=== PATIENT | female | born 1990 | race African-American/Black ===

== ENCOUNTER 2019-11-13 13:00 | Emergency (ER) | payer OTHER, SELFPAY ==
--- NOTE | ~2019-11-13 | US_ITS ---
EXAMINATION: US OB <=14 wk fetus w TV EXAM DATE: 11/13/2019 17:22 INDICATION: Abdominal pain. First trimester. TECHNIQUE: Pelvic obstetrical transabdominal sonogram was performed by a technologist. There are mu ltiple grayscale and Doppler images available for interpretation. There are no earlier studies of th is gestation for comparison. FINDINGS: Uterus measures 8.5 x 4.0 x 5.0 cm with the endometrium measuring 10 mm in thickness. There is no intrauterine or extrauterine identified, correlate with the beta hCG levels. Right ovary measures 4.7 x 3.2 x 3.0 cm with isoechoic lesion probably fluid filled with increased th rough transmission measuring 2.1 x 1.6 x 2.1 cm, could be a corpus luteal or hemorrhagic cyst. No ruben rounding hypervascularity. Color and Doppler flow to this ovary confirmed. Left ovary measures 2.8 x 2.2 x 2.3 cm, with an anechoic cyst measuring 1.5 cm. Color and Doppler aide w confirmed. Small amount of free fluid in the pelvic cul-de-sac. Early intrauterine or recent spontaneous are common causes of elevated beta hCG in absence of intrauterine confirmation. Ultrasound can sometimes identify, but never exclud e an ectopic in the setting of positive beta hCG. Follow up as warranted clinically with s erial beta hCG levels or ultrasound. IMPRESSION: No intrauterine or extrauterine identified. Follow-up as indicated clinically. Right ovarian lesion probably corpus luteal or hemorrhagic cyst. Reviewed, dictated and finalized at location A. IMPRESSION: No intrauterine or extrauterine identified. Follow-up as indicated clinically. Right ovarian lesion probably corpus luteal or hemorrhag ic cyst.
[2019-11-13 13:03] VITALS: BP 134/67; PULSE 106; RESP 18; TEMP 36.6; O2SAT 100
[2019-11-13 13:16] VITALS: BP 134/67; PULSE 106; RESP 16; TEMP 36.6; O2SAT 100
[2019-11-13 13:40] LABS: Basophils Percent Auto 0.4 % (0.2-1.2); Eosinophils Absolute Auto 0.6 K/mm3 (0-0.3); Eosinophils Percent Auto 12.4 % (0-4.4); Hematocrit 33.7 % (37.0-47.0); Hemoglobin 11.4 g/dL (12.0-15.0); Lymphocytes Absolute Auto 1.38 K/mm3 (0.9-3.2); Lymphocytes Percent Auto 29.6 % (18.3-44.2); Mean Corpuscular HGB Conc 33.8 g/dl (32-36); Mean Corpuscular Hemoglobin 29.5 pg (26-34); Mean Corpuscular Volume 87.3 fl (80-100); Mean Platelet Volume 7.9 fl (7.4-10.4); Monocytes Absolute Auto 0.4 K/mm3 (0.1-0.6); Monocytes Percent Auto 8.8 % (2.6-8.5); Neutrophils Absolute Auto 2.3 K/mm3 (1.3-6.7); Neutrophils Percent Auto 48.8 % (45.5-73.1); Platelet Count Result 310 k/mm3 (150-375); Red Blood Count 3.86 M/mm3 (4.2-5.4); Red Cell Distribution Width 14.4 % (11.5-14.5); White Blood Count 4.7 K/mm3 (4.5-10.0)
[2019-11-13 13:53] LABS: Alanine Aminotransferase 15 U/L (4-35); Albumin Level 4.2 g/dL (3.5-5.1); Alkaline Phosphatase 73 U/L (38-126); Aspartate Amino Transferase 25 U/L (14-36); Bilirubin,Total 0.5 mg/dL (0.2-1.3); Blood Urea Nitrogen 8 mg/dL (7-17); Calcium 8.8 mg/dL (8.4-10.2); Carbon Dioxide 27 mmol/L (22-30); Chloride 102 mmol/L (98-107); Estimated CRCL calculation 128 ml/min; Estimated Glomerular Filt Rate > 60; Glucose 94 mg/dL (65-105); Lipase 35 U/L (23-300); Potassium 3.6 mmol/L (3.4-5.0); Sodium 136 mmol/L (137-145)
[2019-11-13] MEDS: ONDANSETRON INJ 4 MG/2 ML VIAL IV PUSH (15:01)
[2019-11-13] MEDS: SODIUM CHLORIDE 0.9% IV 1,000 ML 999 ML IV CONT (15:05)
--- NOTE | 2019-11-13 15:19 | ED.ABDPAIN ---
HPI - Abdominal Pain General Chief Complaint: Abdominal Pain <HOANG Son Last Filed: 11/13/19 20:10> Stated Complaint: abd pain <HOANG Son Last Filed: 11/13/19 20:10> Time Seen by Provider: 11/13/19 15:04 <HOANG Son Last Filed: 11/13/19 20:10> Source: patient <HOANG Son Last Filed: 11/13/19 20:10> Mode of arrival: ambulatory <HOANG Son Last Filed: 11/13/19 20:10> Limitations: no limitations <HOANG Son Last Filed: 11/13/19 20:10> History of Present Illness HPI narrative: This is a 28 year old female that presents to the ER for abdominal pain x 1 week. Reports sharp right sided abdominal pain that has been intermittent. Associated with nausea. Denies fever, vomiting, dysuria or hematuria. <Zo Weldon PA-C - Last Filed: 11/13/19 20:10> Related Data Allergies/Adverse Reactions: Allergies Allergy/AdvReac Type Severity Reaction Status Date / Time No Known Drug Allergies Allergy Unknown Verified 04/07/19 16:43 <HOANG Son Last Filed: 11/13/19 20:10> Review of Systems Review of Systems: Narrative: CONSTITUTIONAL: Denies fever GASTROINTESTINAL: Reports abdominal pain, nausea. Denies vomiting, or diarrhea. GENITOURINARY: Denies dysuria or hematuria. <Zo Weldon PA-C - Last Filed: 11/13/19 20:10> All systems reviewed & are unremarkable except as noted in HPI and below <HOANG Son Last Filed: 11/13/19 20:10> [facility] Past Medical History Medical History: Medical History (Updated 11/14/19 @ 00:00 by Av Fernandez) History of depression <HOANG Son Last Filed: 11/13/19 20:10> Social History Social History: Social History (Updated 05/11/20 @ 15:22 by Zo Weldon PA-C) Substance use type: marijuana Gender identity (if verbalized by the patient): Female <Zo Weldon PA-C - Last Filed: 11/13/19 20:10> Exam Narrative: Exam Narrative: GENERAL: Well-appearing, well-nourished, and in no acute distress. HEAD: Normocephalic, atraumatic. EYES: EOMI. CHEST: Clear to auscultation. No respiratory distress. No wheezes rales or rhonchi HEART: Regular rate and rhythm. No murmur heard. Normal peripheral pulses. ABDOMEN: Soft, nondistended, normal active bowel sounds. Tender to palpation in the RLQ, without guarding EXTREMITIES: Normal range of motion. No edema. SKIN: Warm, dry, no rash. NEURO: No focal deficits. Alert and oriented x3. PSYCH: Normal mood and affect <Zo Weldon PA-C - Last Filed: 11/13/19 20:10> Course Consultations Consultation #1: Spoke with electrical & instrumentation supervisor doctor for Dr. Rolon about workup who would like patient to follow up in clinic <Zo Weldon PA-C - Last Filed: 11/13/19 20:10> Date: 11/13/19 <Zo Weldon PA-C - Last Filed: 11/13/19 20:10> Time: 20:08 <Zo Weldon PA-C - Last Filed: 11/13/19 20:10> Vital Signs Vital signs: Vital Signs Temperature 97.8 F 11/13/19 13:03 Pulse Rate 106 H 11/13/19 13:03 Respiratory Rate 18 11/13/19 13:03 Blood Pressure 134/67 11/13/19 13:03 Pulse Oximetry 100 11/13/19 13:03 Temperature 97.8 F 11/13/19 20:34 Pulse Rate 71 11/13/19 20:34 Respiratory Rate 18 11/13/19 20:34 Blood Pressure 123/70 11/13/19 20:34 Pulse Oximetry 99 11/13/19 20:34 <Zo Weldon PA-C - Last Filed: 11/13/19 20:10> Vital Signs Temperature 97.8 F 11/13/19 13:03 Pulse Rate 106 H 11/13/19 13:03 Respiratory Rate 18 11/13/19 13:03 Blood Pressure 134/67 11/13/19 13:03 Pulse Oximetry 100 11/13/19 13:03 Temperature 97.8 F 11/13/19 20:34 Pulse Rate 71 11/13/19 20:34 Respiratory Rate 18 11/13/19 20:34 Blood Pressure 123/70 11/13/19 20:34 Pulse Oximetry 99 11/13/19 20:34 <Tanesha Garcia MD - Last Filed: 11/14/19 07:39> MDM - Abdominal Pain MDM Narrative Medical decision m
[2019-11-13 15:52] LABS: Add Urine Microscopic? NO; Appearance Urine Clear (Clear); Bilirubin Urine Negative (Negative); Blood Urine Negative (Negative); Color Urine Yellow (Yellow); Glucose Urine UA Negative (Negative); Ketones Urine Negative (Negative); Leukocyte Esterase Ur Negative LEU/UL (Negative); Nitrate Urine Negative (Negative); Protein Urine Negative (Negative); Specific Grav Ur 1.012 (1.001-1.035); Urobilinogen Urine Negative mg/dL (<2.0)
[2019-11-13 17:40] VITALS: BP 111/73; PULSE 75; RESP 12; O2SAT 99
[2019-11-13 20:34] VITALS: BP 123/70; PULSE 71; RESP 18; TEMP 36.6; O2SAT 99
== END 2019-11-13 20:35 | disposition home or self-care (01) ==
PROVIDERS: Physician Assistant; Emergency Provider Emergency Medicine
DX: O34.81 Maternal care for other abnormalities of pelvic organs, first trimester (principal); N83.201 Unspecified ovarian cyst, right side; Z3A.01 Less than 8 weeks gestation of pregnancy
CPT/HCPCS: 36415; 76801; 76817; 80053; 81003; 81025; 83690; 84702; 85025; 96361; 96374; 96375; 99284; J0131; J2405; J7030

== ENCOUNTER 2019-11-16 13:52 | Emergency (ER) | payer OTHER, SELFPAY ==
[2019-11-16] VITALS (31 sets, daily range): BP systolic 97–125; BP diastolic 63–81; PULSE 72–92; RESP 16–18; TEMP 36.8–37; O2SAT 85–100
--- NOTE | ~2019-11-16 | US_ITS ---
US OB <=14 wk fetus w TV DATE: 11/16/2019 15:49 INDICATION: Right lower quadrant pain TECHNIQUE: Real-time imaging via transabdominal and transvaginal approaches COMPARISON: 11/13/2019 obstetrical ultrasound FINDINGS: The uterus measures approximately 7 cm height, 4.4 cm AP and 5.8 cm transverse dimension. N o intrauterine gestational sac is identified. The central endometrial echo complex measures approxima tely 8 mm AP dimension. There is an approximately 13 x 11 x 15 mm left ovarian cyst. There is blood flow to both ovaries. No pelvic mass or abnormal free pelvic fluid collection is evident. IMPRESSION: Up to 15 mm left ovarian cyst No intrauterine gestational sac is identified Reviewed, dictated and finalized at Location [facility]. Reviewed, dictated and finalized at location A.
--- NOTE | 2019-11-16 14:56 | ED.FEMALEGU ---
HPI - Female Genitourinary General Chief complaint: Vaginal Bleeding Stated complaint: /bleeding/5 weeks Time Seen by Provider: 11/16/19 14:30 Source: patient Mode of arrival: ambulatory Limitations: no limitations History of Present Illness HPI Narrative: Patient is a 28-year-old female who presents to the emergency department with complaint of right lower abdominal/pelvic pain. Patient also reports some blood-tinged vaginal mucoid discharge. Patient was seen here in the emergency department 3 days ago for symptoms of right lower abdominal pain. Ultrasound at that time showed no evidence of intrauterine or extrauterine . Patient was noted to have a right ovarian lesion possibly a corpus luteal or hemorrhagic cyst. No evidence of torsion was noted. hCG level 3 days ago was 2207. Patient states she has not been able to follow-up with her LOAN EXPEDITOR who is currently out of town. Patient states the pain is a bit better today than what it has been, but she is now having bloody discharge and still does note pain. The pain subsides when she is at rest and is worse when she is moving at all. MD elicited complaint: vaginal bleeding Location of symptoms: RLQ and pelvis Vaginal bleeding: scant and bright red Patient : Yes Date of Last Menstrual Period: 10/14/19 Related Data : 3 Para: 2 Total number of abortions (spontaneous and elective): 0 Home Medications Medication Instructions Recorded Confirmed 21-iron fu-folic acid 1 tablet PO 11/16/19 [ Complete] Allergies Allergy/AdvReac Type Severity Reaction Status Date / Time No Known Drug Allergies Allergy Unknown Verified 04/07/19 16:43 Review of Systems Review of Systems: All systems reviewed & are unremarkable except as noted in HPI and below PMFSH Past Medical History Medical History History of depression Social History Social History (Updated 11/16/19 @ 14:57 by Inez Lara MD) Smoking status: Former smoker Tobacco type: cigarettes Substance use type: marijuana Gender identity (if verbalized by the patient): Female Exam Const: General: cooperative, no acute distress and alert Nutritional Appearance: well nourished Orientation/consciousness: patient oriented x3 Limitations: no limitations Resp: Effort & Inspection: normal respiratory effort Auscultation: clear to auscultation bilaterally Cardio: Rate: regular rate Rhythm: regular rhythm GI: GI Palp: Yes Soft to palpation and Yes Tenderness to palpation present (GI) (Mild right lower quadrant) Auscultation: normal bowel sounds : Speculum Exam - Vagina: vaginal bleeding (Small amount dark in vaginal vault) and No tissue present in vagina Speculum Exam - Cervix: Cervical os closed Back/Spine/Pelvis: Back: no CVA tenderness Thoracic/Lumbar Spine: thoraco-lumbar ROM normal Skin: General skin exam: normal color Neuro: General: patient oriented x3 Cognition (Neuro): normal cognition Speech: normal speech Extrem: General: normal to inspection, full ROM and no clubbing, cyanosis or edema Psych: Mental Status: mental status grossly normal Affect: normal affect Attitude: cooperative Course Course Emergency Course: Patient with significant drop in beta-hCG level compared to ED visit 3 days ago. Patient still with no findings to suggest intrauterine or ectopic on ultrasound. Case discussed with Dr. Sosa who will follow-up patient in the office for repeat hCG levels. Patient advised she is likely having a miscarriage. Consultations Consultation #1: Case discussed with Dr. Sosa, LOAN EXPEDITOR, who will follow-up patient in the office next week. Requested order for hCG level in 1 week. Date: 11/16/19 Time: 18:10 Vital Signs Vital signs: Vital Signs Temperature 98.6 F 11/16/19 14:07 Pulse Rate 92 11/16/19 14:07 Respiratory Rate 16 11/16/19 14:07 Bl
[2019-11-16 16:07] LABS: Basophils Percent Auto 0.7 % (0.2-1.2); Eosinophils Absolute Auto 0.6 K/mm3 (0-0.3); Hematocrit 33.2 % (37.0-47.0); Immature Granulocyte Absolute 0.01 K/mm3 (0.00-0.031); Immature Granulocyte Percent A 0.2 % (0-0.5); Lymphocytes Absolute Auto 1.41 K/mm3 (0.9-3.2); Lymphocytes Percent Auto 23.5 % (18.3-44.2); Mean Corpuscular HGB Conc 33.1 g/dl (32-36); Mean Corpuscular Hemoglobin 29.6 pg (26-34); Mean Corpuscular Volume 89.5 fl (80-100); Mean Platelet Volume 8.6 fl (7.4-10.4); Monocytes Absolute Auto 0.5 K/mm3 (0.1-0.6); Monocytes Percent Auto 8.2 % (2.6-8.5); Neutrophils Absolute Auto 3.5 K/mm3 (1.3-6.7); Neutrophils Percent Auto 57.4 % (45.5-73.1); Platelet Count Result 312 k/mm3 (150-375); Red Blood Count 3.71 M/mm3 (4.2-5.4); Red Cell Distribution Width 14.5 % (11.5-14.5)
[2019-11-16 16:14] LABS: Add Urine Microscopic? YES; Appearance Urine Clear (Clear); Bilirubin Urine Negative (Negative); Blood Urine 1+ (Negative); Color Urine Yellow (Yellow); Glucose Urine UA Negative (Negative); Ketones Urine Negative (Negative); Leukocyte Esterase Ur Negative LEU/UL (Negative); Mucus Urine Heavy /lpf; Nitrate Urine Negative (Negative); Protein Urine Negative (Negative); RBC Urine 0-2 /hpf (0-2); Specific Grav Ur 1.013 (1.001-1.035); Squamous Epithelial Cell Urine Rare /hpf (Few); Urobilinogen Urine Negative mg/dL (<2.0); WBC Urine 0-3 /hpf
[2019-11-16 16:22] LABS: Alanine Aminotransferase 22 U/L (4-35); Albumin Level 4.5 g/dL (3.5-5.1); Alkaline Phosphatase 77 U/L (38-126); Aspartate Amino Transferase 36 U/L (14-36); Bilirubin,Total 0.3 mg/dL (0.2-1.3); Blood Urea Nitrogen 11 mg/dL (7-17); Calcium 9.1 mg/dL (8.4-10.2); Carbon Dioxide 27 mmol/L (22-30); Chloride 103 mmol/L (98-107); Estimated CRCL calculation 114 ml/min; Estimated Glomerular Filt Rate > 60; Glucose 73 mg/dL (65-105); Potassium 3.7 mmol/L (3.4-5.0); Sodium 137 mmol/L (137-145)
== END 2019-11-16 19:50 | disposition home or self-care (01) ==
PROVIDERS: Physician Assistant; Emergency Provider Emergency Medicine
DX: O20.0 Threatened abortion (principal); Z87.891 Personal history of nicotine dependence; Z3A.00 Weeks of gestation of pregnancy not specified
CPT/HCPCS: 36415; 76801; 76817; 80053; 81001; 84702; 85025; 85461; 99284

== ENCOUNTER 2019-11-29 15:51 | Outpatient (CLI) | payer OTHER, SELFPAY ==
--- NOTE | ~2019-11-29 | CT_ITS ---
EXAMINATION: CT abdomen pelvis w con EXAM DATE: 11/29/2019 16:23 INDICATION: Right-sided abdominal pain, symptoms 2 weeks. TECHNIQUE: Spiral CT of the abdomen and pelvis was performed following intravenous injection of 100 m L Omnipaque 350. Axial, coronal and sagittal images were reviewed. The dose-length product (DLP) fo r this examination was 483.49 mGy-cm. The exposure was tailored according to patient size (auto mA e xposure control), and iterative reconstruction (ASIR) was used as additional dose reduction technique . There is no prior study for comparison. FINDINGS: The liver, spleen, adrenal glands and pancreas are unremarkable. Gallbladder is unremarka ble. No biliary obstruction. Portal and splenic veins are patent. Kidneys enhance symmetrically. There is no hydronephrosis. The uterus is anteverted and morphologically normal. Small amount of fr ee pelvic fluid, could be from recently ruptured right-sided hemorrhagic cyst. If symptoms persist co nsider pelvic sonogram. The bladder is unremarkable. There is no retroperitoneal or pelvic lymphade nopathy. Probable identification of a normal appendix. No pericecal inflammation. The stomach and small zeina l are unremarkable. There is expected amount of colonic stool. No free intraperitoneal gas. The heart is normal in size. There are no pericardial or pleural effusions. The lung bases are unremark able. The bones are unremarkable. IMPRESSION: Possible recently ruptured right sided ovarian hemorrhagic cyst; if symptoms persist, con it program auditor pelvic sonogram. Reviewed, dictated and finalized at location A. IMPRESSION: Possible recently ruptured right sided ovarian hemorrhagic cyst; if symptoms persist, consider pelvic sonogram.
== END 2019-11-29 15:52 | disposition home or self-care (01) ==
PROVIDERS: PCP Nurse Practitioner Family; Visit Provider Nurse Practitioner Family
DX: R10.9 Unspecified abdominal pain (principal)
CPT/HCPCS: 74177; Q9967

== ENCOUNTER 2020-03-04 09:52 | Outpatient (CLI) | payer OTHER, SELFPAY ==
--- NOTE | ~2020-03-04 | US_ITS ---
EXAMINATION: US OB <=14 wk fetus w TV DATE: 03/04/2020 11:04 INDICATION: History of spontaneous, first trimester dating TECHNIQUE: Real-time pelvic transabdominal and transvaginal ultrasound was performed. COMPARISON: None. FINDINGS: The uterus measures 9.2 x 5.5 x 5.1 cm. There is an intrauterine gestational sac. A yolk s ac is identified. heart motion is identified by M-mode Doppler but not measured due to small fe shaan pole size. The mean sac diameter measures 9 mm , which correlates with an estimated gestati onal age of 5 weeks and 5 day(s) (+/-) 3 day(s). The right ovary measures 1.9 x 6.4 x 2.0 cm. The left ovary measures 2.4 x 2.3 x 2.4 cm. There is nor mal vascular flow in the ovaries. There is a small amount of free fluid in the pelvis. IMPRESSION: 1. Live intrauterine with an estimated gestational age of 5 weeks and 5 day(s) (+/-) 3 day( s) and an estimated delivery date of 10/30/2020 based on mean sac diameter. Reviewed, dictated and finalized at location A. IMPRESSION: 1. Live intrauterine with an estimated gestational age of 5 weeks and 5 day(s) (+/-) 3 day(s) and an estimated delivery date of 10/30/2020 based on m pina sac diameter.
== END 2020-03-04 09:53 | disposition home or self-care (01) ==
LOC: ANHIMG 09:54
PROVIDERS: PCP Nurse Practitioner Family; Visit Provider Obstetrics & Gynecology Gynecology
DX: O26.21 Pregnancy care for patient with recurrent pregnancy loss, first trimester (principal); Z3A.01 Less than 8 weeks gestation of pregnancy
CPT/HCPCS: 76801; 76817

== ENCOUNTER 2020-05-09 12:36 | Outpatient (RCR) | payer OTHER, SELFPAY ==
--- NOTE | 2020-05-09 13:58 | PTOPEVAL ---
INITIAL PHYSICAL THERAPY EVALUATION and PLAN OF CARE Thank you for referring Gamaliel Jack to [facility].? Gamaliel is scheduled to be seen for physical therapy? 1-2x/week for 4 weeks. Please review, sign, date and return this plan of care ABDULKADIR. I agree with and certify that the following plan of care is medically necessary. Referring Physician Date Admitting Provider: Attending Provider: Whitney Sosa MD Referring Provider: *PT Outpatient Evaluation Start: 05/09/20 12:49 Freq: Status: Active Protocol: Document 05/09/20 12:45 PAUL (Rec: 05/09/20 13:58 PAUL [id number]) Therapy Assessment Status Assessment Status Assessment Status Evaluation Outpatient Past Medical History Past Medical History Source of Past Medical History Patient Neurological History Hx Neurological Disorders No Significant History Cardiovascular History Hx Cardiac Disorders No Significant History Respiratory History Hx Respiratory Disorders No Significant History Gastrointestinal History Hx Gastroesophageal Reflux Disease Yes Genitourinary History Hx Genitourinary Disorders No Significant History Musculoskeletal History Hx Back Injury Yes: lumbar strain Hx Fractures Yes: L 3rd finger - 2015 Endocrine History Hx Endocrine Disorders No Significant History Psychosocial History Hx Anxiety Yes Evaluation Information Problem Diagnosis back and pelvic pain - 15 wks gestation Onset began 8-10 weeks gestation Subjective Information Gamaliel reports that this is Query Text:As Reported By Patient/ her 3rd - the back Family and pubic symphysis has progressively gotten worse with each . Gamaliel reports that the pain as lessen a little bit as the fetus has grown - she has a retroverted uterus - thinks fetus is straigthening things out. No difficulty with labor and deliveries. 1st child - discomfort began around 7 months, 2nd child around 5 months. Lying down on a soft surface feels the best. Walking for extended period, running, moving real quickly, pushing grocery cart. Stairs uncomfortable as well - lots of steps at her home. Prior Level of Function Activity Level (Last 3 Months) Occupation
--- NOTE | 2020-05-23 08:17 | PCPTNOTE ---
Patient did not show up for scheduled appointment this date. Phone call made - pt stated that she is bleeding (pt is ) - going to call MD today. This was her only scheduled appointment - will await to see if she returns to PT.
--- NOTE | 2020-06-04 11:45 | PCPTNOTE ---
PHYSICAL THERAPY DISCHARGE SUMMARY Admitting Provider: Attending Provider: Whitney Sosa MD Patient:Gamaliel Jack Date of :1990 Gamaliel has not returned for any further treatments since 05/09/2020, therefore she will be discharged at this time. Patient?s initial visit was on 05/09/2020 12:30 and she had a total of 1 visit. She did not attend 05/23/2020 visit due to vaginal bleeding. She has not called to reschedule any further appointments. Thank you for referring Gamaliel to [facility]. Please review, sign, date and return this discharge summary ABDULKADIR. I have been updated about Gamaliel's current status and I agree with discharge from the above service at this time. Referring Physician Date
== END 2020-06-04 14:59 | disposition home or self-care (01) ==
LOC: ANHPT 12:36
PROVIDERS: PCP Nurse Practitioner Family; Visit Provider Obstetrics & Gynecology Gynecology
DX: M54.5 Low back pain (principal); R10.2 Pelvic and perineal pain
CPT/HCPCS: 97110; 97161

== ENCOUNTER 2020-06-17 15:07 | Emergency (ER) | payer OTHER, SELFPAY ==
[2020-06-17 15:13] VITALS: BP 117/79; PULSE 85; RESP 18; TEMP 37; O2SAT 98
--- NOTE | 2020-06-17 15:37 | ED.GENADULT ---
HPI - General Adult General Chief complaint: Unspecified Stated complaint: infected external hemorrhoid Time Seen by Provider: 06/17/20 15:13 Source: patient Mode of arrival: ambulatory Limitations: no limitations History of Present Illness HPI narrative: Patient is a 29-year-old female who presents to emergency department for evaluation of hemorrhoidal pain patient for the last 2 weeks has been experiencing hemorrhoids patient with history of hemorrhoids has follow-up with general surgery for first visit. Patient notes discomfort has been attempting [id number] medications with minimal improvement denies fever chills nausea vomiting otherwise on arrival is in no distress denies any constipation. Related Data Home Medications Medication Instructions Recorded Confirmed 21-iron fu-folic acid 1 tablet PO 11/16/19 [ Complete] propranolol 80 mg capsule,24 80 mg PO DAILY 06/17/20 hr,extended release venlafaxine 75 mg capsule,extended 75 mg PO DAILY 06/17/20 release 24 hr Allergies Allergy/AdvReac Type Severity Reaction Status Date / Time No Known Drug Allergies Allergy Unknown Unknown Verified 06/17/20 15:08 Review of Systems Review of Systems: All systems reviewed & are unremarkable except as noted in HPI and below PMFSH Past Medical History Medical History History of depression Surgical History Surgical History Hemorrhoid lanced Family History Family History (Updated 06/17/20 @ 14:07 by Maribell Lin [facility]) Mother Lupus Sibling Hypertension Social History Social History Smoking status: Former smoker Tobacco type: cigarettes Alcohol intake: never Substance use type: marijuana 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 HEAD: Normocephalic, atraumatic. EYES: PERRLA and EOMI. ENT: Nares clear, no rhinorrhea or epistaxis. Mucous membranes moist. CHEST: Clear to auscultation. No respiratory distress. No wheezes rales or rhonchi HEART: Regular rate and rhythm. No murmur heard. Normal peripheral pulses. ABDOMEN: Soft, nontender, nondistended RECTAL: Patient with 3 large hemorrhoids no active bleeding or cellulitic changes EXTREMITIES: Normal range of motion. No edema. SKIN: Warm, dry, no rash. NEURO: No focal deficits. Alert and oriented x3. PSYCH: Normal mood and affect. Course Course Emergency Course: Patient with follow-up with general surgery in the next several days will be managed symptomatically until then with topical medications and sitz bath's Vital Signs Vital signs: Vital Signs Temperature 98.6 F 06/17/20 15:13 Pulse Rate 85 06/17/20 15:13 Respiratory Rate 18 06/17/20 15:13 Blood Pressure 117/79 06/17/20 15:13 Pulse Oximetry 98 06/17/20 15:13 Temperature 98.6 F 06/17/20 15:13 Pulse Rate 85 06/17/20 15:13 Respiratory Rate 18 06/17/20 15:13 Blood Pressure 117/79 06/17/20 15:13 Pulse Oximetry 98 06/17/20 15:13 Medical Decision Making MDM Narrative Medical decision making narrative: Patient with hemorrhoids no distress will be managed outpatient with close follow-up with general surgery felt appropriate for outpatient reevaluation Vital Signs Vital Signs: Vital Signs Temperature 98.6 F 06/17/20 15:13 Pulse Rate 85 06/17/20 15:13 Respiratory Rate 18 06/17/20 15:13 Blood Pressure 117/79 06/17/20 15:13 Pulse Oximetry 98 06/17/20 15:13 Temperature 98.6 F 06/17/20 15:13 Pulse Rate 85 06/17/20 15:13 Respiratory Rate 18 06/17/20 15:13 Blood Pressure 117/79 06/17/20 15:13 Pulse Oximetry 98 06/17/20 15:[address]
== END 2020-06-17 15:59 | disposition home or self-care (01) ==
PROVIDERS: Emergency Provider Family Medicine; PCP Nurse Practitioner Family
DX: K64.9 Unspecified hemorrhoids (principal); F32.9 Major depressive disorder, single episode, unspecified; Z87.891 Personal history of nicotine dependence
CPT/HCPCS: 99283

== ENCOUNTER 2020-11-20 09:47 | Outpatient (CLI) | payer OTHER, SELFPAY ==
--- NOTE | ~2020-11-20 | US_ITS ---
EXAMINATION: US OB <=14 wk fetus w TV EXAM DATE: 11/20/2020 10:25 INDICATION: , dating. 1st trimester. TECHNIQUE: Pelvic obstetrical transabdominal sonogram was performed by a technologist. There are mu ltiple grayscale and Doppler images available for interpretation. There are no earlier studies of th is gestation for comparison. FINDINGS: Uterus measures 10.0 x 5.4 x 6.1 cm. There is intrauterine gestation sac. pole with heart rate confirmed at 110 beats per minute. The 3 mm crown-rump length corresponds to estimated g estational age by ultrasound of 6 weeks 0 days, estimated date of confinement 07/16/2021. Yolk sac is identified. There is no sonographic evidence of subchorionic hemorrhage. Corpus luteal cyst prob ably in the left ovary. Ovaries are both normal in size, right measuring 2.0 x 1.2 x 1.4 cm and the l eft measuring 2.4 x 2.6 x 2.9 cm. IMPRESSION: Early live intrauterine gestation, age by ultrasound 6 weeks 0 days. Reviewed, dictated and finalized at location A. IMPRESSION: Early live intrauterine gestation, age by ultrasound 6 weeks 0 day s.
== END 2020-11-20 09:48 | disposition home or self-care (01) ==
PROVIDERS: Visit Provider Obstetrics & Gynecology Gynecology
DX: Z36.9 Encounter for antenatal screening, unspecified (principal); Z3A.01 Less than 8 weeks gestation of pregnancy
CPT/HCPCS: 76801; 76817

== ENCOUNTER 2020-12-19 12:59 | Outpatient (CLI) | payer OTHER, SELFPAY ==
--- NOTE | ~2020-12-19 | US_ITS ---
EXAMINATION: US OB <= 14 weeks fetus EXAM DATE: 12/19/2020 13:30 INDICATION: , vaginal spotting. 1st trimester. TECHNIQUE: Pelvic obstetrical transabdominal sonogram was performed by a technologist. There are mu ltiple grayscale and Doppler images available for interpretation. Comparison is made to prior examina tion from 11/20/2020. FINDINGS: Uterus measures 12.3 x 7.8 x 7.2 cm. There is intrauterine gestation sac. pole with heart rate confirmed at 165 beats per minute. The 3.4 cm crown-rump length corresponds to estimated gestational age by ultrasound of 10 weeks 2 days. Yolk sac is identified. There is no sonographic evidence of subchorionic hemorrhage. Left ovary identified and is morphologically normal. IMPRESSION: Early live intrauterine gestation without evidence of subchorionic hematoma. Reviewed, dictated and finalized at location B.
== END 2020-12-19 13:00 | disposition home or self-care (01) ==
PROVIDERS: PCP Family Medicine; Visit Provider Obstetrics & Gynecology Gynecology
DX: Z34.91 Encounter for supervision of normal pregnancy, unspecified, first trimester (principal); Z3A.10 10 weeks gestation of pregnancy
CPT/HCPCS: 76801

== ENCOUNTER 2022-02-26 14:22 | Outpatient (CLI) | payer OTHER, SELFPAY ==
[2022-02-28 14:01] LABS: NIL 0.01 IU/mL; Quantiferon TB Plus, 1T NEGATIVE (NEGATIVE)
== END 2022-02-26 14:23 | disposition home or self-care (01) ==
LOC: ANHLAB 14:26
PROVIDERS: PCP Family Medicine; Visit Provider Internal Medicine
DX: Z11.1 Encounter for screening for respiratory tuberculosis (principal)
CPT/HCPCS: 36415; 86480

== ENCOUNTER 2022-04-18 17:17 | Emergency (ER) | payer OTHER, SELFPAY ==
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
[2022-04-18 17:18] VITALS: BP 127/45; PULSE 105; RESP 18; TEMP 36.2; O2SAT 100
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
== END 2022-04-18 19:10 | disposition home or self-care (01) ==
PROVIDERS: Emergency Provider Nurse Practitioner Family; PCP Family Medicine
DX: S60.221A Contusion of right hand, initial encounter (principal); S60.222A Contusion of left hand, initial encounter; S63.501A Unspecified sprain of right wrist, initial encounter; S63.502A Unspecified sprain of left wrist, initial encounter; M54.2 Cervicalgia; F32.A Depression, unspecified; Y04.2XXA Assault by strike against or bumped into by another person, initial encounter
CPT/HCPCS: 72040; 73110; 73130; 99284

== ENCOUNTER 2023-05-09 20:23 | Emergency (ER) | payer OTHER, SELFPAY ==
[2023-05-09 20:49] VITALS: BP 108/66; PULSE 77; RESP 18; TEMP 36.4; O2SAT 98
--- NOTE | 2023-05-09 23:21 | ED.EXTPRO ---
HPI - Extremity Problem General Chief complaint: Extremity Problem,Nontraumatic Stated complaint: Right leg/calf painx1 week Time Seen by Provider: 05/09/23 23:06 Source: patient Mode of arrival: ambulatory Limitations: no limitations History of Present Illness HPI Narrative: This is a 31-year-old female presents the emergency department for right calf pain ongoing over the last week. No known injury or trauma. No recent travel or surgeries. Denies any other associated symptoms. Denies fevers, erythema, or edema. Related Data Home Medications Medication Instructions Recorded Confirmed propranolol 80 mg capsule,24 80 mg PO DAILY 06/17/20 08/14/20 hr,extended release venlafaxine 75 mg capsule,extended 75 mg PO DAILY 06/17/20 08/14/20 release 24 hr Allergies Allergy/AdvReac Type Severity Reaction Status Date / Time No Known Drug Allergies Allergy Unknown Unknown Verified 08/14/20 09:42 Review of Systems Review of Systems: CONSTITUTIONAL: Denies fever SKIN: Denies rash MUSCULOSKELETAL: Reports myalgia. 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 HEAD: Normocephalic, atraumatic. EYES: EOMI. CHEST: Clear to auscultation. No respiratory distress. No wheezes rales or rhonchi HEART: Regular rate and rhythm. No murmur heard. Normal peripheral pulses. EXTREMITIES: Normal range of motion. No edema or erythema. Normal DP pulse. Normal sensation SKIN: Warm, dry, no rash. NEURO: No focal deficits. Alert and oriented x3. PSYCH: Normal mood and affect Course Course Emergency Course: patient updated on workup and agrees with plan of care Vital Signs Vital signs: Vital Signs Temperature 97.6 F 05/09/23 20:49 Pulse Rate 77 05/09/23 20:49 Respiratory Rate 18 05/09/23 20:49 Blood Pressure 108/66 05/09/23 20:49 Pulse Oximetry 98 05/09/23 20:49 Oxygen Delivery Room Air 05/09/23 20:49 Temperature 97.6 F 05/09/23 20:49 Pulse Rate 63 05/09/23 23:44 Respiratory Rate 16 05/09/23 23:44 Blood Pressure 105/68 05/09/23 23:44 Pulse Oximetry 100 05/09/23 23:44 Oxygen Delivery Room Air 05/09/23 20:49 MDM - Extremity (Nontraumatic) MDM Narrative Medical decision making narrative: Patient presents to the emergency department for right calf pain. Ongoing over the last week. No recent injuries or trauma. Patient is neurovascularly intact. Her vitals are stable. CBC and metabolic panel without concerning findings. D-dimer is not elevated. Patient updated on workup. Will be set up for an ultrasound of her right leg in the morning. She is to follow up with her primary provider. She was given warnings to return to the ER Differential Diagnosis Differential diagnosis: Likely cellulitis, superficial thrombophlebitis and deep vein thrombosis of lower extremity Lab Data Attestation: I reviewed the patient's lab results. 05/09/23 23:36 05/09/23 23:36 Labs: Lab Results 05/09/23 Range/Units 23:36 WBC 6.9 (4.5-10.0) K/mm3 RBC 4.12 L (4.2-5.4) M/mm3 Hgb 11.8 L (12.0-15.0) g/dL Hct 36.8 L
[2023-05-09 23:41] LABS: Basophils Percent Auto 0.3 % (0.2-1.2); Eosinophils Absolute Auto 0.3 K/mm3 (0-0.3); Eosinophils Percent Auto 3.9 % (0-4.4); Hematocrit 36.8 % (37.0-47.0); Hemoglobin 11.8 g/dL (12.0-15.0); Immature Granulocyte Absolute 0.01 K/mm3 (0.00-0.031); Immature Granulocyte Percent A 0.1 % (0-0.5); Lymphocytes Absolute Auto 2.29 K/mm3 (0.9-3.2); Mean Corpuscular HGB Conc 32.1 g/dl (32-36); Mean Corpuscular Hemoglobin 28.6 pg (26-34); Mean Corpuscular Volume 89.3 fl (80-100); Mean Platelet Volume 8.2 fl (7.4-10.4); Monocytes Absolute Auto 0.6 K/mm3 (0.1-0.6); Monocytes Percent Auto 8.1 % (2.6-8.5); Neutrophils Absolute Auto 3.8 K/mm3 (1.3-6.7); Neutrophils Percent Auto 54.6 % (45.5-73.1); Platelet Count Result 313 k/mm3 (150-375); Red Blood Count 4.12 M/mm3 (4.2-5.4); Red Cell Distribution Width 15.1 % (11.5-14.5); White Blood Count 6.9 K/mm3 (4.5-10.0)
[2023-05-09 23:44] VITALS: BP 105/68; PULSE 63; RESP 16; O2SAT 100
[2023-05-09 23:51] LABS: Anion Gap 4 mmol/L (8-16); Blood Urea Nitrogen 12 mg/dL (7-17); Calcium 8.8 mg/dL (8.4-10.2); Carbon Dioxide 25 mmol/L (22-30); Chloride 107 mmol/L (98-107); Estimated CRCL calculation 99 ml/min; Estimated Glomerular Filt Rate > 60; Glucose 86 mg/dL (65-110); INR 0.9; Magnesium 2.1 mg/dL (1.6-2.3); Potassium 3.7 mmol/L (3.4-5.0); Prothrombin Time 12.9 Seconds (11.1-14.7); Sodium 136 mmol/L (137-145)
[2023-05-10 00:17] LABS: D Dimer 0.37 ug/mL (<0.48)
[2023-05-10 00:48] VITALS: BP 102/69; PULSE 64; RESP 20; O2SAT 100
== END 2023-05-10 00:50 | disposition home or self-care (01) ==
PROVIDERS: Emergency Provider Physician Assistant; PCP Internal Medicine
DX: M79.661 Pain in right lower leg (principal)
CPT/HCPCS: 36415; 80048; 83735; 85025; 85380; 85610; 85730; 99283

== ENCOUNTER 2023-08-14 14:58 | Emergency (ER) | payer SELFPAY ==
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
== END 2023-08-14 15:23 | disposition left against medical advice (07) ==
PROVIDERS: PCP Internal Medicine
DX: Z53.21 Procedure and treatment not carried out due to patient leaving prior to being seen by health care provider (principal)
CPT/HCPCS: 99199

== ENCOUNTER 2023-11-15 10:52 | Outpatient (CLI) | payer OTHER, SELFPAY ==
--- NOTE | ~2023-11-15 | XR_ITS ---
Lumbosacral Spine: AP and lateral views Clinical History: Pain Findings: The normal lordotic curve is maintained. The vertebral bodies and posterior elements are i ntact. The intervertebral disc spaces are preserved. The sacroiliac joints are normally outlined. Impression: No significant abnormality. Reviewed, dictated and finalized at [facility]. Impression: No significant abnormality.
--- NOTE | ~2023-11-15 | XR_ITS ---
AP and lateral views of the right hip Clinical history: Pain Findings: No acute fracture or dislocation is seen. Osseous alignment is anatomic. Right hip joint is preserved. Soft tissues are unremarkable. Impression: No significant abnormality is seen. Reviewed, dictated and finalized at location M. Impression: No significant abnormality is seen.
--- NOTE | ~2023-11-15 | XR_ITS ---
Left Shoulder Technique: AP and axillary views were obtained. Clinical History: Pain Findings: No fracture or dislocation is seen. Osseous alignment is anatomic. The glenohumeral and acr omioclavicular joint spaces are preserved. Soft tissues are unremarkable. Impression: Unremarkable left shoulder radiographs. Reviewed, dictated and finalized at [facility]. Impression: Unremarkable left shoulder radiographs.
== END 2023-11-15 10:53 ==
PROVIDERS: PCP Internal Medicine; Visit Provider Internal Medicine
DX: M25.551 Pain in right hip (principal); M25.512 Pain in left shoulder; V89.2XXA Person injured in unspecified motor-vehicle accident, traffic, initial encounter
CPT/HCPCS: 72100; 73030; 73502

== ENCOUNTER 2024-07-04 12:55 | Emergency (ER) | payer OTHER, SELFPAY ==
--- NOTE | ~2024-07-04 | CT_ITS ---
EXAMINATION: CT abdomen pelvis w con DATE: 07/04/2024 14:58 INDICATION: RLQ abdominal pain TECHNIQUE: Computed tomography (CT) of the abdomen and pelvis was performed with 100 mL Omnipaque-350 intravenous contrast. Automated exposure control and iterative reconstruction technique were employe d. The dose-length product was 410.76 mGy-cm. COMPARISON: 11/29/2019. FINDINGS: Lower thorax: Unremarkable Liver: Normal. Biliary/Gallbladder: Gallbladder is normal. No bile duct dilation. Pancreas: No mass or duct dilation. Spleen: Normal. Adrenals:No mass. Kidneys: No suspicious mass, obstructing stone, or hydronephrosis. GI tract: Mild distal esophageal and gastric wall edema. No small or large bowel dilation. Normal eder endix. Mesentery/Peritoneum: No ascites, mass, or free air. Retroperitoneum: No mass. Pelvis: Partially distended urinary bladder with moderate wall thickening. Normal uterus and ovaries. Soft Tissues: Soft tissues and body wall unremarkable. Bones: No acute osseous finding. IMPRESSION: Mild esophagitis/gastritis. Bladder wall thickening may be secondary to cystitis or incomplete distention. Reviewed, dictated and finalized at location K. OR CIRCULAR GLASS CUTTER
--- NOTE | ~2024-07-04 | US_ITS ---
EXAMINATION: US pelvic complete w TV DATE: 07/04/2024 14:50 INDICATION: pelvic pain/RLQ abd pain TECHNIQUE: Multiple transabdominal and endovaginal sonographic images of the pelvis were obtained. COMPARISON: None. FINDINGS: Uterus: 8.0 x 4.4 x 5.2 cm. Endometrial complex measures 4 mm. Right Ovary: 2.0 x 1.5 x 1.9 cm. Vascular flow is present. No adnexal mass. Left Ovary: 2.1 x 1.5 x 1.9 cm. Vascular flow is present. No adnexal mass. There is no free fluid in the pelvis. IMPRESSION: Normal pelvic sonogram findings. Reviewed, dictated and finalized at location K. HASING MANAGER/SALES
[2024-07-04 13:05] VITALS: BP 125/73; PULSE 77; RESP 16; TEMP 36.6; O2SAT 100
--- NOTE | 2024-07-04 14:09 | ED.ABDPAIN ---
HPI - Abdominal Pain General Chief Complaint: Abdominal Pain Stated Complaint: R sided abd pain Focused HPI: 33-year-old female with history of anxiety presents to emergency department for right lower quadrant abdominal pain and pelvic pain for the past couple of days. Patient notes that she is concerned her partner has cheated on her and would like STD testing. She reports a white vaginal discharge that was itchy. She has Monistat for yeast which helped with the itchiness but now is having pelvic pain. She denies dysuria or hematuria. LMP the beginning of this month. No prior abdominal surgeries. No fever, vomiting. She is reporting nausea. GENERAL: Well-appearing, well-nourished, and in no acute distress. HEAD: Normocephalic, atraumatic. CHEST: Clear to auscultation. ?No respiratory distress. ABD: Right lower quadrant and suprapubic abdominal tenderness with no rebound or rigidity HEART: Regular rate and rhythm.? NEURO: ?Alert and oriented x3. Patient screened in triage and initial orders placed.? ?Additional care and disposition to be based upon?diagnostic testing and treatment. Related Data Home Medications ?Medication ?Instructions ?Recorded ?Confirmed ?Last Taken ?Type propranolol 80 mg capsule,24 80 mg PO DAILY 06/17/20 08/14/20 Unknown History hr,extended release venlafaxine 75 mg capsule,extended 75 mg PO DAILY 06/17/20 08/14/20 Unknown History release 24 hr Allergies Allergy/AdvReac Type Severity Reaction Status Date / Time No Known Drug Allergies Allergy Unknown Unknown Verified 08/14/20 09:42 [facility] Past Medical History Medical History GERD (gastroesophageal reflux disease) History of depression Surgical History Surgical History Hemorrhoid lanced Family History Family History Mother Lupus Sibling Hypertension Social History Social History (Updated 05/09/23 @ 23:23 by Zo Weldon PA-C) Alcohol intake: never Substance use type: marijuana Living arrangements: with family Occupation/Education: occupation 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 Gender identity (if verbalized by the patient): Female Course Vital Signs Vital signs: Vital Signs Temperature 97.8 F 07/04/24 13:05 Pulse Rate 77 07/04/24 13:05 Respiratory Rate 16 07/04/24 13:05 Blood Pressure 125/73 07/04/24 13:05 Pulse Oximetry 100 07/04/24 13:05 Temperature 97.8 F 07/04/24 13:05 Pulse Rate 77 07/04/24 13:05 Respiratory Rate 16 07/04/24 13:05 Blood Pressure 125/73 07/04/24 13:05 Pulse Oximetry 100 07/04/24 13:05 MDM - Abdominal Pain Lab Data 07/04/24 14:16 07/04/24 14:16 Labs: Lab Results 07/04/24 07/04/24 Range/Units 14:16 14:38 WBC 8.3 (4.5-10.0) K/mm3 RBC 4.50 (4.2-5.4) M/mm3 Hgb 13.4 (12.0-15.0) g/dL Hct 40.8 (37.0-47.0) % MCV 90.7 (80-100) fl MCH 29.8 (26-34) pg MCHC 32.8 (32-36) g/dl RDW 13.8 (11.5-14.5) % Plt Count 385 H (150-375) k/mm3 MPV 8.4 (7.4-10.4) fl Immature Gran % (Auto) 0.1 (0-0.5) % Neut % (Auto) 75.8 H (45.5-73.1) % Lymph % (Auto) 17.4 L (18.3-44.2) % [place] % (Auto) 5.2 (2.6-8.5) % Eos % (Auto) 1.1 (0-4.4) % Baso % (Auto) 0.4 (0.2-1.2) % Lymph # (Auto) 1.45 (0.9-3.2) K/mm3 [place] # (Auto) 0.4 (0.1-0.6) K/mm3 Eos # (Auto) 0.1 (0-0.3) K/mm3 Baso # (Auto) 0.0 (0.0-0.1) K/mm3 Abs Immat Gran (auto) 0.01 (0.00-0.031) K/mm3 Absolute Neuts (auto) 6.3 (1.3-6.7) K/mm3 Absolute Nucleated RBC 0.000 (0.0-0.012) K/mm3 Nucleated RBC % 0.0 (0.0-0.2) % Sodium 140 (137-145) mmol/L Potassium 3.7 (3.4-5.0) mmol/L Chloride 107 (98-107) mmol/L Carbon Dioxide 26 (22-30) mmol/L Anion Gap 7 (4-12) mmol/L BUN 11 (7-17) mg/dL Creatinine 0.70 (0.7-1.0) mg/dL Estim Creat Clear Calc 98 ml/min Estimated GFR > 60 (59 - ) Glucose 93 (65-110) mg/dL Calcium 9.6 (8.4-10.2) mg/dL Total Bilirubin 0.7 (0.2-1.3) mg/dL AST 23 (14-36) U/L ALT 17 (6-35) U/L Alkaline Phosphatase 72 (38-126) U/L Total Protein 8.0 (6.3-8.2) g/dL Albumin 4.5 (3.5-5.1) g/dL Lipase 82 (23-300) U/L Urine Color Yellow (Yellow) Urine Appearance Clear (Clear) Urine pH 6.5 (5.0-9.0) Ur Specific [place] 1.008 (1.001-1.035) Urine Protein Negative (Negative) mg/dL Urine Glucose (UA) Negative (Negative) mg/dL Urine Ketones Negative (Negative) mg/dL Ur Blood (Man) Negative (Negative) Urine Nitrate Negative (Negative) Urine Bilirubin Negative (Negative) Urine Urobilinogen 0.2 (<2.0) mg/dL Add Ur Microanalysis Reviewed Leukocyte Esterase Rfl 1+ H (Negative) SPENCER/UL Urine RBC 0-2 (0-2) /hpf Urine WBC 0-5 (0-3) /hpf Ur Squamous Epith Cells None seen (Few) /hpf Urine Bacteria None seen /hpf Urine Casts 0-2 POC Urine HCG, Qual Negative (Negative) Imaging Data Radiologist's impression: ITS Impressions Pelvic/Transvag US 07/04/24 15:20 IMPRESSION: Normal pelvic sonogram findings. Abdomen/Pelvis CT 07/04/24 15:34 IMPRESSION: Mild esophagitis/gastritis. Bladder wall thickening may be secondary to cystitis or incomplete distention. Discharge Plan Discharge Clinical Impression: Pelvic pain Patient Disposition: Elopement After Seen by Prov Condition: Stable Instructions: Antibiotic Form Patient Language: Faroese Prescriptions: No Action venlafaxine 75 mg capsule,extended release 24hr 75 mg PO DAILY propranolol 80 mg capsule,extended release 24 hr 80 mg PO DAILY hydrocortisone [Anusol-HC] 2.5 % cream with perineal applicator 1 applic PA DAILY PRN (Reason: pain) Qty: 30 0RF lidocaine 5 % cream 1 applic topical TID PRN (Reason: pain) Qty: 15 0RF Follow-up/Referrals: Kimberli,MD Betina [Primary Care Provider] -
[2024-07-04 14:22] LABS: Basophils Percent Auto 0.4 % (0.2-1.2); Eosinophils Absolute Auto 0.1 K/mm3 (0-0.3); Eosinophils Percent Auto 1.1 % (0-4.4); Hematocrit 40.8 % (37.0-47.0); Hemoglobin 13.4 g/dL (12.0-15.0); Immature Granulocyte Absolute 0.01 K/mm3 (0.00-0.031); Immature Granulocyte Percent A 0.1 % (0-0.5); Lymphocytes Absolute Auto 1.45 K/mm3 (0.9-3.2); Lymphocytes Percent Auto 17.4 % (18.3-44.2); Mean Corpuscular HGB Conc 32.8 g/dl (32-36); Mean Corpuscular Hemoglobin 29.8 pg (26-34); Mean Corpuscular Volume 90.7 fl (80-100); Mean Platelet Volume 8.4 fl (7.4-10.4); Monocytes Absolute Auto 0.4 K/mm3 (0.1-0.6); Monocytes Percent Auto 5.2 % (2.6-8.5); Neutrophils Absolute Auto 6.3 K/mm3 (1.3-6.7); Neutrophils Percent Auto 75.8 % (45.5-73.1); Platelet Count Result 385 k/mm3 (150-375); Red Cell Distribution Width 13.8 % (11.5-14.5); White Blood Count 8.3 K/mm3 (4.5-10.0)
[2024-07-04 14:32] LABS: Alanine Aminotransferase 17 U/L (6-35); Albumin Level 4.5 g/dL (3.5-5.1); Alkaline Phosphatase 72 U/L (38-126); Anion Gap 7 mmol/L (4-12); Aspartate Amino Transferase 23 U/L (14-36); Bilirubin,Total 0.7 mg/dL (0.2-1.3); Blood Urea Nitrogen 11 mg/dL (7-17); Calcium 9.6 mg/dL (8.4-10.2); Carbon Dioxide 26 mmol/L (22-30); Chloride 107 mmol/L (98-107); Estimated CRCL calculation 98 ml/min; Estimated Glomerular Filt Rate > 60; Glucose 93 mg/dL (65-110); Lipase 82 U/L (23-300); Potassium 3.7 mmol/L (3.4-5.0); Sodium 140 mmol/L (137-145)
[2024-07-04 14:34] LABS: Add Urine Microscopic? YES; Appearance Urine Clear (Clear); Bacteria Urine None Seen /hpf; Bilirubin Urine Negative (Negative); Blood Urine Negative (Negative); Color Urine Yellow (Yellow); Glucose Urine UA Negative (Negative); Ketones Urine Negative (Negative); Leukocyte Esterase Ur 1+ LEU/UL (Negative); Need Manual Microscopic Reviewed; Nitrate Urine Negative (Negative); Non Pathogenic Casts 0-2; Protein Urine Negative (Negative); RBC Urine 0-2 /hpf (0-2); Specific Grav Ur 1.008 (1.001-1.035); Squamous Epithelial Cell Urine None Seen /hpf (Few); Urobilinogen Urine 0.2 mg/dL (<2.0); WBC Urine 0-5 /hpf (0-3); pH Urine 6.5 (5.0-9.0)
[2024-07-04 14:40] LABS: BEDSIDEPREGUCG Negative (Negative)
== END 2024-07-04 17:00 | disposition left against medical advice (07) ==
PROVIDERS: Emergency Provider Physician Assistant; PCP Internal Medicine
DX: R10.2 Pelvic and perineal pain (principal); K21.9 Gastro-esophageal reflux disease without esophagitis; F32.A Depression, unspecified
CPT/HCPCS: 36415; 74177; 76830; 76856; 80053; 81001; 81025; 83690; 85025; 87086; 99284; Q9967

== ENCOUNTER 2024-08-15 19:25 | Emergency (ER) | payer OTHER, SELFPAY ==
--- OUTSIDE RECORDS SUMMARY | 2024-08-15 19:28 | XMS_ITS | Encounter Summary ---
Author Organization [facility] Address [facility] [place] [address] Care Team Providers Care Highway Engineering Teacher Name Role Phone Betina Ag MD Primary Care Provider [phone] Sherry Martinez PA-C Unavailable [phone] Encounter Details Date Type Department Care Team (Latest Contact Info) Description 01/04/2021 Greenlight Paymentst Message Enc [facility] Medical Group Multispecialty Care - [address] [place], [place] [id number] Betina Ag MD [address] [place] [address] [address] [place] [address] RE: Test Results Social History Tobacco Use Types Packs/Day Years Used Date Smoking Tobacco: Former Cigarettes Q uit: 2017 Smokeless Tobacco: Former Quit: 01/03/2017 Comments:counseled by Dr Leola celestin; 1 cigarette per day. Alcohol Use Standard Drinks/Week Comments Not Currently 0 (1 standard drink = 0.6 oz pur e alcohol) PHQ-2 Answer Date Recorded PHQ-2 Score - If the patient scores above 3, please move on to questions 3-9 0 01/03/2021 Comments Yes Sex and Gender Information Value Date Recorded Sex Assigned at Not on file Legal Sex Female 7:17 PM CDT Gender Identity Not on file Sexual Orientation Not on file COVID-19 Exposure Response Date Recorded In the last month, have you been in contact with someone who was confirmed or suspected to have Coronavirus / COVID-19? No / Unsure 01/03/2021 10:45 AM CDT documented as of this encounter Plan of Treatment Not on file documented as of this encounter Visit Diagnoses Not on filedocumented in this encounter Additional Health Concerns Infection Onset Date Last Indicated Resolved Time COVID-19 Rule Out 03/10/2024 03/10/2024 03/10/2024 10:58 AM CDT COVID-19 Confirmed 03/10/2024 03/10/2024 12:32 AM CDT Assessment Noted Time PHQ-9 Depression Total Score: 3 01/04/20 21 11:47 AM CDT documented as of this encounter Care Teams Highway Engineering Teacher Relationship Specialty Start Date End Date Beitna Ag MD [address] [address] PCP - General INTERNAL MEDICINE 01/03/21 Sherry Martinez, PAPilyC [address] [place] [address] Referring Physician Physician Coin Purse Assembler Medical 01/04/24 documented as of this encounter
--- OUTSIDE RECORDS SUMMARY | 2024-08-15 19:28 | XMS_ITS | Encounter Summary ---
Author Organization [facility] Address [address] [place] [address] Care Team Providers Care Travel Rn Or Name Role Phone Betina Ag MD Primary Care Provider [phone] Sherry Martinez PA-C Unavailable Encounter Details Date Type Department Care Team (Late st Contact Info) Description 07/20/2022 MyChart Message Enc [facility] Medical Group Multispecialty Care - [address] [place] [address] [place] [address] [place] [address] [address] [place] [address] Ultrasound Social History Tobacco Use Types Packs/Day Years Used Date Smoking Tobacco: Former Cigarettes Q uit: 07/05/2015 Smokeless Tobacco: Former Quit: 01/03/2017 Comments:counseled by Dr Leoal celestin Alcohol Use Standard Drinks/Week Comments Not Currently 0 (1 standard drink = 0.6 oz pur e alcohol) PHQ-2 Answer Date Recorded PHQ-2 Score - If the patient scores above 3, please move on to questions 3-9 0 01/15/2022 Comments No Sex and Gender Information Value Date Recorded Sex Assigned at Not on file Legal Sex Female 7:17 PM CDT Gender Identity Not on file Sexual Orientation Not on file COVID-19 Exposure Response Date Recorded In the last 10 days, have yo u been in contact with someone who was confirmed or suspected to have Coronavirus/COVID-19? No / Unsure 07/21/2022 8:09 AM CHURCH SECRETARY documented as of this encounter Plan of Treatment Not on file documented as of this encounter Visit Diagnoses Not on filedocumented in this encounter Additional Health Concerns Infection Onset Date Last Indicated Resolved Time COVID-19 Rule Out 03/10/2024 03/10/2024 03/10/2024 10:58 AM CDT COVID-19 Confirmed 03/10/2024 03/10/2024 12:32 AM CDT Assessment Noted Time PHQ-9 Depression Total Score: 1 07/28/19 22 10:30 AM CHURCH SECRETARY documented as of this encounter Care Teams Travel Rn Or Relationship Specialty Start Date End Date Betina Ag MD [address] [facility] [address] [place] [address] PCP - General INTERNAL MEDICINE 01/03/21 Sherry Martinez, PAPilyC [address] [place] [address] Referring Physician Physician Materials Engineering Technician Medical 01/04/24 documented as of this encounter
--- OUTSIDE RECORDS SUMMARY | 2024-08-15 19:28 | XMS_ITS | Encounter Summary ---
Author Organization [facility] Address [facility] [place] [address] Care Team Providers Care Electrotherapist Name Role Phone Betina Ag MD Primary Care Provider [phone] Sherry Martinez PA-C Unavailable [phone] Encounter Details Date Type Department Care Team (Late st Contact Info) Description 01/04/2021 Ecozen Solutionst Message Enc [facility] Medical Group Multispecialty Care - [address] [place], [place] [id number] Betina Ag MD [address] [place] [address] [address] [place] [address] Test Results Social History Tobacco Use Types [...] documented as of this encounter Care Teams Electrotherapist Relationship Specialty Start Date End Date Betina Ag MD [address] [address] PCP - General INTERNAL MEDICINE 01/03/21 Sherry Martinez, PAPilyC [address] [place] [address] Referring Physician Physician Scalper Operator Medical 01/04/24 documented as of this encounter
--- OUTSIDE RECORDS SUMMARY | 2024-08-15 19:28 | XMS_ITS | Encounter Summary ---
Author Organization [facility] Address [facility] [place] [address] Care Team Providers Care Director Of Midwifery/Staff Midwife Name Role Phone Betina Ag MD Primary Care Provider [phone] Sherry Martinez PA-C Unavailable [phone] Encounter Details Date Type Department Care Team (Late st Contact Info) Description 04/22/2022 If You Can Message Enc [facility] Multispecialty Care - [address] [place] [address] [employer], [facility] Provider Pa for Ct scan Social History Tobacco Use Types Packs/Day Years Used Date Smoking Tobacco: Former Cigarettes Q uit: 07/05/2015 Smokeless Tobacco: Former Quit: 01/03/2017 Comments:counseled by Dr Leola celestin Alcohol Use Standard Drinks/Week Comments Not [...] suspected to have Coronavirus/COVID-19? No / Unsure 04/21/2022 9:24 AM CDT documented as of this encounter [...] Total Score: 1 07/28/19 22 10:30 AM WORKFORCE DEVELOPMENT SPECIALIST documented as of this encounter Care Teams Director Of Midwifery/Staff Midwife Relationship Specialty Start Date End Date Betina Ag MD [address] [address] PCP - General INTERNAL MEDICINE 01/03/21 Sherry Martinez PA-C [facility] [place] [address] Referring Physician Physician Home Improvement Advisor Medical 01/04/24 documented as of this encounter
--- OUTSIDE RECORDS SUMMARY | 2024-08-15 19:28 | XMS_ITS | Encounter Summary ---
Author Organization [facility] Address [facility] [place] [address] Care Team Providers Care Property Preservation Specialist Name Role Phone Betina Ag MD Primary Care Provider [phone] Sherry Martinez PA-C Unavailable [phone] Encounter Details Date Type Department Care Team (Late st Contact Info) Description 11/14/2023 [employer] Message Enc [facility] Medical Group Multispecialty Care - [address] [address] [address] [place], [place] [id number] Betina Ag MD [address] [place] [address] [address] [place] [address] R hip pain Social History Tobacco Use Types Packs/Day Years Used Date Smoking Tobacco: Former Cigarettes Q uit: 07/05/2015 Smokeless Tobacco: Former Quit: 01/03/2017 Comments:counseled by Dr Leola celestin Alcohol Use Standard Drinks/Week Comments Yes 3.3 (1 standard drink = 0.6 oz p ure alcohol) PHQ-2 Answer Date Recorded Patient Health Questionnaire-2 Score 1 10/19/2023 Comments No Sex and Gender Information Value Date Recorded Sex Assigned at Not on file Legal Sex Female 7:17 PM CDT Gender Identity Not on file Sexual Orientation Not on file documented as of this encounter Plan of Treatment Not on file documented as of this encounter Visit Diagnoses Not on filedocumented in this encounter Additional Health Concerns Infection Onset Date Last Indicated Resolved Time COVID-19 Rule Out 03/10/2024 03/10/2024 03/10/2024 10:58 AM CDT COVID-19 Confirmed 03/10/2024 03/10/2024 12:32 AM CDT Assessment Noted Time PHQ-9 Depression Total Score: 14 024 2:02 PM CHIP TUNER documented as of this encounter Care Teams Property Preservation Specialist Relationship Specialty Start Date End Date Betina Ag MD [address] [address] PCP - General INTERNAL MEDICINE 01/03/21 Sherry Martinez PAPilyC [address] [place] [address] Referring Physician Physician Corporate Legal Intern Medical 01/04/24 documented as of this encounter
--- OUTSIDE RECORDS SUMMARY | 2024-08-15 19:28 | XMS_ITS | Clinical Summary ---
Author Organization [facility] Address [address] [place] [address] Phone Care Team Providers Care Farm Equipment Technician Name Role Phone Mini, Katerina PARK CNP Primary Care Provider [phone] Social History Tobacco Use Types Packs/Day Years Used Date Smoking Tobacco: Never Assessed Comments Unknown Sex and Gender Information Value Date Recorded Sex Assigned at Not on file Legal Sex Female 2:47 PM CDT Gender Identity Not on file Sexual Orientation Not on file Plan of Treatment Health Maintenance Due Date Last Done Comments Hepatitis C Virus (HCV) Screening 1989 Hepatitis B Immunization (1 of 3 - 19+ 3-dose series) 2008 Pap Smear 2010 Cervical Cancer Screening (CCS) 12/17/2019 HPV/Cotest 12/17/2019 Influenza Immunization (#1) 2024 07/07/2015 SARS-COV-2 Immunization ( season) 2024 06/11/2021, 08/07/2020, 07/10/2020 Respiratory Syncytial Virus (RSV) Immunization (Adult) (1 - 1-dose 75+ series) 2064 DTaP/Tdap/Td Immunization Discontinued 05/07/2016 TdaP Immunization Completed 05/07/2016 Meningococcal Immunization (ACWY) Aged Out No longer eligible based on patient's age to complete this topic Pneumococcal Immunization Combined Aged Out No longer eligible based on patient's age to complete this topic Rotavirus Immunization Aged Out No lo nger eligible based on patient's age to complete this topic Insurance MEDICAID [place] Care Teams Farm Equipment Technician Relationship Specialty Start Date End Date Morse, XAVIER Borges, [place] [place] [address] PCP - General Family Medicine 03/10/19
--- OUTSIDE RECORDS SUMMARY | 2024-08-15 19:28 | XMS_ITS | Encounter Summary ---
Author Organization [facility] Address [facility] [place] [address] Care Team Providers Care Nuclear Equipment Test Engineer Name Role Phone Betina Ag MD Primary Care Provider [phone] Sherry Martinez PA-C Unavailable [phone] Encounter Details Date Type Department Care Team (Latest Contact Info) Description 01/14/2021 [employer] Message Enc [facility] Medical Group Multispecialty Care - [address] [address] [address] [place], [place] [id number] Betina Ag MD [address] [place] [address] [address] [place] [address] RE: appointment time Social History Tobacco Use Types Packs/Day Years [...] documented as of this encounter Care Teams Nuclear Equipment Test Engineer Relationship Specialty Start Date End Date Betina Ag MD [address] [address] PCP - General INTERNAL MEDICINE 01/03/21 Sherry Martinez, PAPilyC [address] [place] [address] Referring Physician Physician Fire Management Technician Medical 01/04/24 documented as of this encounter
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
--- OUTSIDE RECORDS SUMMARY | 2024-08-15 19:29 | XMS_ITS | Clinical Summary ---
Author Organization [facility] Address [address] [place] [address] Care Team Providers Care Cane Pusher Name Role Phone Betina Ag MD Primary Care Provider [phone] Sherry Martinez PA-C Unavailable [phone] Allergies No known active allergies Medications DULoxetine (CYMBALTA) 30 MG capsule TAKE 1 CAPSULE BY MOUTH DAILY FOR 1 WEEK THEN TAKE 2 CAPSULES BY MOUTH DAILY 09/28/19 24 Active LORazepam (ATIVAN) 0.5 MG tablet Take 1 tablet (0.5 mg total) by mouth daily. 09/28/19 24 Active Cholecalciferol (VITAMIN D3) 50 MCG (2000 UT) Cap CHOLECALCIFEROL (VITAMIN D3) 125 MCG (5,000 UNIT) TABLET 11/17/19 24 Active Etonogestrel-Et hinyl Estradiol (ENILLORING) 0.12-0.015 MG/24HR RING 1 EVERY 3 WEEKS DIRECTED, REMOVE FOR 1 WEEK Active propranolol (INDERAL) 20 MG tabletIndicatio ns:Anxiety,Palp itations Take 1 tablet (20 mg total) by mouth daily as needed. 90 tablet 1 06/23/20 24 Active omeprazole (PRILOSEC) 40 MG capsuleIndicati ons:Gastroesoph ageal reflux disease without esophagitis Take 1 capsule (40 mg total) by mouth daily. 90 capsule 1 06/23/20 24 Active fluticasone propionate (FLONASE) 50 MCG/ACT nasal sprayIndication s:Seasonal allergies INSTILL 2 SPRAYS IN EACH NOSTRIL QD FOR 10 DAYS 16 g 4 06/23/20 24 Active Active Problems Problem Noted Date Diagnosed Date Recurrent major depressive disorder 07/28/2021 Overview (07/28/2021): On sertraline, controlled. Follows closely with PCP. 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 Advised to engage in aerobic physical activity, if indicated to be safe by PCP, to assist with maintaining a healthy weight and BMI. Advised to follow up with PCP to address nutrition as needed to assist with reaching or maintaining a healthy weight and BMI. Follow up in: four months Gastro-esophageal reflux disease without esophag itis 06/19/2020 Overview (02/11/2022): K21.9 - Gastrointestinal - low Added by Interface Anxiety 11/14/2019 Overview (01/03/2021): Last Assessment & Plan: Condition: stable Patient reports that her anxiety is under control. No recent mental health visit. Follow up as needed with psychiatrist or PCP. Follow up in: three months Palpitations 11/14/2019 Overview (01/03/2021): Last Assessment & Plan: Condition: asymptomatic Patient is asymptomatic at this visit. Continue medications as prescribed and follow up with PCP/specialist as scheduled. Follow up in: six months Seasonal allergies 11/14/2019 Overview (01/03/2021): Last Assessment & Plan: Condition: stable Today patient reports congestion, sinus pressure and runny nose due to seasonal allergies. Take otc allergy medications to alleviate symptoms. Drink plenty of fluids. Follow up in: six months Fracture, metacarpal 09/24/2014 Resolved Problems Problem Noted Date Diagnosed Date Resolved Date Encounter for general adult medical examination without abnormal findings 08/27/2014 Overview (01/03/2021): Last Assessment & Plan: Condition: stable Patient gave verbal consent for this telehealth visit. Patient reports anxiety is under control. Follow up in: one year Encounters Date Type Department Care Team Description 07/04/2024 Scan ComplyMD INFO SRVCS Scanned, [facility] Lab (SCAN); Ultrasound (SCAN); CT (SCAN) 06/29/2024 Dream[employer] Software Message Enc [facility] [address] [place] [address] Betina Ag MD Physical 06/26/2024 7:30 AM AQUATICS LIFEGUARD Allied Health[facility] [place] [id number] [place] [address] Betina Ag MD Allied Health Visit (Patient present for labs) 06/26/2024 Orders Only [facility] [address] [place] [address] Kendal Ball MA 06/26/2024 Travel 06/23/2024 1:40 PM AQUATICS LIFEGUARD [facility] [place] [address] [place] [address] Betina Ag MD Physical 06/23/2024 Travel from Last 3 Months Immunizations Name Administration Dates Next Due Fluzone 6 Months+ Quad (0.5 mL Prefilled Syringe) 04/21/2022,03/27/2021 HPV GARDASIL 9-VALENT 06/23/2024,03/01/2024,12/04 Hepatitis B Vac Recomb Adj 2 0 Mcg/0.5ml Im Sosy 03/29/2023 Influenza (Generic) 04/04/2019 Influenza Adult (Generic) 03/14/2024,,07/07/2015, 015,03/21/2013 MMR (MMRII) 06/29/2021 MODERNA COVID-19 (12+) MRNA, LNP-S, PF, 100 MCG/ 0.5 ML DOSE 08/07/2020,07/10/2020 PFIZER COVID-19 (12+) MRNA, LNP-S, PF, VERO-SUCROSE, 30 MCG/0.3 ML (COMIRNATY) 03/29/2023 Tdap (Generic) 05/07/2016 Family History Medical History Relation Comments Hypertension Brother Hypertension Maternal Grandmother diverticulosis Maternal Grandmother Alcohol Abuse Mother Lupus Mother Relation Status Comments Brother Alive Father Alive Maternal Grandfather Maternal Grandmother Alive Mother Alive Paternal Grandfather Alive Paternal Grandmother Social History Tobacco Use Types Packs/Day Years Used Date Smoking Tobacco: Former Cigarettes Q uit: 07/05/2015 Smokeless Tobacco: Former Quit: 01/03/2017 Tobacco Cessation:Counseling Given: Yes Comments:counseled by Dr Ag Alcohol Use Standard Drinks/Week Comments Yes 3.3 (1 standard drink = 0.6 oz p ure alcohol) PHQ-2 Answer Date Recorded Patient Health Questionnaire-2 Score 1 06/23/2024 Comments No Sex and Gender Information Value Date Recorded Sex Assigned at Not on file Legal Sex Female 7:17 PM CDT Gender Identity Not on file Sexual Orientation Not on file Last Filed Vital Signs Vital Sign Reading Time Taken Comments Blood Pressure 113/77 03/10/2024 10:31 AM CDT Pulse 91 03/10/2024 10:31 AM CDT Temperature 36.3 C (97.3 F) 06/23/2024 2:12 PM AQUATICS LIFEGUARD Respiratory Rate 18 03/10/2024 10:3 1 AM CDT Oxygen Saturation 100% 03/10/2024 10: 31 AM CDT Inhaled Oxygen Concentration - - Weight 78.8 kg (173 lb 12.8 oz) 06/23/2024 2:12 PM AQUATICS LIFEGUARD Height 172.7 cm (5' 8 ) 06/23/2024 2:12 PM AQUATICS LIFEGUARD Body Mass Index 26.43 06/23/2024 2:12 PM AQUATICS LIFEGUARD Plan of Treatment Health Maintenance Due Date Last Done Comments Cervical Cancer Screening Pap with HPV Testing (Age 30 to 64) Every 5 Years 12/17/2019 Hepatitis B Vaccines (2 of 2 - CpG 2-dose series) 04/26/2023 03/29/2023 Cervical Cancer Screening Pap Smear (Age 30 to 64) Every 3 Years 08/12/2023 08/12/2020 Cervical Cancer Screening with HPV 08/12/2023 COVID-19 Vaccine ( season) 2024 03/29/2023, 06/11/2021, 08/07/2020, Additional history exists PHQ-2 (Physician [place]) 07/05/2024 06/23/2024 Annual Physical 06/23/2025 06/23/2024, 05/05, 01/15/2022, Additional history exists DTaP, Tdap and Td Vaccines (2 - Td or Tdap) 05/07/2026 05/07/2016 Hepatitis C Completed 01/15/2022, 01/03/2021 Influenza Adult Completed 03/14/2024, 03/06, 04/21/2022, Additional history exists HPV Vaccines Completed 06/23/2024, 02/03, 12/31/2023 Meningococcal B Vaccine Aged Out No l onger eligible based on patient's age to complete this topic Meningococcal Vaccine Aged Out No sangeeta sonu eligible based on patient's age to complete this topic Pneumococcal Vaccine: Pediatrics (0 to 5 Years) and At-Risk Patients (6 to 64 Years) Aged Out No longer eligible based on patient's age to complete this topic RSV Immunizations Under 20 Months Aged Out No longer eligible based on patient's age to complete this topic Procedures Procedure Name Priority Date/Time Associated Diagnosis Comments CT GENERIC 07/04/2024 OUTSIDE LAB (SCAN ORDER) 07/04/2024 OUTSIDE LAB (SCAN ORDER) 07/04/2024 OUTSIDE LAB (SCAN ORDER) 07/04/2024 OUTSIDE LAB (SCAN ORDER) 07/04/2024 OUTSIDE LAB (SCAN ORDER) 07/04/2024 ULTRASOUND GENERIC (SCAN ORDER) 07/04/2024 ULTRASOUND GENERIC (SCAN ORDER) 07/04/2024 CBC W/DIFF AUTOMATED Routine 06/26/2024 8:02 AM AQUATICS LIFEGUARD Annual physical exam General medical exam Drug therapy COMPREHENSIVE METABOLIC PANEL Routine 06/26/2024 8:02 AM AQUATICS LIFEGUARD Annual physical exam General medical exam Drug therapy LIPID PANEL Routine 06/26/2024 8:02 AM AQUATICS LIFEGUARD Annual physical exam General medical exam Screening for hyperlipidemia Drug therapy TSH W/REFLEX Routine 06/26/2024 8:02 AM AQUATICS LIFEGUARD Annual physical exam General medical exam Screening for hypothyroidism Drug therapy HEMOGLOBIN, GLYCOSYLATED Routine 06/26/2024 8:02 AM AQUATICS LIFEGUARD Annual physical exam General medical exam Screening for diabetes mellitus Drug therapy COLLECTION VENOUS BLOOD VENIPUNCTURE Routine 06/23/2024 2:32 PM AQUATICS LIFEGUARD Annual physical exam General medical exam Drug therapy URINALYSIS AUTO DIP Routine 06/23/2024 Annual physical exam General medical exam Drug therapy HEPATITIS C ANTIBODY Routine 01/15/2022 9:22 AM CDT Annual physical exam General medical exam OUTSIDE CYTOPATH CERV/VAG INTERPRET (PAP) (SCAN ORDER) 08/12/2020 from Last 3 Months or Most Recently Relevant to Health Maintenance Results * CT GENERIC (07/04/2024) Anatomical Region Laterality Modality Other 07/04/2024 us [facility] Scanned SCANNING Final Resu lt * OUTSIDE LAB (SCAN ORDER) (07/04/2024) Only the most recent of5 resultswithin the time period is included. 07/04/2024 us [facility] Scanned SCANNING Final Resu lt * ULTRASOUND GENERIC (SCAN ORDER) (07/04/2024) Only the most recent of2 resultswithin the time period is included. Anatomical Region Laterality Modality Other 07/04/2024 [facility] Scanned SCANNING Final Resu lt * TSH W/REFLEX (06/26/2024 8:02 AM AQUATICS LIFEGUARD) TSH 1.619 0.358 - 3.740 uIU/ML 06/26/2024 3:[address] [facility] 06/26/2024 8:02 AM AQUATICS LIFEGUARD Betina Ag MD LABORATORY Final Result Performing Organization Address [facility] Co de Phone Number [facility] [address] [place] [address], * (ABNORMAL) HEMOGLOBIN, GLYCOSYLATED (06/26/2024 8:02 AM AQUATICS LIFEGUARD) HGB A1C 5.4 4.5 - 6.2 % 06/26/2024 3:[address] [facility] ESTIMATED AVG GLUCOSE 108(H) 74 - 106 MG/DL 06/26/2024 3:[address] [facility] 06/26/2024 8:02 AM AQUATICS LIFEGUARD Betina Ag MD LABORATORY Final Result Performing Organization Address City/[facility]/ZIP Co de Phone Number [facility] [address] [place] [address], * (ABNORMAL) COMPREHENSIVE METABOLIC PANEL (06/26/2024 8:02 AM AQUATICS LIFEGUARD) SODIUM S/P/B 143 136 - 145 MMOL/L 06/26/2024 3:[address] [facility] POTASSIUM S/P/B 4.1 3.5 - 5.1 MMOL/L 06/26/2024 3:06 PM [facility] CHLORIDE S/P/B 106 98 - 107 MMOL/L 06/26/2024 3:06 PM [facility] CO2 30.4 21 - 32 MMOL/L 06/26/2024 3:06 PM [facility] GLUCOSE 93 70 - 99 MG/DL 06/26/2024 3:06 PM [facility] BUN 10 7 - 18 MG/DL 06/26/2024 3:06 PM [facility] CREATININE S/P/B 0.95 0.55 - 1.02 MG/DL 06/26/2024 3:06 PM [facility] CALCIUM S/P/B 9.0 8.4 - 10.5 MG/DL 06/26/2024 3:06 PM [facility] BILIRUBIN TOTAL S/P/B 0.5 0.2 - 1.0 MG/DL 06/26/2024 3:06 PM [facility] ALKALINE PHOSPHATASE S/P/B 69 37 - 98 U/L 06/26/2024 3:06 PM [facility] AST 12(L) 15 - 37 U/L 06/26/2024 3:06 PM [facility] ALT 17 14 - 59 U/L 06/26/2024 3:06 PM [facility] TOTAL PROTEIN S/P/B 7.5 6.4 - 8.2 G/DL 06/26/2024 3:06 PM [facility] ALBUMIN S/P/B 3.7 3.4 - 5.0 G/DL 06/26/2024 3:06 PM [facility] ANION GAP 6.6 5 - 15 MMOL/L 06/26/2024 3:06 PM [facility] Comment:REFERENCE RANGE NOT ESTABLISHED OSMOLALITY (CALC) 295 MOSM/KG 12/23/2 024 3:06 PM [facility] [place] Comment:REFERENCE RANGE NOT ESTABLISHED GFR ESTIMATE 81(L) >90 ML/MIN/1. 73 M2 06/26/2024 3:06 PM [facility] [place] GFR NOTES GFR REFERENCE S: 06/26/2024 3:06 PM [facility] [place] Comment: THE ESTIMATED GFR IS CALCULATED USING THE 2020 CKD-EPI EQUATION. THE FOLLOWING CATEGORIES FOR GRADING RENAL FUNCTION ARE RECOMMENDED BY THE INTERNATIONAL SOCIETY OF NEPHROLOGY (KDIGO 2012 CLINICAL PRACTICE GUIDELINE). G1,NORMAL OR HIGH: >89 ml/min/1.73 m2 G2,MILDLY DECREASED: 60-89 ml/min/1.73 m2 G3A,MILDLY TO MODERATELY DECREASED: 45-59 ml/min/1.73 m2 G3B,MODERATELY TO SEVERELY DECREASED: 30-44 ml/min/1.73 m2 G4,SEVERELY DECREASED: 15-29 ml/min/1.73 m2 G5,KIDNEY FAILURE: <15 ml/min/1.73 m2 06/26/2024 8:02 AM AQUATICS LIFEGUARD Betina Ag MD LABORATORY Final Result [facility] [address] [place] [address], * (ABNORMAL) LIPID PANEL (06/26/2024 8:02 AM AQUATICS LIFEGUARD) CHOLESTEROL 189 <200 MG/DL 06/26/2024 3:06 PM [facility] TRIGLYCERIDES 93 <150 MG/DL 06/26/2024 3:06 PM [facility] HDL 67 >40 MG/DL 06/26/2024 3:06 PM [facility] LDL-C 103(H) <100 MG/DL 06/26/2024 3:06 PM [facility] VLDL CALCULATION 19 5 - 28 MG/DL 06/26/2024 3:06 PM AQUATICS LIFEGUARD [facility] CHOL/HDL RATIO 2.8 0.0 - 4.0 06/26/2024 3:[address] [facility] LDL/HDL 1.5 0.41 - 2.13 06/26/2024 3:[address] [facility] NON HDL CHOLESTEROL 122 <140 MG/DL 06/26/2024 3:[address] [facility] 06/26/2024 8:02 AM AQUATICS LIFEGUARD Betina Ag MD LABORATORY Final Result [facility] [address] [place] [address], * (ABNORMAL) CBC W/DIFF AUTOMATED (06/26/2024 8:02 AM AQUATICS LIFEGUARD) WBC 4.76 4.00 - 10.80 x10'3/uL 06/26/2024 2:[address] [facility] RBC 4.21 4.10 - 5.40 x10'6/uL 06/26/2024 2:[address] [facility] HGB 12.5 12.0 - 16.0 G/DL 06/26/2024 2:57 PM [facility] HCT 37.3 36.0 - 47.0 % 06/26/2024 2:[address] [facility] MCV 88.6 78.0 - 100.0 FL 06/26/2024 2:[address] [facility] MCH 29.7 27.0 - 31.0 PG 06/26/2024 2:[address] [facility] MCHC 33.5 33.0 - 36.0 G/DL 06/26/2024 2:[address] [facility] RDW 13.6 11.5 - 14.5 % 06/26/2024 2:57 PM [facility] PLT 416(H) 150 - 350 x10'3/uL 06/26/2024 2:57 PM [facility] MPV 8.8 7.4 - 10.4 FL 06/26/2024 2:57 PM [facility] DIFFERENTIAL TYPE AUTOMATED DIFFERENTIAL 06/26/2024 2:59 PM [facility] NEUTROPHILS % 57.0 % 06/26/2024 2:59 PM [facility] LYMPHOCYTES % 34.2 % 06/26/2024 2:59 PM [facility] MONOCYTES % 6.3 % 06/26/2024 2:59 PM [facility] EOSINOPHILS % 2.1 % 06/26/2024 2:59 PM [facility] BASOPHILS % 0.4 % 06/26/2024 2:59 PM [facility] IMMATURE GRANS % 0.0 % 06/26/2024 2:59 PM [facility] ABS. NEUTROPHILS 2.71 1.60 - 8.30 x10'3/uL 06/26/2024 2:59 PM [facility] ABS. LYMPHOCYTES 1.63 0.80 - 4.70 x10'3/uL 06/26/2024 2:59 PM [facility] ABS. MONOCYTES 0.30 0.00 - 1.50 x10'3/uL 06/26/2024 2:59 PM [facility] ABS. EOSINOPHILS 0.10 0.00 - 0.40 x10'3/uL 06/26/2024 2:59 PM [facility] ABS. BASOPHILS 0.02 0.00 - 0.20 x10'3/uL 06/26/2024 2:59 PM [facility] ABS. IMMATURE GRANULOCYTES 0.00 0.00 - 0.03 x10'3/uL 06/26/2024 2:59 PM [facility] [place] 06/26/2024 8:02 AM AQUATICS LIFEGUARD Betina Ag MD LABORATORY Final Result Performing Organization Address City/[facility]/ZIP Co de Phone Number [facility] [address] [place] [address], [place] [phone] * (ABNORMAL) URINALYSIS AUTO DIP (06/23/2024) Pathologist [facility] COLOR (U) YELLOW YELLOW [address], [place] TRANSPARENCY CLEAR CLEAR [address], [place] GLUCOSE (U) NEGATIVE NEGATIVE MG/DL MG[address], [place] BILIRUBIN (U) NEGATIVE NEGATIVE MG-[address], [place] KETONES MG/DL (U) NEGATIVE NEGATIVE MG/DL [address], [place] SPECIFIC GRAVITY (U) 1.020 1.001 - 1.035 [address], [place] BLOOD (U) NEGATIVE NEGATIVE [address], [place] U PH 7.0 5.0 - 9.0 [address], [place] PROTEIN (U) TRACE(A) NEGATIVE mg/dL MG-[address], [place] UROBILINOGEN 1.0 0.2 - 1.0 EU/dL = mg/dL [address], [place] NITRITES NEGATIVE NEGATIVE MG/DL MG[address], [place] LEUKOCYTES (U) NEGATIVE NEGATIVE MG-[address], [place] URINE SPECIMEN OBTAINED BY CLEAN CATCH PROCEDURE / Unknown 06/23/2024 Betina Ag MD URINE ORDERABLES Final Result [address], [place] [address] [place] [address], * HEPATITIS C ANTIBODY (01/15/2022 9:22 AM CDT) HEPATITIS C AB NON-REACTI VE NON-REACT BRODY 01/15/2022 6:15 PM CDT [facility] Comment: ANTIBODIES TO HCV NOT DETECTED. DOES NOT EXCLUDE THE POSSIBILITY OF EXPOSURE TO HCV. 01/15/2022 9:22 AM CDT us Betina Ag MD LABORATORY Final Result [facility] [address] [place] [address], [id number] * OUTSIDE CYTOPATH CERV/VAG INTERPRET (PAP) (08/12/2020) 08/12/2020 Narrative 08/12/2020 Ordered by an unspecified provider. us Documents Scanned SCANNING Final Result from Last 3 Months or Most Recently Relevant to Health Maintenance Insurance [facility] Care Teams Cane Pusher Relationship Specialty Start Date End Date Betina Ag MD [address] [facility] [address] [place] [address] PCP - General INTERNAL MEDICINE 01/03/21 Sherry Martinez PA-C [facility] [place] [address] Referring Physician Physician Director [employer] 01/04/24
--- OUTSIDE RECORDS SUMMARY | 2024-08-15 19:29 | XMS_ITS | Encounter Summary ---
Author Organization [facility] Address [facility] [place] [address] Care Team Providers Care Materials Director Name Role Phone Betina Ag MD Primary Care Provider [phone] Sherry Martinez PA-C Unavailable [phone] Encounter Details Date Type Department Care Team (Latest Contact Info) Description 11/26/2021 TerraPasst Message Enc [facility] Medical Group Multispecialty Care - [address] [place] [address] Betina Ag MD [address] [place] [address] [address] [place] [address] Question regarding CBC W/DIFF AUTOMATED Social History Tobacco Use Types Packs/Day Years Used Date Smoking Tobacco: Former Cigarettes Q uit: 2017 Smokeless Tobacco: Former Quit: 01/03/2017 Comments:counseled by Dr Leola celestin Alcohol Use Standard Drinks/Week Comments Not Currently 0 (1 standard drink = 0.6 oz pur e alcohol) PHQ-2 Answer Date Recorded PHQ-2 Score - If the patient scores above 3, please move on to questions 3-9 0 07/28/2021 Comments No Sex and Gender Information Value Date Recorded Sex Assigned at Not on file Legal Sex Female 7:17 PM CDT Gender Identity Not on file Sexual Orientation Not on file COVID-19 Exposure Response Date Recorded In the last 10 days, have yo u been in contact with someone who was confirmed or suspected to have Coronavirus/COVID-19? No / Unsure 11/25/2021 11:13 AM CDT documented as of this encounter [...] Total Score: 1 07/28/19 22 10:30 AM BOILER FITTER documented as of this encounter Care Teams Materials Director Relationship Specialty Start Date End Date Betina Ag MD [address] [address] PCP - General INTERNAL MEDICINE 01/03/21 Sherry Martinez, PAPilyC [address] [place] [address] Referring Physician Physician Research Animal Attendant Medical 01/04/24 documented as of this encounter
--- OUTSIDE RECORDS SUMMARY | 2024-08-15 19:29 | XMS_ITS | Encounter Summary ---
Author Organization [facility] Address [address] [place] [address] Care Team Providers Care Roof Panel Hanger Name Role Phone Betina Ag MD Primary Care Provider [phone] Sherry Martinez PA-C Unavailable [phone] Encounter Details Date Type Department Care Team (Late st Contact Info) Description 02/25/2022 Farm[employer] Message Enc [facility] Medical Group Multispecialty Care - [address] [place] [address] [facility], [facility] Provider Lab Order Social History Tobacco Use Types Packs/Day Years [...] suspected to have Coronavirus/COVID-19? No / Unsure 02/11/2022 9:05 AM CDT documented as of this encounter [...] Total Score: 1 07/28/19 22 10:30 AM TANKROOM TENDER documented as of this encounter Care Teams Roof Panel Hanger Relationship Specialty Start Date End Date Betina Ag MD [address] [facility] [address] [place] [address] PCP - General INTERNAL MEDICINE 01/03/21 Sherry Martinez, PA-C [address] [place] [address] Referring Physician Physician Oncology Account Specialist Medical 01/04/24 documented as of this encounter
--- OUTSIDE RECORDS SUMMARY | 2024-08-15 19:29 | XMS_ITS | Encounter Summary ---
Author Organization [facility] Address [facility] [place] [address] Care Team Providers Care Spoke Maker Name Role Phone Betina Ag MD Primary Care Provider [phone] Sherry Martinez PA-C Unavailable [phone] Encounter Details Date Type Department Care Team (Late st Contact Info) Description 08/27/2023 InvestCloudt Message Enc [facility] Medical Group Multispecialty Care - [place] [address] [address] [place], [place] [address] Betina Ag MD [address] [place] [address] [address] [place] [address] Sick day Social History Tobacco Use Types Packs/Day Years Used Date Smoking Tobacco: Former Cigarettes Q uit: 07/05/2015 Smokeless Tobacco: Former Quit: 01/03/2017 Comments:counseled by Dr Leola celestin Alcohol Use Standard Drinks/Week Comments Yes 3.3 (1 standard drink = 0.6 oz p ure alcohol) PHQ-2 Answer Date Recorded Patient Health Questionnaire-2 Score 0 08/17/2023 Comments No Sex and Gender Information Value [...] Depression Total Score: 14 024 2:02 PM FLUMER documented as of this encounter Care Teams Spoke Maker Relationship Specialty Start Date End Date Betina Ag MD [address] [address] PCP - General INTERNAL MEDICINE 01/03/21 Sherry Martinez, PAPilyC [address] [place] [address] Referring Physician Physician Boat Loader Medical 01/04/24 documented as of this encounter
--- OUTSIDE RECORDS SUMMARY | 2024-08-15 19:29 | XMS_ITS | Encounter Summary ---
Author Organization [facility] Address [facility] [place] [address] Care Team Providers Care Executive Administrative Asst Name Role Phone Betina Ag MD Primary Care Provider [phone] Sherry Martinez PA-C Unavailable [phone] Encounter Details Date Type Department Care Team (Late st Contact Info) Description 02/24/2022 MyChart Message Enc [facility] Medical Group Multispecialty Care - [address] [place] [address] [place] [address] [place] [address] [address] [place] [address] Tb Social History Tobacco Use Types Packs/Day Years [...] Total Score: 1 07/28/19 22 10:30 AM FAMILY PSYCHOLOGIST documented as of this encounter Care Teams Executive Administrative Asst Relationship Specialty Start Date End Date Betina Ag MD [address] [address] PCP - General INTERNAL MEDICINE 01/03/21 Sherry Martinez, PAPilyC [address] [place] [address] Referring Physician Physician Physical Therapist Technician Medical 01/04/24 documented as of this encounter
--- OUTSIDE RECORDS SUMMARY | 2024-08-15 19:29 | XMS_ITS | Data Portability ---
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 Status 04/24/20 1 CLOSED Fetus Data First Name Last Name Admitted to NICU Weight (g) Sex Living Outcome Pediatric Complications Fetus ID Race Codes Race Delivery Type 3345.24 1 M Full Term [id number] Can Calculation Initial Can Date Initial Exam Date Initial Exam Provider Initial Ultrasound Date Last Menstrual Period Date Ultra Sound Weeks Gestation 0 Eighteen To Twenty Week Can Update Ultra Sound Date Fundal Height At Umbil Quickening Date Ultra Sound Latest Weeks Gestation Final Can Confirmed By Final Can Confirmed Date Final Can Date Ultra Sound Latest Days Gestation 0 0 Menstrual History Last Menstrual Date Menses Monthly On Bcp Conception Prior Menses Frequency Hcg Plus Date Menarche Onset Age Delivery Information Delivery Date Delivery Type Labor Anesthesia Weeks Gestation Incision Type Labor Labor Length Hrs Delivered By Post Complications Tubal Sterilization Discharge Date Comments 1 36.5 Discharge Information Feeding Method Contraceptive Method Maternal HG B and HCT Levels Ob Episode Information Episode Created Date Number of Fetuses Patient Bloodtype Patient rh Status Prepregnancy Weight lbs Domestic Partner Domestic Partner Phone Father Name Acid Blower Status 04/24/20 1 CLOSED Fetus Data First Name Last Name Admitted to NICU Weight (g) Sex Living Outcome Pediatric Complications Fetus ID Race Codes Race Delivery Type 2919.77 1704 M Full Term [id number] Can Calculation Initial Can Date Initial Exam Date Initial Exam Provider Initial Ultrasound Date Last Menstrual Period Date Ultra Sound Weeks Gestation 0 Eighteen To Twenty Week Can Update Ultra Sound Date Fundal Height At Umbil Quickening Date Ultra Sound Latest Weeks Gestation Final Can Confirmed By Final Can Confirmed Date Final Can Date Ultra Sound Latest Days Gestation 0 0 Menstrual History Last Menstrual Date Menses Monthly On Bcp Conception Prior Menses Frequency Hcg Plus Date Menarche Onset Age Delivery Information Delivery Date Delivery Type Labor Anesthesia Weeks Gestation Incision Type Labor Labor Length Hrs Delivered By Post Complications Tubal Sterilization Discharge Date Comments 0 38.4 Discharge Information Feeding Method Contraceptive Method Maternal HG B and HCT Levels Ob Episode Information Episode Created Date Number of Fetuses Patient Bloodtype Patient rh Status Prepregnancy Weight lbs Domestic Partner Domestic Partner Phone Father Name Acid Blower Status 04/24/20 24 1 CLOSED Fetus Data First Name Last Name Admitted to [facility] Weight (g) Sex Living Outcome Pediatric Complications Fetus ID Race Codes Race Delivery Type 3175.14 4 M Full Term [id number] Can Calculation Initial Can Date Initial Exam Date Initial Exam Provider Initial Ultrasound Date Last Menstrual Period Date Ultra Sound Weeks Gestation 0 Eighteen To Twenty Week Can Update Ultra Sound Date Fundal Height At Umbil Quickening Date Ultra Sound Latest Weeks Gestation Final Can Confirmed By Final Can Confirmed Date Final Can Date Ultra Sound Latest Days Gestation 0 0 Menstrual History Last Menstrual Date Menses Monthly On Bcp Conception Prior Menses Frequency Hcg Plus Date Menarche Onset Age Delivery Information Delivery Date Delivery Type Labor Anesthesia Weeks Gestation Incision Type Labor Labor Length Hrs Delivered By Post Complications Tubal Sterilization Discharge Date Comments 3 38.2 Discharge Information Feeding Method Contraceptive Method Maternal HG B and HCT Levels
--- OUTSIDE RECORDS SUMMARY | 2024-08-15 19:29 | XMS_ITS | Encounter Summary ---
Author Organization [facility] Address [facility] [place] [address] Care Team Providers Care Boats Renter Name Role Phone Betina Ag MD Primary Care Provider [phone] Sherry Martinez PA-C Unavailable [phone] Encounter Details Date Type Department Care Team (Late st Contact Info) Description 05/19/2023 Plexisoftt Message Enc [facility] Medical Group Multispecialty Care - [address] [address] [address] [place], [place] [id number] Betina Ag MD [address] [place] [address] [address] [place] [address] Note Social History Tobacco Use Types Packs/Day Years Used Date Smoking Tobacco: Former Cigarettes Q uit: 07/05/2015 Smokeless Tobacco: Former Quit: 01/03/2017 Comments:counseled by Dr Leola celestin Alcohol Use Standard Drinks/Week Comments Yes 3.3 (1 standard drink = 0.6 oz p ure alcohol) PHQ-2 Answer Date Recorded Patient Health Questionnaire-2 Score 1 05/18/2023 Comments No Sex and Gender Information Value [...] Noted Time PHQ-9 Depression Total Score: 1 05/18/20 23 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
--- OUTSIDE RECORDS SUMMARY | 2024-08-15 19:29 | XMS_ITS | Encounter Summary ---
Author Organization [facility] Address [facility] [place] [address] Care Team Providers Care Sql Engineer Name Role Phone Betina Ag MD Primary Care Provider [phone] Sherry Martinez PA-C Unavailable [phone] Encounter Details Date Type Department Care Team (Latest Contact Info) Description 11/17/2022 [place] [facility] Message Enc [facility] Medical Group Multispecialty Care - [address] [place], [place] [id number] Betina Ag MD [address] [place] [address] [address] [place] [address] Anxiety medications Social History Tobacco Use Types Packs/Day Years [...] Total Score: 1 07/28/19 22 10:30 AM CODING ANALYST documented as of this encounter Care Teams Sql Engineer Relationship Specialty Start Date End Date Betina Ag MD [address] [facility] [address] [place] [address] PCP - General INTERNAL MEDICINE 01/03/21 Sherry Martinez PAPilyC [facility] [place] [address] Referring Physician Physician Quality Assurance Qa Lab Analyst Medical 01/04/24 documented as of this encounter
--- OUTSIDE RECORDS SUMMARY | 2024-08-15 19:29 | XMS_ITS | Referral Summary ---
Author Organization [facility] Address [address] [place] [address] Care Team Providers Care Furnace Cleaner Name Role Phone Betina Ag MD Primary Care Provider [phone] Source Comments [facility],non-owned Affiliates and Associated Physician Practices is amultiple site organization consisting of ambulatory clinics and hospital sitesin [place], [place], [place] and [place]. This disclosure is being madepursuant to the Care Everywhere program and may not contain all information available regarding this patient. Last updated 18.[facility] Allergies No known active allergies Medications * Be aware that medications may not be up to date on this document. Alwaysverify current medications with the patient. Medication Sig Dispensed Refills Start Date End Date Status acetaminophen (TYLENOL) 500 MG capsule Take 2 (two) capsules by mouth every 6 hours as needed for Fever or Pain 56 capsule 06/29/2021 Active Cholecalciferol (Vitamin D-3) 125 MCG (5000 UT) Take 1 (one) tablet by mouth once daily 30 tablet 11/02/2023 Active DULoxetine (Cymbalta) 60 MG capsule Take 1 (one) capsule by mouth once daily 10/30/2023 Active LORazepam (Ativan) 0.5 MG tablet Take 1 (one) tablet by mouth once daily as needed Active Active Problems Problem Noted Date Diagnosed Date Tibial plateau fracture, right, closed, initial encounter 11/05/2023 Leakage of amniotic fluid 06/26/2021 Maternal iron deficiency ane veronique affecting in third trimester, antepartum 05/19/2021 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 No 06/27/2021 Is person blind or have serious difficulty seein g? No 06/27/2021 Does person have serious dif ficulty walking/climbing stairs? No 06/27/2021 Does person have difficulty dressing/bathing? No 06/27/2021 Does person have difficulty doing errands alone? No 06/27/2021 Cognitive Status Response Date of Assessm ent Does person have difficulty concentrating/remembering/making decisions? No 06/27/2021 Plan of Treatment Not on file Advance Directives * Full Code (Latest Code Status on File) Date Activated Date Inactivated Comments 06/26/2021 9:49 PM 06/29/2021 4:27 PM Care Teams Furnace Cleaner Relationship Specialty Start Date End Date Betina Ag MD [address] [facility] [address] [place], [place] [id number] PCP - General Internal Medicine 01/02/21
--- OUTSIDE RECORDS SUMMARY | 2024-08-15 19:29 | XMS_ITS | Encounter Summary ---
Author Organization [facility] Address [facility]6 [place] [address] Care Team Providers Care Horse Buyer Name Role Phone Betina Ag MD Primary Care Provider [phone] Sherry Martinez PA-C Unavailable [phone] Encounter Details Date Type Department Care Team (Late st Contact Info) Description 09/10/2023 Government Contract Professionalst Message Enc [facility] Medical Group Multispecialty Care - [address] [address] [address] [place], [place] [id number] Betina Ag MD [address] [place] [address] [address] [place] [address] Anxiety Social History Tobacco Use Types Packs/Day Years [...] Depression Total Score: 14 024 2:02 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
--- OUTSIDE RECORDS SUMMARY | 2024-08-15 19:29 | XMS_ITS | Encounter Summary ---
Author Organization [facility] Address [facility] [place] [address] Care Team Providers Care Skiver Box Toe Name Role Phone Betina Ag MD Primary Care Provider [phone] Sherry Martinez PA-C Unavailable [phone] Encounter Details Date Type Department Care Team (Latest Contact Info) Description 02/25/2022 BioLeap Message Enc [facility] Medical Group Multispecialty Care - [place] [address] [address] [address] [place], [place] [id number] Betina Ag MD [address] [place] [address] [address] [place] [address] Preceptor for nurse practitioner Social History Tobacco Use Types Packs/Day Years [...] Total Score: 1 07/28/19 22 10:30 AM BARK FITTER documented as of this encounter Care Teams Skiver Box Toe Relationship Specialty Start Date End Date Betina Ag MD [address] [address] PCP - General INTERNAL MEDICINE 01/03/21 Sherry Martinez, PAPilyC [facility]5 [place] [address] Referring Physician Physician Guest Experience Specialist Medical 01/04/24 documented as of this encounter
--- OUTSIDE RECORDS SUMMARY | 2024-08-15 19:29 | XMS_ITS | Encounter Summary ---
Author Organization [facility] Address [facility] [place] [address] Care Team Providers Care Integration Developer Name Role Phone Betina Ag MD Primary Care Provider [phone] Sherry Martinez PA-C Unavailable [phone] Encounter Details Date Type Department Care Team (Late st Contact Info) Description 05/09/2023 JRKICKZt Message Enc [facility] Medical Group Multispecialty Care - [address] [place], [place] [id number] Betina Ag MD [address] [place] [address] [address] [place] [address] Right calf pain Social History Tobacco Use Types Packs/Day Years Used Date Smoking Tobacco: Former Cigarettes Q uit: 07/05/2015 Smokeless Tobacco: Former Quit: 01/03/2017 Comments:counseled by Dr Leola celestin Alcohol Use Standard Drinks/Week Comments Not Currently 0 (1 standard drink = 0.6 oz pur e alcohol) PHQ-2 Answer Date Recorded Patient Health Questionnaire-2 Score 0 11/24/2022 Comments No Sex and Gender Information Value [...] Total Score: 1 07/28/19 22 10: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
--- OUTSIDE RECORDS SUMMARY | 2024-08-15 19:29 | XMS_ITS | Encounter Summary ---
Author Organization [facility] Address [address] [place] [address] Care Team Providers Care Tray Drier Operator Name Role Phone Betian Ag MD Primary Care Provider [phone] Sherry Martinez PA-C Unavailable [phone] Encounter Details Date Type Department Care Team (Late st Contact Info) Description 09/23/2023 Elucid Bioimaging Message Enc [facility] Medical Group Multispecialty Care [address] [place] [address] [employer], [facility] Provider lab order Social History Tobacco Use Types Packs/Day Years [...] Depression Total Score: 14 024 2: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
--- OUTSIDE RECORDS SUMMARY | 2024-08-15 19:29 | XMS_ITS | Encounter Summary ---
Author Organization [facility] Address [facility]6 [place] [address] Care Team Providers Care Administrative Nursing Supervisor Name Role Phone Betina Ag MD Primary Care Provider [phone] Sherry Martinez PA-C Unavailable [phone] Encounter Details Date Type Department Care Team (Late st Contact Info) Description 09/18/2023 PixSenset Message Enc [facility] Medical Group Multispecialty Care - [address] [address] [address] [place], [place] [phone] Betina Ag MD [address] [place] [address] [address] [place] [address] TB blood tests Social History Tobacco Use Types Packs/Day Years [...] Depression Total Score: 14 024 2:02 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
--- OUTSIDE RECORDS SUMMARY | 2024-08-15 19:29 | XMS_ITS | Encounter Summary ---
Author Organization [facility] Address [facility]6 [place] [address] Care Team Providers Care Information Consultant Name Role Phone Betina Ag MD Primary Care Provider [phone] Sherry Martinez PA-C Unavailable Encounter Details Date Type Department Care Team (Late st Contact Info) Description 09/07/2023 [place] Studiot Message Enc [facility] Medical Group Multispecialty Care - [address] [address] [address] [place], [place] [phone] Betina Ag MD [address] [place] [address] [address] [place] [address] Tremors Social History Tobacco Use Types Packs/Day Years [...] Depression Total Score: 14 024 2:02 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
--- OUTSIDE RECORDS SUMMARY | 2024-08-15 19:29 | XMS_ITS | Clinical Summary ---
Author Organization [facility] Healthcare Address [address] [place] [address] Care Team Providers Care Contact Acid Plant Operator Name Role Phone Betina Ag MD Primary Care Provider Allergies No known active allergies Medications busPIRone (BUSPAR) 5 mg tablet Take 1 tablet (5 mg total) by mouth 2 (two) times a day 06/27/2023 Active busPIRone (BUSPAR) 10 mg tablet Take 1 tablet (10 mg total) by mouth 2 (two) times a day 05/18/2023 Active propranoloL (INDERAL) 20 mg tablet 05/14/2022 Active etonogestreL-et hinyl estradioL (NUVARING, ELURYNG) 0.12-0.015 mg/24 hr vaginal ring Insert into the vagina Active DULoxetine DR (CYMBALTA) 60 mg capsule Take 1 capsule (60 mg total) by mouth daily 10/30/2023 Active metroNIDAZOLE (METROGEL) 0.75 % (37.5mg/5 gram) vaginal gelIndications: Bacterial Vaginosis Apply to vagina nightly for 5 nights. 70 g 07/04/2024 Active Active Problems Problem Noted Date Diagnosed Date Size of fetus inconsistent with dates in third t rimester 08/03/2023 Constipation 05/20/2022 Overview (08/03/2023): Last Assessment & Plan: Condition: eduardo Santiago is ecouraged to drink plenty of fluids. At least 2000 to 3000 ml/day if not contraindicated medically. Encouraged to increase fiber intake to at least 20g daily. Urge top increase physical activity and exercise. Encouraged a regular period for elimination. Follow up in: three months with PCP Muscle spasm 05/20/2022 Overview (08/03/2023): Last Assessment & Plan: Condition: stable Follow up in: three months with PCP Recurrent major depressive disorder 07/28/2021 Overview (08/03/2023): On sertraline, controlled. Follows closely with PCP. Leakage of amniotic fluid 06/26/2021 Anemia complicating , third trimester 1 07/19/2020 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 05/15/2021 Shortness of breath 05/08/2021 Gastro-esophageal reflux disease without esophag itis 06/19/2020 Overview (08/03/2023): Last Assessment & Plan: Condition: stable Reviewed use of antacid medication and/or diet modifications of decreasing caffeine, spicy foods, chocolate, and avoiding alcohol, tobacco, NSAIDs, and reducing citrus acids. Follow up in: three months with PCP K21.9 - Gastrointestinal - low Added by Interface Anxiety 11/14/2019 Overview (08/03/2023): Last Assessment & Plan: Condition: stable Gamaliel Santiago encouraged to use relaxation to help cope with anxiety. Relaxation can take place in seconds and does not require a quiet environment. When stressed use a 30 to 90 seconds (or more) time out including deep breathing. When deep breathing, try to visualize yourself in a peaceful place or doing something you enjoy. Stay active and spend time with others. Pt encouraged to plan ahead and make simple changes in their daily routine to help decrease anxiety. Follow up in: three months with PCP Last Assessment & Plan: Condition: stable Patient reports that her anxiety is under control. No recent mental health visit. Follow up as needed with psychiatrist or PCP. Follow up in: three months Assessment & Plan (08/13/2023 10:35 PM MANAGER TALENT): Uncontrolled anxiety with panic attacks. Taking buspar and zoloft Wants to restart effexor. Encourage pt to take the hydroxyzine for rescue. Follow up with provider in person. Palpitations 11/14/2019 Overview (08/03/2023): Last Assessment & Plan: Condition: stable Follow up in: three months with PCP Last Assessment & Plan: Condition: asymptomatic Patient is asymptomatic at this visit. Continue medications as prescribed and follow up with PCP/specialist as scheduled. Follow up in: six months Seasonal allergies 11/14/2019 Overview (08/03/2023): Last Assessment & Plan: Condition: stable Gamaliel Santiago is encouraged to encase mattress, pillows, and box spring in allergen- impermeable covers. Was bedding weekly in warm water with detergent. Reduce indoor humidity as much possible. Stored all food in sealed container, and do not store garbage and papers inside the home. Clean mold surfaces with dilute bleach solution if approve PCP. Consult professional highway engineering teacher to get way of cockroaches. Repair holes in william. Follow up in: three months with PCP Last Assessment & Plan: Condition: stable Today patient reports congestion, sinus pressure and runny nose due to seasonal allergies. Take otc allergy medications to alleviate symptoms. Drink plenty of fluids. Follow up in: six months Fracture, metacarpal 09/24/2014 Encounters Date Type Department Care Team Description 07/04/[address] [facility] Medical Group [facility]ient [facility] at [address] [phone] Esteban Jean-Baptiste NP 07/04/[address] [facility] Medical [facility] Con[facility]ient Care at [address] [id number] Esteban Jean-Baptiste NP 07/03/2024 9:30 AM MANAGER TALENT Lab [facility] Outpatient Lab at [address] [phone] Recurrent major depressive disorder (HCC) (Primary Dx) 07/03/2024 9:21 AM MANAGER TALENT - 07/03/2024 11:59 PM MANAGER TALENT Hospital Encounter [address] [address] Screening examination for STI; Vaginal itching Discharge Disposition: Discharge to home or self care 07/03/2024 9:00 AM MANAGER TALENT Office Visit [facility] Medical [facility] at [address] [phone] Esteban Jean-Baptiste NP Screening examination for STI (Primary Dx); Vaginal itching 07/03/2024 Patient Self-T[address] [facility] Health[facility]/ Physicians [address] [place] [address] Mychart, Generic Provider from Last 3 Months Medical History Medical History Date Comments Anxiety Social History Tobacco Use Types Packs/Day Years Used Date Smoking Tobacco: Never Smokeless Tobacco: Never Alcohol Use Standard Drinks/Week Comments Yes 0 (1 standard drink = 0.6 oz pur e alcohol) Comments Unknown Sex and Gender Information Value Date Recorded Sex Assigned at Not on file Legal Sex Female 3:14 AM MANAGER TALENT Gender Identity Not on file Sexual Orientation Not on file Obstetrics History Last Filed Vital Signs Vital Sign Reading Time Taken Comments Blood Pressure 118/70 07/03/2024 8:57 AM MANAGER TALENT Pulse 67 07/03/2024 8:57 AM MANAGER TALENT Temperature 36.8 C (98.2 F) 07/03/2024 8:57 AM MANAGER TALENT Respiratory Rate 20 07/03/2024 8:57 AM MANAGER TALENT Oxygen Saturation 98% 07/03/2024 8:57 AM MANAGER TALENT Inhaled Oxygen Concentration - - Weight 79.8 kg (176 lb) 07/03/2024 8:57 AM MANAGER TALENT Height 170.2 cm (5' 7 ) 07/03/2024 8:57 AM MANAGER TALENT Body Mass Index 27.57 07/03/2024 8:57 AM MANAGER TALENT Plan of Treatment Health Maintenance Due Date Last Done Comments Cervical Cancer Screening 1989 Depression Screening 1989 Varicella Vaccines (1 of 2 - 13+ 2-dose series) 2002 Regular Well Visit/Exam 18-64 12/17/2007 Covid-19 Vaccine ( season) 2024 08/07/2020, 07/10/2020 DTaP/Tdap/Td Vaccine (2 - Td or Tdap) 05/07/2026 05/07/2016 Influenza Vaccine Completed 03/14/2024, , 04/21/2022, Additional history exists Hepatitis C Screening Completed 07/03/2024 HPV Vaccines Aged Out No longer eligi ble based on patient's age to complete this topic Pneumococcal vaccine <65 Aged Out No longer eligible based on patient's age to complete this topic Procedures Procedure Name Priority Date/Time Associated Diagnosis Comments VAGINITIS PANEL Routine 07/03/2024 9:21 AM MANAGER TALENT Vaginal itching N. GONORRHOEAE/C. TRACHOMATIS AMPLIFICATION Routine 07/03/2024 9:21 AM MANAGER TALENT Screening examination for STI HSV 1 ANTIBODY, IGG Routine 07/03/2024 9 :21 AM MANAGER TALENT Screening examination for STI HSV 2 ANTIBODY, IGG Routine 07/03/2024 9 :21 AM MANAGER TALENT Screening examination for STI HEPATITIS PANEL, ACUTE Routine 9:21 AM MANAGER TALENT Screening examination for STI RPR Routine 07/03/2024 9:21 AM MANAGER TALENT Screening examination for STI HIV 1/2 ANTIBODY PLUS P24 ANTIGEN Routine 07/03/2024 9:21 AM MANAGER TALENT Screening examination for STI from Last 3 Months Results * N. gonorrhoeae/C. trachomatis Amplification Vaginal (07/03/2024 9:21 AM MANAGER TALENT) C. trachomatis Not Detected [facility] Comment:Testing performed by : [facility], [address] [place] [address]., [address] N. gonorrhoeae Not Detected [facility] Comment: Interpretive Data This assay detects Chlamydia trachomatis and Neisseria gonorrhoeae by nucleic acid amplification testing (NAAT). This assay has been cleared by the [place] Food and Drug administration. The performance characteristics of this test have been verified by the [facility] Molecular Infectious Disease laboratory. The performance characteristics of this test have not been evaluated in individuals less than 14 years of age. Current Interpretive Data was last revised on 2023. Testing performed by: [facility], [address] [place]., [address] Vaginal (None) 07/03/2024 9: 21 AM MANAGER TALENT 07/04/2024 10:03 AM MANAGER TALENT Esteban Jean-Baptiste NP LAB MICROBIOLOGY - [facility] LISE MARTINEZ Final Result [facility] [address] Department [place] [address] [facility] * (ABNORMAL) Vaginitis panel Vaginal (07/03/2024 9:21 AM MANAGER TALENT) Pathologist [facility] Florence DNA probe Not Detected Not Detected Comment:Testing performed by : [facility], [address] [place] [address]., [address] Gardnerella DNA probe Detected(A) Not Detected [facility] Comment:Testing performed by : [facility], [address] [place] [address]., [address] Trichomonas DNA probe Not Detected Not Detected [facility] Comment: Interpretive Data Testing performed by [facility] via Affirm VPIII Microbial Identification Test, a DNA probe test for use in the detection and identification of Florence species, Gardnerella vaginalis and Trichomonas vaginalis nucleic acid in vaginal fluid specimens from patients with symptoms of vaginitis/vaginosis. Negative results for these tests suggest the patient does not have candidiasis, bacterial vaginosis and/or trichomoniasis when consistent with clinical signs and symptoms. Current interpretive data was last revised on 2020. Testing performed by: [facility], [facility], [place]., [address] Vaginal 07/03/2024 9:21 AM MANAGER TALENT 07/04/2024 2:31 PM MANAGER TALENT Esteban Jean-Baptiste NP [facility] Final Result Performing Organization Address [facility] Co de Phone Number [facility] [address] [employer] [place] [address] * HIV 1/2 Antibody plus p24 Antigen Blood (07/03/2024 9:21 AM MANAGER TALENT) [facility] HIV 1/2 ab + p24 ag Nonreactive Nonreactive Comment: Nonreactive for HIV-1 antigen and HIV-1/HIV-2 antibodies. No laboratory evidence of HIV infection. If acute HIV infection is suspected, consider testing for HIV-1 RNA. Blood 07/03/2024 9:21 AM MANAGER TALENT 07/03/2024 4:05 PM MANAGER TALENT Esteban Jean-Baptiste NP [facility] MICROBIOLOGY [facility] Final Result Performing Organization Address [facility] de Phone Number [facility] [address] [facility] [employer] [place] [address] * Hepatitis panel, acute Blood (07/03/2024 9:21 AM MANAGER TALENT) Pathologist [facility] Hep A IgM Nonreactive Nonreactive Comment: Interpretive Data: If Hep A IgM Ab is reported as Equivocal, a new sample should be drawn in two weeks for testing. Current interpretive data was last revised on 19. Hep B core IgM Nonreactive Nonreactive [facility] Comment: Interpretive Data If HepB Core IgM Ab is reported as Equivocal, a new sample should be drawn in two weeks for testing. Current interpretive data was last revised on 19. Hep C Ab Nonreactive Nonreactive [facility] Comment: Interpretive Data Nonreactive: Antibodies to HCV not detected. Does NOT exclude the possibility of recent exposure to HCV. Equivocal: Equivocal for HCV antibodies. Supplemental molecular testing will be automatically performed to determine infection status in accordance with current CDC screening recommendations. Reactive: Positive for HCV antibodies. This may represent current or past HCV infection. Supplemental molecular testing will be automatically performed to determine current infection status in accordance with current CDC screening recommendations. Interpretive data was last revised on 2019. HepBsAg Nonreactive Nonreactive [facility] Blood 07/03/2024 9:21 AM MANAGER TALENT 07/03/2024 4:05 PM MANAGER TALENT Esteban Jean-Baptiste NP [facility] Final Result Performing Organization Address [facility] Co de Phone Number [facility] [address] [place] [address] * HSV 2 IgG Antibody Blood (07/03/2024 9:21 AM MANAGER TALENT) HSV 2 IgG Nonreactive Nonreactive Comment: Interpretive Data 1. Nonreactive: No detectable IgG antibody to HSV-2. 2. Equivocal: Presence or absence of detectable antibodies to HSV-2 cannot be determined and the test should be repeated. 3. Reactive: Indicates presence of detectable IgG antibody to HSV-2. Current interpretive data was last revised on 2022. Testing performed by: [facility], [address] [place] [address] Blood 07/03/2024 9:21 AM MANAGER TALENT 07/04/2024 9:50 AM MANAGER TALENT Esteban Jean-Baptiste NP [facility] MICROBIOLOGY GENERAL ORDE RABLES Final Result Performing Organization Address [facility] Co de Phone Number [facility] [address] [place] [address] * HSV 1 IgG Antibody Blood (07/03/2024 9:21 AM MANAGER TALENT) HSV 1 IgG Nonreactive Nonreactive Comment: Interpretive Data 1. Nonreactive: No detectable IgG antibody to HSV-1. 2. Equivocal: Presence or absence of detectable antibodies to HSV-1 cannot be determined and the test should be repeated. 3. Reactive: Indicates presence of detectable IgG antibody to HSV-1. Current interpretive data was last revised on 2016. Testing performed by: [facility], [address] [place] [address] Blood 07/03/2024 9:21 AM MANAGER TALENT 07/04/2024 9:50 AM MANAGER TALENT Esteban Jean-Baptiste NP LAB MICROBIOLOGY - [facility] Final Result [facility] [address] Department [place] [employer] [place] [address] * RPR Blood (07/03/2024 9:21 AM MANAGER TALENT) RPR Nonreactive Nonreactive Blood 07/03/2024 9:21 AM MANAGER TALENT 07/03/2024 4:05 PM MANAGER TALENT Esteban Jean-Baptiste NP LAB MICROBIOLOGY - [facility]AB[facility] Final Result Performing Organization Address City/[facility]/ZIP Co de Phone Number [facility]NATAL[facility] [address] Department [employer] [place] [address] from Last 3 Months Insurance [facility] Care Teams Contact Acid Plant Operator Relationship Specialty Start Date End Date Betina Ag MD [address] [place] [address] PCP - General Internal Medicine 07/15/23
--- OUTSIDE RECORDS SUMMARY | 2024-08-15 19:29 | XMS_ITS | Encounter Summary ---
Author Organization [facility] Address formerly [facility] [place] [address] Care Team Providers Care Thimble Press Operator Name Role Phone Betina Ag MD Primary Care Provider [phone] Sherry Martinez PA-C Unavailable [phone] Encounter Details Date Type Department Care Team (Late st Contact Info) Description 08/12/2023 Capricort Message Enc [facility] Medical Group Multispecialty Care - [place] [address] [address] [place], [place] [phone] Betina Ag MD [address] [place] [address] [address] [place] [address] HERMILA Social History Tobacco Use Types Packs/Day Years [...] Total Score: 1 05/18/20 23 3:49 PM REAL ESTATE 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
--- OUTSIDE RECORDS SUMMARY | 2024-08-15 19:29 | XMS_ITS | Encounter Summary ---
Author Organization [facility] Address [facility] [place] [address] Care Team Providers Care Business Center Attendant Name Role Phone Betina Ag MD Primary Care Provider [phone] Sherry Martinez PA-C Unavailable [phone] Encounter Details Date Type Department Care Team (Latest Contact Info) Description 09/15/2022 VOIP [place] Message Enc [facility] Medical Group Multispecialty Care - [place] [address] [address] [place], [place] [phone] Betina Ag MD [address] [place] [address] [address] [place] [address] DISTRICT SCOUT EXECUTIVE clinical hours Social History Tobacco Use Types Packs/Day Years [...] Total Score: 1 07/28/19 22 10:30 AM ARMATURE REWINDER documented as of this encounter Care Teams Business Center Attendant Relationship Specialty Start Date End Date Betina Ag MD [address] [facility] [address] [place] [address] PCP - General INTERNAL MEDICINE 01/03/21 Sherry Martinez PAPilyC [facility] [place] [address] Referring Physician Physician Tile Grader Medical 01/04/24 documented as of this encounter
--- OUTSIDE RECORDS SUMMARY | 2024-08-15 19:29 | XMS_ITS | Encounter Summary ---
Author Organization [facility] Address [address] [place] [address] Care Team Providers Care Neurosurgery Spine Physician Name Role Phone Betina Ag MD Primary Care Provider Sherry Martinez PA-C Unavailable [phone] Encounter Details Date Type Department Care Team (Late st Contact Info) Description 01/19/2022 WorkVoices Message Enc [facility] Medical Group Multispecialty Care - [address] [place] [address] [employer], [facility] Provider test results Social History Tobacco Use Types Packs/Day Years [...] suspected to have Coronavirus/COVID-19? No / Unsure 01/15/2022 8:42 AM CDT documented as of this encounter [...] Total Score: 1 07/28/19 22 10:30 AM ASSISTANT PRODUCT MANAGER documented as of this encounter Care Teams Neurosurgery Spine Physician Relationship Specialty Start Date End Date Betina Ag MD [address] [address] PCP - General INTERNAL MEDICINE 01/03/21 Sherry Martinez PA-C [address] [place] [address] Referring Physician Physician Varnish Supervisor Medical 01/04/24 documented as of this encounter
--- OUTSIDE RECORDS SUMMARY | 2024-08-15 19:29 | XMS_ITS | Encounter Summary ---
Author Organization [facility] Address [facility] [place] [address] Care Team Providers Care Technical Clerk Name Role Phone Betina Ag MD Primary Care Provider [phone] Sherry Martinez PA-C Unavailable [phone] Encounter Details Date Type Department Care Team (Late st Contact Info) Description 09/26/2023 VDPt Message Enc [facility] Medical Group Multispecialty Care - [place] [address] [address] [place], [place] [phone] Betina Ag MD [address] [place] [address] [address] [place] [address] Contraceptive Social History Tobacco Use Types Packs/Day Years [...] Depression Total Score: 14 024 2:

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
--- OUTSIDE RECORDS SUMMARY | 2024-08-15 19:29 | XMS_ITS | Encounter Summary ---
Author Organization [facility] Address [address] [place] [address] Care Team Providers Care Medical Center Director Name Role Phone Betina Ag MD Primary Care Provider [phone] Sherry Martinez PA-C Unavailable [phone] Encounter Details Date Type Department Care Team (Late st Contact Info) Description 06/29/2024 [employer] Message Enc [facility] Medical Group Multispecialty Care - [address] [address] [address] [place], [place] [id number] Betina Ag MD [address] [place] [address] [address] [place] [address] Physical Social History Tobacco Use Types Packs/Day Years [...] filedocumented in this encounter Additional Health Concerns Assessment Noted Time PHQ-9 Depression Total Score: 2 06/23/20 24 3:34 PM WARPER TENDER documented as of this encounter Care Teams Medical Center Director Relationship Specialty Start Date End Date Betina Ag MD [address] [address] PCP - General INTERNAL MEDICINE 01/03/21 Sherry Martinez PA-C [address] [facility] [place] [address] Referring Physician Physician Rubber Curer Medical 01/04/24 documented as of this encounter
--- OUTSIDE RECORDS SUMMARY | 2024-08-15 19:29 | XMS_ITS | Referral Summary ---
Author Organization [facility] Address [address] [place] [address] Care Team Providers Care Credit Clerk Name Role Phone Betina Ag MD Primary Care Provider [phone] Encounters Date Type Department Care Team Description 07/04/2024 Orders Only [facility] Medical Group Convenient Care at [address] [address] Esteban Jean-Baptiste NP 07/04/2024 Telephone [facility] Medical [facility] Convenient Care at [address] [address] Esteban Jean-Baptiste NP 07/03/2024 9:21 AM BOILER COVERER HELPER - 07/03/2024 11:59 PM BOILER COVERER HELPER Hospital Encounter [facility] [address] [place] [address] Screening examination for STI; Vaginal itching Discharge Disposition: Discharge to home or self care 07/03/2024 9:30 AM BOILER COVERER HELPER Lab [facility] Medical [facility] Outpatient Lab at [address] [address] Recurrent major depressive disorder (HCC) (Primary Dx) 07/03/2024 9:00 AM BOILER COVERER HELPER Office Visit [facility] Convenient Care at [address] [address] Esteban Jean-Baptiste NP Screening examination for STI (Primary Dx); Vaginal itching 07/03/2024 Patient Self-Triage [facility] HealthCare/ Physicians [address] [place] [address] Mychart, Generic Provider from Last 3 Months Allergies No known active allergies Medications busPIRone [...] & Plan: Condition: stable Gamaliel Santiago is ecouraged to drink plenty of [...] months Assessment & Plan (08/13/2023 10:35 PM BOILER COVERER HELPER): Uncontrolled anxiety with panic attacks. Taking buspar [...] bleach solution if approve PCP. Consult professional home restoration service supervisor to get way of cockroaches. Repair holes in william. Follow up in: three months with PCP Last Assessment & Plan: Condition: stable Today patient reports congestion, sinus pressure and runny nose due to seasonal allergies. Take otc allergy medications to alleviate symptoms. Drink plenty of fluids. Follow up in: six months Fracture, metacarpal 09/24/2014 Social History Tobacco Use Types Packs/Day Years Used Date Smoking Tobacco: Never Smokeless Tobacco: Never Alcohol Use Standard Drinks/Week Comments Yes 0 (1 standard drink = 0.6 oz pur e alcohol) Comments Unknown Sex and Gender Information Value Date Recorded Sex Assigned at Not on file Legal Sex Female 3:14 AM BOILER COVERER HELPER Gender Identity Not on file Sexual Orientation Not on file Last Filed Vital Signs Vital Sign Reading Time Taken Comments Blood Pressure 118/70 07/03/2024 8:57 AM BOILER COVERER HELPER Pulse 67 07/03/2024 8:57 AM BOILER COVERER HELPER Temperature 36.8 C (98.2 F) 07/03/2024 8:57 AM BOILER COVERER HELPER Respiratory Rate 20 07/03/2024 8:57 AM BOILER COVERER HELPER Oxygen Saturation 98% 07/03/2024 8:57 AM BOILER COVERER HELPER Inhaled Oxygen Concentration - - Weight 79.8 kg (176 lb) 07/03/2024 8:57 AM BOILER COVERER HELPER Height 170.2 cm (5' 7 ) 07/03/2024 8:57 AM BOILER COVERER HELPER Body Mass Index 27.57 07/03/2024 8:57 AM BOILER COVERER HELPER Plan of Treatment Not on file Procedures Procedure Name Priority Date/Time Associated Diagnosis Comments VAGINITIS PANEL Routine 07/03/2024 9:21 AM BOILER COVERER HELPER Vaginal itching N. GONORRHOEAE/C. TRACHOMATIS AMPLIFICATION Routine 07/03/2024 9:21 AM BOILER COVERER HELPER Screening examination for STI HSV 1 ANTIBODY, IGG Routine 07/03/2024 9 :21 AM BOILER COVERER HELPER Screening examination for STI HSV 2 ANTIBODY, IGG Routine 07/03/2024 9 :21 AM BOILER COVERER HELPER Screening examination for STI HEPATITIS PANEL, ACUTE Routine 9:21 AM BOILER COVERER HELPER Screening examination for STI RPR Routine 07/03/2024 9:21 AM BOILER COVERER HELPER Screening examination for STI HIV 1/2 ANTIBODY PLUS P24 ANTIGEN Routine 07/03/2024 9:21 AM BOILER COVERER HELPER Screening examination for STI from Last 3 Months Results * N. gonorrhoeae/C. trachomatis Amplification Vaginal (07/03/2024 9:21 AM BOILER COVERER HELPER) Pathologist [facility] C. trachomatis Not Detected [facility] Comment:Testing performed by : [facility], [address] [place] [address] N. gonorrhoeae Not Detected [facility] Comment: Interpretive Data This assay detects Chlamydia trachomatis and Neisseria gonorrhoeae by nucleic acid amplification testing (NAAT). This assay has been cleared by the [place] Food and Drug administration. The performance characteristics of this test have been verified by the [facility] Molecular Infectious Disease laboratory. The performance characteristics of this test have not been evaluated in individuals less than 14 years of age. Current Interpretive Data was last revised on 2023. Testing performed by: [facility], [address] [place]., [address] Vaginal (None) 07/03/2024 9: 21 AM BOILER COVERER HELPER 07/04/2024 10:03 AM BOILER COVERER HELPER Esteban Jean-Baptiste NP LAB MICROBIOLOGY - GENERAL LISE MARTINEZ Final Result Performing Organization Address [facility] Co de Phone Number XAVIER WATT [address] [place] [address] [facility] * (ABNORMAL) Vaginitis panel Vaginal (07/03/2024 9:21 AM BOILER COVERER HELPER) [facility] [place] DNA probe Not Detected Not Detected Comment:Testing performed by : [facility], [address] [place] [address]., [address] Gardnerella DNA probe Detected(A) Not Detected [facility] WATT Comment:Testing performed by : [facility], [address] [place] [address]., [address] Trichomonas DNA probe Not Detected Not Detected [facility] WATT Comment: Interpretive Data Testing performed by [facility] via [employer] VPIII Microbial Identification Test, a DNA probe [...] last revised on 2020. Testing performed by: [facility], [address] [place] [address]., [address] Vaginal 07/03/2024 9:21 AM BOILER COVERER HELPER 07/04/2024 2:31 PM BOILER COVERER HELPER Esteban Jean-Baptiste NP LAB MICROBIOLOGY - GENERAL LISE MARTINEZ Final Result Performing Organization Address City/[facility]/ZIP Co de Phone Number XAVIER WATT [address] [place] [address] * HIV 1/2 Antibody plus p24 Antigen Blood (07/03/2024 9:21 AM BOILER COVERER HELPER) [facility] HIV 1/2 ab + p24 ag Nonreactive Nonreactive Comment: Nonreactive for HIV-1 antigen and HIV-1/HIV-2 antibodies. No laboratory evidence of HIV infection. If acute HIV infection is suspected, consider testing for HIV-1 RNA. Blood 07/03/2024 9:21 AM BOILER COVERER HELPER 07/03/2024 4:05 PM BOILER COVERER HELPER Esteban Jean-Baptiste NP LAB [facility]OLOGY - [facility] Final Result Performing Organization Address [facility] Co de Phone Number XAVIER [address] [place] [address] * Hepatitis panel, acute Blood (07/03/2024 9:21 AM BOILER COVERER HELPER) Hep A IgM Nonreactive Nonreactive Comment: Interpretive Data: If Hep A IgM Ab is reported as Equivocal, a new sample should be drawn in two weeks for testing. Current interpretive data was last revised on 19. Hep B core IgM Nonreactive Nonreactive [facility] Comment: Interpretive Data If HepB Core IgM Ab is reported as Equivocal, a new sample should be drawn in two weeks for testing. Current interpretive data was last revised on 19. Hep C Ab Nonreactive Nonreactive [facility] Comment: Interpretive Data Nonreactive: Antibodies to HCV [...] last revised on 2019. HepBsAg Nonreactive Nonreactive [facility] Blood 07/03/2024 9:21 AM BOILER COVERER HELPER 07/03/2024 4:05 PM BOILER COVERER HELPER Esteban Jean-Baptiste NP LAB MICROBIOLOGY - GENERAL ORDShane JUAN Final Result Performing Organization Address [facility]/ZIP Co de Phone Number XAVIER WATT [address] [facility] [place] [address] * HSV 2 IgG Antibody Blood (07/03/2024 9:21 AM BOILER COVERER HELPER) Pathologist [facility] HSV 2 IgG Nonreactive Nonreactive Comment: Interpretive Data 1. Nonreactive: No detectable IgG antibody to HSV-2. 2. Equivocal: Presence or absence of detectable antibodies to HSV-2 cannot be determined and the test should be repeated. 3. Reactive: Indicates presence of detectable IgG antibody to HSV-2. Current interpretive data was last revised on 2022. Testing performed by: [facility], [address] [place] [address]., [address] Blood 07/03/2024 9:21 AM BOILER COVERER HELPER 07/04/2024 9:50 AM BOILER COVERER HELPER Esteban Jean-Baptiste NP [facility] MICROBIOLOGY [facility] Final Result Performing Organization Address [facility] de Phone Number [facility] [address] [place] [address] * HSV 1 IgG Antibody Blood (07/03/2024 9:21 AM BOILER COVERER HELPER) [facility] HSV 1 IgG Nonreactive Nonreactive Comment: Interpretive Data 1. Nonreactive: No detectable IgG antibody to HSV-1. 2. Equivocal: Presence or absence of detectable antibodies to HSV-1 cannot be determined and the test should be repeated. 3. Reactive: Indicates presence of detectable IgG antibody to HSV-1. Current interpretive data was last revised on 2016. Testing performed by: [facility], [address] [place] [address]., [address] Blood 07/03/2024 9:21 AM BOILER COVERER HELPER 07/04/2024 9:50 AM BOILER COVERER HELPER Esteban Jean-Baptiste NP [facility] MICROBIOLOGY [facility] Final Result Performing Organization Address City/[facility] Co de Phone Number [facility] [address] [facility] [place] [address] * RPR Blood (07/03/2024 9:21 AM BOILER COVERER HELPER) RPR Nonreactive Nonreactive Blood 07/03/2024 9:21 AM BOILER COVERER HELPER 07/03/2024 4:05 PM BOILER COVERER HELPER us Esteban Jean-Baptiste MEDIA PRODUCTION SUPPORT MANAGER LAB MICROBIOLOGY - GENERAL [place] Final [place] [address] [facility] Department [place] [address] from Last 3 Months Insurance [facility] Care Teams Credit Clerk Relationship Specialty Start Date End Date Betina Ag MD [address] [place] [address] PCP - General Internal Medicine 07/15/23
--- OUTSIDE RECORDS SUMMARY | 2024-08-15 19:29 | XMS_ITS | Encounter Summary ---
Author Organization [facility] Address [facility] [place] [address] Care Team Providers Care Hardwood Floor Installer Name Role Phone Betina Ag MD Primary Care Provider [phone] Sherry Martinez PA-C Unavailable [phone] Encounter Details Date Type Department Care Team (Latest Contact Info) Description 01/13/2021 [employer] Message Enc [facility] Medical Group Multispecialty Care - [address] [address] [address] [place], [place] [id number] Betina Ag MD [address] [place] [address] [address] [place] [address] RE: follow up visit Social History Tobacco Use Types Packs/Day Years [...] documented as of this encounter Care Teams Hardwood Floor Installer Relationship Specialty Start Date End Date Betina Ag MD [address] [address] PCP - General INTERNAL MEDICINE 01/03/21 Sherry Martinez, PAPilyC [facility] [place] [address] Referring Physician Physician Correctional Therapy Director Medical 01/04/24 documented as of this encounter
--- OUTSIDE RECORDS SUMMARY | 2024-08-15 19:29 | XMS_ITS | Clinical Summary ---
Author Organization [facility] Address [address] [place] [address] Phone Care Team Providers Care Talend Developer Name Role Phone Ashwini Ji MD Primary Care Provider [phone] Allergies No known active allergies Medications montelukast (SINGULAIR) 10 mg tablet Take 10 mg by mouth daily at bedtime. Active PARoxetine HCl (PAXIL) 30 mg tablet Take 30 mg by mouth daily. Active LORazepam (ATIVAN) 1 mg tablet Take 1 mg by mouth every 6 hours as needed for Anxiety. Active ondansetron (ZOFRAN) 4 mg Tablet Take 1 Tablet (4 mg) by mouth every 8 hours as needed for Nausea/Emes is. 15 Tablet None 03/03/2015 Active Social History Tobacco Use Types Packs/Day Years Used Date Smoking Tobacco: Former Cigarettes Q uit: 02/10/2015 Alcohol Use Standard Drinks/Week Comments Yes 0 (1 standard drink = 0.6 oz pur e alcohol) Comments No Sex and Gender Information Value Date Recorded Sex Assigned at Not on file Legal Sex Female 12:03 PM CDT Gender Identity Not on file Sexual Orientation Not on file Last Filed Vital Signs Vital Sign Reading Time Taken Comments Blood Pressure 91/58 03/03/2015 4:51 PM CDT Pulse 80 03/03/2015 3:30 PM CDT Temperature 36.8 C (98.3 F) 03/03/2015 12:12 PM CDT Respiratory Rate 15 03/03/2015 4:51 PM CDT Oxygen Saturation 99% 03/03/2015 3:30 PM CDT Inhaled Oxygen Concentration - - Weight 59 kg (130 lb) 03/03/2015 12:12 PM CDT Height 170.2 cm (5' 7 ) 03/03/2015 12:12 PM CDT Body Mass Index 20.36 03/03/2015 12:12 PM CDT Plan of Treatment Health Maintenance Due Date Last Done Comments DTAP/TDAP/TD VACCINES (1 - Tdap) 2008 HEPATITIS B VACCINES (1 of 3 - 19+ 3-dose series) 2008 CERVICAL CANCER SCREENING 12/17/2019 INFLUENZA VACCINE (#1) 2024 HPV VACCINES Aged Out No longer eligi ble based on patient's age to complete this topic PNEUMOCOCCAL VACCINE 0-64 YEARS Aged Out No longer eligible based on patient's age to complete this topic Insurance [place] [employer] Care Teams Talend Developer Relationship Specialty Start Date End Date Ashwini Ji MD PCP - General Internal Medicine 03/03/15
--- OUTSIDE RECORDS SUMMARY | 2024-08-15 19:29 | XMS_ITS | Encounter Summary ---
Author Organization [facility] Address [address] [place] [address] Care Team Providers Care Merchandise Flow Team Leader Name Role Phone Betina Ag MD Primary Care Provider Sherry Martinez PA-C Unavailable Encounter Details Date Type Department Care Team (Late st Contact Info) Description 08/14/2022 [employer] Message Enc [facility] Medical Group Multispecialty Care - [address] [place] [address] [employer], [facility] Provider MMR Social History Tobacco Use Types Packs/Day Years [...] Coronavirus/COVID-19? No / Unsure 07/21/2022 8:09 AM MAINTENANCE PLANNING CLERK documented as of this encounter Plan of Treatment Not on file documented as of this encounter Visit Diagnoses Not on filedocumented in this encounter Additional Health Concerns Infection Onset Date Last Indicated Resolved Time COVID-19 Rule Out 03/10/2024 03/10/2024 03/10/2024 10:58 AM CDT COVID-19 Confirmed 03/10/2024 03/10/2024 12:32 AM CDT Assessment Noted Time PHQ-9 Depression Total Score: 1 07/28/19 22 10:30 AM MAINTENANCE PLANNING CLERK documented as of this encounter Care Teams Merchandise Flow Team Leader Relationship Specialty Start Date End Date Betina Ag MD [address] [address] PCP - General INTERNAL MEDICINE 01/03/21 Sherry Martinez PA-C [address] [place] [address] Referring Physician Physician Burlap Spreader Medical 01/04/24 documented as of this encounter
--- OUTSIDE RECORDS SUMMARY | 2024-08-15 19:29 | XMS_ITS | Encounter Summary ---
Author Organization [facility] Address [address] [place] [address] Care Team Providers Care Software Design Manager Name Role Phone Betina Ag MD Primary Care Provider [phone] Sherry Martinez PA-C Unavailable [phone] Encounter Details Date Type Department Care Team (Late st Contact Info) Description 08/20/2022 MyChart Message Enc [facility] Medical Group Multispecialty Care - [address] [place] [address] [place] [address] [place] [address] [address] [place] [address] Anxiety Social History Tobacco Use [...] Coronavirus/COVID-19? No / Unsure 07/21/2022 8:09 AM MICROBIOLOGY SUPERVISOR documented as of this encounter Plan of Treatment Not on file documented as of this encounter Visit Diagnoses Not on filedocumented in this encounter Additional Health Concerns Infection Onset Date Last Indicated Resolved Time COVID-19 Rule Out 03/10/2024 03/10/2024 03/10/2024 10:58 AM CDT COVID-19 Confirmed 03/10/2024 03/10/2024 12:32 AM CDT Assessment Noted Time PHQ-9 Depression Total Score: 1 07/28/19 22 10:30 AM MICROBIOLOGY SUPERVISOR documented as of this encounter Care Teams Software Design Manager Relationship Specialty Start Date End Date Betina Ag MD [address] [facility] [address] [place] [address] PCP - General INTERNAL MEDICINE 01/03/21 Sherry Martinez, PAPilyC [address] [place] [address] Referring Physician Physician Location Manager Medical 01/04/24 documented as of this encounter
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
--- OUTSIDE RECORDS SUMMARY | 2024-08-15 19:29 | XMS_ITS | Clinical Summary ---
Author Organization [facility] [employer] Address [address] [place] [address] Care Team Providers Care Crane Chaser Name Role Phone Betina Ag MD Primary Care Provider [phone] Source Comments [facility] [employer],non-owned Affiliates and Associated Physician Practices is amultiple site organization consisting of ambulatory clinics and hospital sitesin [place], [place] and [place]. This disclosure is being madepursuant to the Care Everywhere program and may not contain all information available regarding this patient. Last updated 18.[facility] [employer] Allergies No known active allergies Medications * [...] rimester Immunizations Name Administration Dates Next Due Covid Moderna primary monova lent 12+ yr 0.5mL 08/07/2020,07/10/2020 [...] Mass Index 27.41 03/27/2024 2:07 PM CDT Plan of Treatment Health Maintenance Due Date Last Done Comments PAP SMEAR 1989 HIV SCREENING 2004 HEPATITIS C SCREENING 12/12/2007 DTAP/TDAP/TD VACCINES (1 - Tdap) 2008 HEPATITIS B VACCINE (1 of 3 - 19+ 3-dose series) 2008 COVID-19 VACCINE ( - season) 2024 06/11/2021, 08/07/2020, 07/10/2020 INFLUENZA VACCINE (#1) 2024 3, 04/21/2022, 03/27/2021, Additional history exists DEPRESSION SCREENING 07/05/2024 11/05/2023 ZOSTER VACCINE (1 of 2) 12/17/2039 HIB VACCINE Aged Out No longer eligi ble based on patient's age to complete this topic HPV VACCINE Aged Out No longer eligi ble based on patient's age to complete this topic MENINGOCOCCAL (Group B) VACCINE Aged Out No longer eligible based on patient's age to complete this topic MENINGOCOCCAL VACCINE Aged Out No sangeeta sonu eligible based on patient's age to complete this topic PNEUMOCOCCAL VACCINE Aged Out No long er eligible based on patient's age to complete this topic Advance Directives * Full Code (Latest Code Status on File) Date Activated Date Inactivated Comments 06/26/2021 9:49 PM 06/29/2021 4:27 PM Care Teams Crane Chaser Relationship Specialty Start Date End Date Betina Ag MD [address] [facility] [address] [place] [address] PCP - General Internal Medicine 01/02/21
--- OUTSIDE RECORDS SUMMARY | 2024-08-15 19:29 | XMS_ITS | Encounter Summary ---
Author Organization [facility] Address [facility] [place] [address] Care Team Providers Care Medical Malpractice Paralegal Name Role Phone Betina Ag MD Primary Care Provider [phone] Sherry Martinez PA-C Unavailable Encounter Details Date Type Department Care Team (Latest Contact Info) Description 07/30/2023 CO3 Venturest Message Enc [facility] Medical Group Multispecialty Care - [place] [address] [address] [place], [place] [id number] Betina Ag MD [address] [place] [address] [address] [place] [address] Clinical start time Social History Tobacco Use Types Packs/Day [...] Total Score: 1 05/18/20 23 3:49 PM PER DIEM PHYSICAL THERAPIST ASSISTANT documented as of this encounter Care Teams Medical Malpractice Paralegal Relationship Specialty Start Date End Date Betina Ag MD [address] [address] PCP - General INTERNAL MEDICINE 01/03/21 Sherry Martinez, PAPilyC [address] [place] [address] Referring Physician Physician Credentialing Specialist Medical 01/04/24 documented as of this encounter
--- OUTSIDE RECORDS SUMMARY | 2024-08-15 19:29 | XMS_ITS | Encounter Summary ---
Author Organization [facility] Address [facility] [place] [address] Care Team Providers Care Sample Checker Name Role Phone Betina Ag MD Primary Care Provider [phone] Sherry Martinez PA-C Unavailable [phone] Encounter Details Date Type Department Care Team (Late st Contact Info) Description 05/17/2021 Loot!t Message Enc [facility] Medical Group Multispecialty Care - [address] [place] [address] Betina Ag MD [address] [place] [address] [address] [place] [address] lab results Social History Tobacco Use Types Packs/Day [...] please move on to questions 3-9 0 03/27/2021 Comments Yes Sex and Gender Information Value Date Recorded Sex Assigned at Not on file Legal Sex Female 7:17 PM CDT Gender Identity Not on file Sexual Orientation Not on file COVID-19 Exposure Response Date Recorded In the last month, have you been in contact with someone who was confirmed or suspected to have Coronavirus / COVID-19? No / Unsure 05/15/2021 10:43 AM WORKFORCE MANAGER documented as of this encounter Plan of Treatment Not on file documented as of this encounter Visit Diagnoses Not on filedocumented in this encounter Additional Health Concerns Infection Onset Date Last Indicated Resolved Time COVID-19 Rule Out 03/10/2024 03/10/2024 03/10/2024 10:58 AM CDT COVID-19 Confirmed 03/10/2024 03/10/2024 12:32 AM CDT Assessment Noted Time PHQ-9 Depression Total Score: 2 03/27/20 21 11:15 AM CDT documented as of this encounter Care Teams Sample Checker Relationship Specialty Start Date End Date Betina Ag MD [address] [address] PCP - General INTERNAL MEDICINE 01/03/21 Sherry Martinez, PAPilyC [address] [place] [address] Referring Physician Physician [facility] 01/04/24 documented as of this encounter
--- OUTSIDE RECORDS SUMMARY | 2024-08-15 19:29 | XMS_ITS ---
Author Organization [facility] [employer] Address [address] [facility] [address] [place] [address] Care Team Providers Care Roller Stitcher Name Role Phone Betina Ag MD Primary Care Provider UnavailKelsie Frost Unavailable [phone] Stephanie Castillo Unavailable [phone] Medications Medication SIG (Take, Route, Frequency, Duration) Notes Start Date End Date Status DULoxetine HCl 60 MG 1 capsule in [...] 125 MCG (5,000 UNIT) TABLET *Reorder from [employer] for eRx and Interaction Alerts* 11/17/2023 Unknown Celecoxib 200 MG Oral 11/17/2023 Un known oxyCODONE-Acetaminophe n 5-325 MG Oral 11/17/2023 Unknown Methocarbamol 750 MG Oral 11/17/2023 Unknown Eliquis 2.5 MG Oral 11/17/2023 Unkn own Ofloxacin 0.30% Ophthalmic 11/17/2023 Un known Fluticasone Propionate Diskus 50 MCG/ACT Inhalation *Reorder from [employer] Laboratories[employer] for eRx and Interaction Alerts* 11/17/2023 Unknown Propranolol HCl 20 MG 1 tablet Oral once daily for 90 days As needed Active Social History Sex Assigned At : Social History Observation Description Sex Assigned At Female Encounters En[facility] [address] [place] [address] 07/19/2024 Stephanie Bush Plan Of Treatment Next Appt Details Provider Name:Stephanie Bush, 08/16/2024 09:00:00 AM, [address], [address], [place], [address], Provider Name:Kelsie Ontiveros, 09/05/2024 10:30:00 AM, [address], [address], [place], [address], Progress Notes * CHANO ABDULLAHI MDOB:[birth year] (33 yo F)Acc No.[id number]:07/19/2024 Patient: Pamela SCOOTERCHANO Pamela Provider: BIANCA GARDINERW :1990 A ge:33 Y S ex:Female Date:07/19/2024 Address:[address] [place] [address] Pcp:Betina Ag MD Data: * Chief Complaints: * * Medications: T aking DULoxetine HCl 60 MG Capsule Delayed Release Particles 1 capsule in the morning Oral Once a day , Taking DULoxetine HCl 60 MG Capsule Delayed Release Particles 1 capsule in the morning Oral Once a day , Taking LORazepam 0.5 MG Tablet 1 tablet Orally Once a day As needed, Taking Propranolol HCl 20 MG Tablet 1 tablet Oral once daily As needed, Unknown Fluticasone Propionate Diskus 50 MCG/ACT Aerosol Powder Breath Activated Inhalation , Notes to Pharmacist: *Reorder from [employer] for eRx and Interaction Alerts*, Unknown Methocarbamol 750 MG Tablet Oral , Unknown Ofloxacin 0.30% Solution Ophthalmic , Unknown Eliquis 2.5 MG Tablet Oral , Unknown oxyCODONE-Acetaminophen 5-325 MG Tablet Oral , Unknown Celecoxib 200 MG Capsule Oral , Unknown CHOLECALCIFEROL (VITAMIN D3) 125 MCG (5,000 UNIT) TABLET , Notes to Pharmacist: *Reorder from [employer] for eRx and Interaction Alerts*, Unknown Omeprazole 40 MG Capsule Delayed Release Oral Assessment: Plan: * Treatment: * Billing Information: * Visit Code: * Procedure Codes: * Electronic signature of Swapna Bush LCSW on 08/15/2024 at 07:29 PM HEAD OF PRODUCT Sign off status: Pending Signatures: No Ad Hoc Signature Added * Provider: Lorri BUSH LCSW Date: 0 07/19/2024 Generated for Shoshana alexander/Jakob on: 0 08/15/2024 07:29 PM HEAD OF PRODUCT
--- OUTSIDE RECORDS SUMMARY | 2024-08-15 19:30 | XMS_ITS | Encounter Summary ---
Author Organization [facility] Address [facility] [place] [address] Care Team Providers Care Paving Crew Foreman Name Role Phone Betina Ag MD Primary Care Provider [phone] Sherry Martinez PA-C Unavailable [phone] Encounter Details Date Type Department Care Team (Latest Contact Info) Description 07/22/2021 State [employer]ition[employer] Message Enc [facility] Medical Group Multispecialty Care - [address] [place], [place] [id number] Betina Ag MD [address] [place] [address] [address] [place] [address] Abnormal screening Social History Tobacco Use Types Packs/Day Years [...] have Coronavirus / COVID-19? No / Unsure 07/25/2021 10:41 AM SPECTROGRAPHIC ANALYST documented as of this encounter Plan of [...] documented as of this encounter Care Teams Paving Crew Foreman Relationship Specialty Start Date End Date Betina Ag MD [address] [address] PCP - General INTERNAL MEDICINE 01/03/21 Sherry Martinez, PAPilyC [address] [place] [address] Referring Physician Physician Manager Database Administration Medical 01/04/24 documented as of this encounter
--- OUTSIDE RECORDS SUMMARY | 2024-08-15 19:30 | XMS_ITS ---
Author Organization [facility] [employer] Address [address] [facility] [address] [place] [address] Care Team Providers Care Parachute Panel Joiner Name Role Phone Betina Ag MD Primary Care Provider UnavailKelsie Frost Unavailable [phone] Stephanie Castillo Unavailable [phone] Medications Medication SIG (Take, Route, Frequency, Duration) Notes Start Date End Date Status Propranolol HCl 20 MG 1 tablet Oral once daily for 90 days As needed Active Omeprazole 40 MG Oral 11/17/2023 Un known DULoxetine HCl 60 MG 1 capsule in the morning Oral Once a day for 90 days Active DULoxetine HCl 60 MG 1 capsule in the morning Oral Once a day for 90 days Active LORazepam 0.5 MG 1 tablet Orally Once a day for 30 days As needed 06/07/2024 Active Ofloxacin 0.30% Ophthalmic 11/17/2023 Un known Eliquis 2.5 MG Oral 11/17/2023 Unkn own oxyCODONE-Acetaminophe n 5-325 MG Oral 11/17/2023 Unknown Celecoxib 200 MG Oral 11/17/2023 Un known CHOLECALCIFEROL (VITAMIN D3) 125 MCG (5,000 UNIT) TABLET *Reorder from SpeakGlobalspan for eRx and Interaction Alerts* 11/17/2023 Unknown Fluticasone Propionate Diskus 50 MCG/ACT Inhalation *Reorder from Medispan for eRx and Interaction Alerts* 11/17/2023 Unknown Methocarbamol 750 MG Oral 11/17/2023 Unknown Social History Sex Assigned At : Social History Observation Description Sex Assigned At Female Encounters Encounter Location Date Provider Diagnosis [facility] [employer] [facility] [address] [place] [address] 06/21/2024 Stephanie Bush Plan Of Treatment Next Appt Details Provider Name:Stephanie Bush, 08/16/2024 09:00:00 AM, [address], [address], [place], [address], Provider Name:Kelsie Ontiveros, 09/05/2024 10:30:00 AM, [address], [address], [place], [address], Progress Notes * CHANO ABDULLAHI MDOB:[birth year] (33 yo F)Acc No.[id number]:06/21/2024 Patient: CHANO GEORGE Pamela Provider: Lorri BUSH RASPER MACHINE OPERATOR :1990 A ge:33 Y S ex:Female Date:06/21/2024 Address:[address] [place], [place] [id number] Pcp:Betina Ag MD Data: * Chief Complaints: * * Medical History: * Medications: T aking DULoxetine HCl 60 [...] Inhalation , Notes to Pharmacist: *Reorder from Therma Flite for eRx and Interaction Alerts*, Unknown Methocarbamol 750 MG Tablet Oral , Unknown Ofloxacin 0.30% Solution Ophthalmic , Unknown Eliquis 2.5 MG Tablet Oral , Unknown oxyCODONE-Acetaminophen 5-325 MG Tablet Oral , Unknown Celecoxib 200 MG Capsule Oral , Unknown CHOLECALCIFEROL (VITAMIN D3) 125 MCG (5,000 UNIT) TABLET , Notes to Pharmacist: *Reorder from Go Capitalan for eRx and Interaction Alerts*, Unknown Omeprazole 40 MG Capsule Delayed Release Oral * Vitals: Assessment: Plan: * Treatment: * Procedure Codes: N STHR NO SHOW THERAPY * Billing Information: * Visit Code: * Procedure Codes: NSTHR NO SHOW THERAPY. * Electronic signature of Swapna Bush LCSW on 08/15/2024 at 07:29 PM BUSINESS CONTINUITY PLANNING DIRECTOR Sign off status: Pending Signatures: No Ad Hoc Signature Added * Provider: Lorri BUSH LCSW Date: 1 08/22/2023 Generated for Shoshana alexander/Sharad/Jeramie on: 0 08/15/2024 07:29 PM BUSINESS CONTINUITY PLANNING DIRECTOR
--- NOTE | 2024-08-15 19:36 | PC.NURSE ---
Patient ambulated to ED exit with steady gait stating that she was going to leave to be seen at another facility due to wait times.
--- OUTSIDE RECORDS SUMMARY | 2024-08-15 20:05 | XMS_ITS | Encounter Summary ---
Author Organization [facility] Address [facility] [place] [address] Care Team Providers Care Pearl Restorer Name Role Phone Betina Ag MD Primary Care Provider [phone] Sherry Martinez PA-C Unavailable [phone] Encounter Details Date Type Department Care Team (Latest Contact Info) Description 01/14/2021 W-locate Message Enc [facility] Medical Group Multispecialty Care - [address] [address] [address] [place], [place] [phone] Betina Ag MD [address] [place] [address] [address] [place] [address] RE: appointment time Social History [...] documented as of this encounter Care Teams Pearl Restorer Relationship Specialty Start Date End Date Betina Ag MD [address] [address] PCP - General INTERNAL MEDICINE 01/03/21 Sherry Martinez, PAPilyC [address] [place] [address] Referring Physician Physician Collator Operator Medical 01/04/24 documented as of this encounter
--- OUTSIDE RECORDS SUMMARY | 2024-08-15 20:05 | XMS_ITS | Encounter Summary ---
Author Organization [facility] Address [facility] [place] [address] Care Team Providers Care Cartoonist Special Effects Name Role Phone Betina Ag MD Primary Care Provider [phone] Sherry Martinez PA-C Unavailable [phone] Encounter Details Date Type Department Care Team (Late st Contact Info) Description 09/18/2023 Spontactst Message Enc [facility] Medical Group Multispecialty Care - [place] [address] [address] [address] [place], [place] [phone] Betina Ag MD [address] [place] [address] [address] [place] [address] TB blood tests Social History [...] Depression Total Score: 14 024 2:02 PM MAINSPRING WINDER documented as of this encounter Care Teams Cartoonist Special Effects Relationship Specialty Start Date End Date Betina Ag MD [address] [address] PCP - General INTERNAL MEDICINE 01/03/21 Sherry Martinez PAPilyC [address] [place] [address] Referring Physician Physician Director Heart Medical 01/04/24 documented as of this encounter
--- OUTSIDE RECORDS SUMMARY | 2024-08-15 20:05 | XMS_ITS | Encounter Summary ---
Author Organization [facility] Address [facility] [place] [address] Care Team Providers Care Emt Paramedic Name Role Phone Betina Ag MD Primary Care Provider [phone] Sherry Martinez PA-C Unavailable [phone] Encounter Details Date Type Department Care Team (Late st Contact Info) Description 04/22/2022 G-cluster Message Enc [facility] Medical Group Multispecialty Care - [address] [place] [address] Hungry Localt, [facility] Provider Pa for Ct scan Social History [...] Total Score: 1 07/28/19 22 10:30 AM LABORER GOLD LEAF documented as of this encounter Care Teams Emt Paramedic Relationship Specialty Start Date End Date Betina Ag MD [address] [address] PCP - General INTERNAL MEDICINE 01/03/21 Sherry Martinez PA-C [facility] [place] [address] Referring Physician Physician Litharge Mill Operator Medical 01/04/24 documented as of this encounter
--- OUTSIDE RECORDS SUMMARY | 2024-08-15 20:05 | XMS_ITS | Encounter Summary ---
Author Organization [facility] Address [facility] [place] [address] Care Team Providers Care Port Engineer Name Role Phone Betina Ag MD Primary Care Provider [phone] Sherry Martinez PA-C Unavailable [phone] Encounter Details Date Type Department Care Team (Late st Contact Info) Description 09/10/[address] [facility] Medical Group Multispecialty Care - [place] [address] [address] [address] [place], [place] [phone] Betina Ag MD [address] [place] [address] [address] [place] [address] Anxiety Social History Tobacco Use [...] Depression Total Score: 14 024 2:02 PM PECAN GATHERER documented as of this encounter Care Teams Port Engineer Relationship Specialty Start Date End Date Betina Ag MD [address] [facility] [address] [place] [address] PCP - General INTERNAL MEDICINE 01/03/21 Sherry Martinez PAPilyC [address] [place] [address] Referring Physician Physician Data Conversion Operator Medical 01/04/24 documented as of this encounter
--- OUTSIDE RECORDS SUMMARY | 2024-08-15 20:05 | XMS_ITS | Clinical Summary ---
Author Organization [facility] Address [address] [place] [address] Phone Care Team Providers Care Refractory Bricklayer Name Role Phone Mini, Katerina PARK CNP Primary Care Provider [phone] Social History Tobacco Use Types Packs/Day Years [...] this topic Insurance MEDICAID [place] Care Teams Refractory Bricklayer Relationship Specialty Start Date End Date Morse, XAVIER Borges, ROSE [address] [place] [address] PCP - General Family Medicine 03/10/19
--- OUTSIDE RECORDS SUMMARY | 2024-08-15 20:05 | XMS_ITS | Encounter Summary ---
Author Organization [facility] Address [facility] [place] [address] Care Team Providers Care Advertising Agency Manager Name Role Phone Betina Ag MD Primary Care Provider [phone] Sherry Martinez PA-C Unavailable [phone] Encounter Details Date Type Department Care Team (Late st Contact Info) Description 11/14/2023 Gaston Labst Message Enc [facility] Medical Group Multispecialty Care - [place] [address] [address] [address] [place], [place] [phone] Betina Ag MD [address] [place] [address] [address] [place] [address] R hip pain Social History [...] Total Score: 14 024 2:02 PM BUSINESS MANAGEMENT ASSOCIATE documented as of this encounter Care Teams Advertising Agency Manager Relationship Specialty Start Date End Date Betina Ag MD [address] [address] PCP - General INTERNAL MEDICINE 01/03/21 Sherry Martinez PAPilyC [address] [place] [address] Referring Physician Physician Legal Director Medical 01/04/24 documented as of this encounter
--- OUTSIDE RECORDS SUMMARY | 2024-08-15 20:05 | XMS_ITS | Encounter Summary ---
Author Organization [facility] Address [facility] [place] [address] Care Team Providers Care Mainframe Developer Name Role Phone Betina Ag MD Primary Care Provider [phone] Sherry Martinez PA-C Unavailable [phone] Encounter Details Date Type Department Care Team (Late st Contact Info) Description 02/24/2022 MyChart Message Enc [facility] Medical Group Multispecialty Care - [address] [place] [address] [place] [address] [place] [address] [address] [place] [address] Tb Social History Tobacco Use [...] Total Score: 1 07/28/19 22 10:30 AM FOOD AND NUTRITION SUPERVISOR documented as of this encounter Care Teams Mainframe Developer Relationship Specialty Start Date End Date Betina Ag MD [address] [address] PCP - General INTERNAL MEDICINE 01/03/21 Sherry Martinez, PAPilyC [address] [place] [address] Referring Physician Physician Custom Seamstress Medical 01/04/24 documented as of this encounter
--- OUTSIDE RECORDS SUMMARY | 2024-08-15 20:05 | XMS_ITS | Encounter Summary ---
Author Organization [facility] Address [facility]6 [place] [address] Care Team Providers Care Health Coordinator Name Role Phone Betina Ag MD Primary Care Provider [phone] Sherry Martinez PA-C Unavailable [phone] Encounter Details Date Type Department Care Team (Late st Contact Info) Description 09/26/2023 Incipientt Message Enc [facility] Medical Group Multispecialty Care - [place] [address] [address] [address] [place], [place] [phone] Betina Ag MD [address] [place] [address] [address] [place] [address] Contraceptive Social History Tobacco Use [...] Depression Total Score: 14 024 2:02 PM AIRCRAFT MOTOR MECHANIC documented as of this encounter Care Teams Health Coordinator Relationship Specialty Start Date End Date Betina Ag MD [address] [facility] [address] [place] [address] PCP - General INTERNAL MEDICINE 01/03/21 Sherry Martinez PAPilyC [address] [place] [address] Referring Physician Physician Resource Specialist Teacher Medical 01/04/24 documented as of this encounter
--- OUTSIDE RECORDS SUMMARY | 2024-08-15 20:05 | XMS_ITS | Encounter Summary ---
Author Organization [facility] Address [address] [place] [address] Care Team Providers Care Program Director Substance Abuse Name Role Phone Betina Ag MD Primary Care Provider [phone] Sherry Martinez PA-C Unavailable [phone] Encounter Details Date Type Department Care Team (Late st Contact Info) Description 02/25/2022 NanoPowers Message Enc [facility] Medical Group Multispecialty Care - [address] [place] [address] [place], [facility] Provider Lab Order Social History [...] Total Score: 1 07/28/19 22 10:30 AM CHILD PSYCHOLOGIST documented as of this encounter Care Teams Program Director Substance Abuse Relationship Specialty Start Date End Date Betina Ag MD 1188 [facility] [address] [place] [address] PCP - General INTERNAL MEDICINE 01/03/21 Sherry Martinez, PA-C [address] [place] [address] Referring Physician Physician Teletype Or Varitype Keyboard Operator Medical 01/04/24 documented as of this encounter
--- OUTSIDE RECORDS SUMMARY | 2024-08-15 20:05 | XMS_ITS | Clinical Summary ---
Author Organization [facility] Address [address] [place] [address] Care Team Providers Care Pin Game Machine Inspector Name Role Phone Betina Ag MD Primary [...] Last Assessment & Plan: Condition: stable Gamaliel M encouraged to use relaxation to help cope [...] months Assessment & Plan (08/13/2023 10:35 PM VEGETABLE TRIMMER): Uncontrolled anxiety with panic attacks. Taking buspar [...] bleach solution if approve PCP. Consult professional insurance inspector to get way of cockroaches. Repair holes in william. Follow up in: three months with PCP Last Assessment & Plan: Condition: stable Today patient reports congestion, sinus pressure and runny nose due to seasonal allergies. Take otc allergy medications to alleviate symptoms. Drink plenty of fluids. Follow up in: six months Fracture, metacarpal 09/24/2014 Encounters Date Type Department Care Team Description 08/15/2024 Patient Self-Triage [facility] Health[facility]/ Physicians [address] [place] [address] Mychart, Generic Provider 07/04/2024 Orders Only [facility] Medical [facility] Convenient Care at [address] [phone] Esteban Jean-Baptiste NP 07/04/2024 Telephone [facility] Convenient Care at [address] [phone] Esteban Jean-Baptiste NP 07/03/2024 9:30 AM VEGETABLE TRIMMER Lab [facility] Outpatient Lab at [address] [phone] Recurrent major depressive disorder (HCC) (Primary Dx) 07/03/2024 9:21 AM VEGETABLE TRIMMER - 07/03/2024 11:59 PM VEGETABLE TRIMMER Hospital Encounter [address] [address] Screening examination for STI; Vaginal itching Discharge Disposition: Discharge to home or self care 07/03/2024 9:00 AM VEGETABLE TRIMMER Office Visit [facility] Care at [address] [phone] Esteban Jean-Baptiste NP Screening examination for STI (Primary Dx); Vaginal itching 07/03/2024 Patient Self-Triage [facility]/ Physicians [address] [place] [address] Shiraz Krueger Provider from Last 3 Months Medical History Medical History Date Comments Anxiety Social History Tobacco Use Types Packs/Day Years Used Date Smoking Tobacco: Never Smokeless Tobacco: Never Alcohol Use Standard Drinks/Week Comments Yes 0 (1 standard drink = 0.6 oz pur e alcohol) Comments Unknown Sex and Gender Information Value Date Recorded Sex Assigned at Not on file Legal Sex Female 3:14 AM VEGETABLE TRIMMER Gender Identity Not on file Sexual Orientation Not on file Obstetrics History Last Filed Vital Signs Vital Sign Reading Time Taken Comments Blood Pressure 118/70 07/03/2024 8:57 AM VEGETABLE TRIMMER Pulse 67 07/03/2024 8:57 AM VEGETABLE TRIMMER Temperature 36.8 C (98.2 F) 07/03/2024 8:57 AM VEGETABLE TRIMMER Respiratory Rate 20 07/03/2024 8:57 AM VEGETABLE TRIMMER Oxygen Saturation 98% 07/03/2024 8:57 AM VEGETABLE TRIMMER Inhaled Oxygen Concentration - - Weight 79.8 kg (176 lb) 07/03/2024 8:57 AM VEGETABLE TRIMMER Height 170.2 cm (5' 7 ) 07/03/2024 8:57 AM VEGETABLE TRIMMER Body Mass Index 27.57 07/03/2024 8:57 AM VEGETABLE TRIMMER Plan of Treatment Health Maintenance Due Date Last Done Comments Cervical Cancer Screening 1989 Depression Screening 1989 Varicella Vaccines (1 of 2 - 13+ 2-dose series) 2002 Regular Well Visit/Exam 18-64 12/17/2007 Covid-19 Vaccine ( - season) 2024 08/07/2020, 07/10/2020 DTaP/Tdap/Td Vaccine (2 [...] Comments VAGINITIS PANEL Routine 07/03/2024 9:21 AM VEGETABLE TRIMMER Vaginal itching N. GONORRHOEAE/C. TRACHOMATIS AMPLIFICATION Routine 07/03/2024 9:21 AM VEGETABLE TRIMMER Screening examination for STI HSV 1 ANTIBODY, IGG Routine 07/03/2024 9 :21 AM VEGETABLE TRIMMER Screening examination for STI HSV 2 ANTIBODY, IGG Routine 07/03/2024 9 :21 AM VEGETABLE TRIMMER Screening examination for STI HEPATITIS PANEL, ACUTE Routine 9:21 AM VEGETABLE TRIMMER Screening examination for STI RPR Routine 07/03/2024 9:21 AM VEGETABLE TRIMMER Screening examination for STI HIV 1/2 ANTIBODY PLUS P24 ANTIGEN Routine 07/03/2024 9:21 AM VEGETABLE TRIMMER Screening examination for STI from Last 3 Months Results * N. gonorrhoeae/C. trachomatis Amplification Vaginal (07/03/2024 9:21 AM VEGETABLE TRIMMER) C. trachomatis Not Detected [facility] Comment:Testing performed by : [facility], [address] [place] [address]., [address] N. gonorrhoeae Not Detected XAVIER WATT Comment: Interpretive Data This assay detects Chlamydia trachomatis and Neisseria gonorrhoeae by nucleic acid amplification testing (NAAT). This assay has been cleared by the [place] Food and Drug administration. The performance characteristics of this test have been verified by the [facility] Molecular Infectious Disease laboratory. The performance characteristics of this test have not been evaluated in individuals less than 14 years of age. Current Interpretive Data was last revised on 2023. Testing performed by: [facility], [address] [place] [address]., [address] Vaginal (None) 07/03/2024 9: 21 AM VEGETABLE TRIMMER 07/04/2024 10:03 AM VEGETABLE TRIMMER Esteban Jean-Baptiste NP LAB MICROBIOLOGY - GENERAL LISE MARTINEZ Final Result XAVIER WATT [address] Department [place] [address] [facility] * (ABNORMAL) Vaginitis panel Vaginal (07/03/2024 9:21 AM VEGETABLE TRIMMER) Pathologist [facility] [place] DNA probe Not Detected Not Detected Comment:Testing performed by : [facility], [address] [place] [address]., [address] Gardnerella DNA probe Detected(A) Not Detected XAVIER WATT Comment:Testing performed by : [facility], [address] [place] [address]., [address] Trichomonas DNA probe Not Detected Not Detected XAVIER WATT Comment: Interpretive Data Testing performed by [facility] via Affirm VPIII Microbial Identification Test, a [...] last revised on 2020. Testing performed by: [facility], [address] [place] [address], [place]., [address] Vaginal 07/03/2024 9:21 AM VEGETABLE TRIMMER 07/04/2024 2:31 PM VEGETABLE TRIMMER Esteban Jean-Baptiste NP LAB MICROBIOLOGY [facility] Final Result Performing Organization Address City/[facility]/ZIP Co de Phone Number XAVIER [address] [facility] [place] [address] * HIV 1/2 Antibody plus p24 Antigen Blood (07/03/2024 9:21 AM VEGETABLE TRIMMER) HIV 1/2 ab + p24 ag Nonreactive Nonreactive Comment: Nonreactive for HIV-1 antigen and HIV-1/HIV-2 antibodies. No laboratory evidence of HIV infection. If acute HIV infection is suspected, consider testing for HIV-1 RNA. Blood 07/03/2024 9:21 AM VEGETABLE TRIMMER 07/03/2024 4:05 PM VEGETABLE TRIMMER Esteban Jean-Baptiste NP LAB MICROBIOLOGY - [facility] Final Result Performing Organization Address City/[facility]/ZIP Co de Phone Number XAVIER [address] [address] [facility] [place] [address] * Hepatitis panel, acute Blood (07/03/2024 9:21 AM VEGETABLE TRIMMER) Hep A IgM Nonreactive Nonreactive Comment: Interpretive Data: If Hep A IgM Ab is reported as Equivocal, a new sample should be drawn in two weeks for testing. Current interpretive data was last revised on 19. Hep B core IgM Nonreactive Nonreactive XAVIER Comment: Interpretive Data If HepB Core IgM Ab is reported as Equivocal, a new sample should be drawn in two weeks for testing. Current interpretive data was last revised on 19. Hep C Ab Nonreactive Nonreactive [facility] Comment: Interpretive Data Nonreactive: Antibodies to [...] last revised on 2019. HepBsAg Nonreactive Nonreactive [facility] Blood 07/03/2024 9:21 AM VEGETABLE TRIMMER 07/03/2024 4:05 PM VEGETABLE TRIMMER Esteban Jean-Baptiste NP [facility] MICROBIOLOGY [facility] Final Result Performing Organization Address [facility] de Phone Number [facility] [address] [facility] [place] [address] * HSV 2 IgG Antibody Blood (07/03/2024 9:21 AM VEGETABLE TRIMMER) Pathologist [facility] HSV 2 IgG Nonreactive Nonreactive Comment: Interpretive Data 1. Nonreactive: No detectable IgG antibody to HSV-2. 2. Equivocal: Presence or absence of detectable antibodies to HSV-2 cannot be determined and the test should be repeated. 3. Reactive: Indicates presence of detectable IgG antibody to HSV-2. Current interpretive data was last revised on 2022. Testing performed by: [facility], [address] [place]., [address] Blood 07/03/2024 9:21 AM VEGETABLE TRIMMER 07/04/2024 9:50 AM VEGETABLE TRIMMER Esteban Jean-Baptiste NP [facility] MICROBIOLOGY - GENERAL [facility] Final Result Performing Organization Address [facility] Co de Phone Number [facility] [address] [address] [facility] [place] [address] * HSV 1 IgG Antibody Blood (07/03/2024 9:21 AM VEGETABLE TRIMMER) Pathologist [facility] HSV 1 IgG Nonreactive Nonreactive Comment: Interpretive Data 1. Nonreactive: No detectable IgG antibody to HSV-1. 2. Equivocal: Presence or absence of detectable antibodies to HSV-1 cannot be determined and the test should be repeated. 3. Reactive: Indicates presence of detectable IgG antibody to HSV-1. Current interpretive data was last revised on 2016. Testing performed by: [facility], [address] [place]., [address] Blood 07/03/2024 9:21 AM VEGETABLE TRIMMER 07/04/2024 9:50 AM VEGETABLE TRIMMER Esteban Jean-Baptiste NP LAB MICROBIOLOGY - GENERAL ORDE RABJIGNESH Final Result Performing Organization Address City/[facility]/ZIP Co de Phone Number XAVIER [address] [address] [place] [address] * RPR Blood (07/03/2024 9:21 AM VEGETABLE TRIMMER) RPR Nonreactive Nonreactive Blood 07/03/2024 9:21 AM VEGETABLE TRIMMER 07/03/2024 4:05 PM VEGETABLE TRIMMER Esteban Jean-Baptiste NP LAB MICROBIOLOGY - GENERAL ORDE RABLES Final Result Performing Organization Address City/[facility] Co de Phone Number [facility] [address] [place] [address] from Last 3 Months Insurance [facility] Care Teams Pin Game Machine Inspector Relationship Specialty Start Date End Date Betina Ag MD [address] [place] [address] PCP - General Internal Medicine 07/15/23
--- OUTSIDE RECORDS SUMMARY | 2024-08-15 20:05 | XMS_ITS | Encounter Summary ---
Author Organization [facility] Address [facility] [place] [address] Care Team Providers Care Taxation Agent Name Role Phone Betina Ag MD Primary Care Provider [phone] Sherry Martinez PA-C Unavailable [phone] Encounter Details Date Type Department Care Team (Late st Contact Info) Description 08/12/2023 Rewardixt Message Enc [facility] Medical Group Multispecialty Care - [address] [address] [address] [place], [place] [id number] Betina Ag MD [address] [place] [address] [address] [place] [address] HERMILA Social History Tobacco Use [...] Total Score: 1 05/18/20 23 3:49 PM CLINICAL ABSTRACTOR documented as of this encounter Care Teams Taxation Agent Relationship Specialty Start Date End Date Betina Ag MD [address] [facility] [address] [place] [address] PCP - General INTERNAL MEDICINE 01/03/21 Sherry Martinez PAPilyC [address] [place] [address] Referring Physician Physician Lumber Hacker Medical 01/04/24 documented as of this encounter
--- OUTSIDE RECORDS SUMMARY | 2024-08-15 20:05 | XMS_ITS | Encounter Summary ---
Author Organization [facility] Address [address] [place] [address] Care Team Providers Care Glass Tinter Name Role Phone Betina Ag MD Primary Care Provider [phone] Sherry Martinez PA-C Unavailable [phone] Encounter Details Date Type Department Care Team (Late st Contact Info) Description 07/20/2022 MyChart Message Enc [facility] Medical Group Multispecialty Care - [address] [place] [address] [place] [address] [place] [address] 157 [place] [address] Ultrasound Social History Tobacco Use [...] Coronavirus/COVID-19? No / Unsure 07/21/2022 8:09 AM COMMERCIAL FOOD INSTRUCTOR documented as of this encounter Plan of Treatment Not on file documented as of this encounter Visit Diagnoses Not on filedocumented in this encounter Additional Health Concerns Infection Onset Date Last Indicated Resolved Time COVID-19 Rule Out 03/10/2024 03/10/2024 03/10/2024 10:58 AM CDT COVID-19 Confirmed 03/10/2024 03/10/2024 12:32 AM CDT Assessment Noted Time PHQ-9 Depression Total Score: 1 07/28/19 22 10:30 AM COMMERCIAL FOOD INSTRUCTOR documented as of this encounter Care Teams Glass Tinter Relationship Specialty Start Date End Date Betina Ag MD 1188 [facility] 157 [place] [address] PCP - General INTERNAL MEDICINE 01/03/21 Sherry Martinez, PAPilyC 1225 [place] [address] Referring Physician Physician Manager Stars [facility] 01/04/24 documented as of this encounter
--- OUTSIDE RECORDS SUMMARY | 2024-08-15 20:05 | XMS_ITS | Encounter Summary ---
Author Organization [facility] Address [address] [place] [address] Care Team Providers Care Carpet Binder Name Role Phone Betina Ag MD Primary Care Provider [phone] Sherry Martinez PA-C Unavailable [phone] Encounter Details Date Type Department Care Team (Late st Contact Info) Description 09/23/2023 NanoCompound Message Enc [facility] Medical Group Multispecialty Care [address] [place] [address] [email or web address], [facility] Provider lab order Social History Tobacco [...] Depression Total Score: 14 024 2:02 PM DRAW IN HAND documented as of this encounter Care Teams Carpet Binder Relationship Specialty Start Date End Date Betina Ag MD 1188 [facility] 157 [place] [address] PCP - General INTERNAL MEDICINE 01/03/21 Sherry Martinez PA-C 12[address] [place] [address] Referring Physician Physician Human Capital Manager Medical 01/04/24 documented as of this encounter
--- OUTSIDE RECORDS SUMMARY | 2024-08-15 20:05 | XMS_ITS | Encounter Summary ---
Author Organization [facility] Address [facility]6 [place] [address] Care Team Providers Care Lease Analyst Name Role Phone Betina Ag MD Primary Care Provider [phone] Sherry Martinez PA-C Unavailable [phone] Encounter Details Date Type Department Care Team (Latest Contact Info) Description 01/04/2021 Pannat Message Enc [facility] Medical Group Multispecialty Care - [address] [place], [place] [id number] Betina Ag MD [address] [place] [address] 157 [place] [address] RE: Test Results Social History [...] documented as of this encounter Care Teams Lease Analyst Relationship Specialty Start Date End Date Betina Ag MD [address] [address] PCP - General INTERNAL MEDICINE 01/03/21 Sherry Martinez, PAPilyC [address] [place] [address] Referring Physician Physician Senior Quality Assurance Specialist Medical 01/04/24 documented as of this encounter
--- OUTSIDE RECORDS SUMMARY | 2024-08-15 20:05 | XMS_ITS | Encounter Summary ---
Author Organization [facility] Address [facility]6 [place] [address] Care Team Providers Care Clay Mixer Name Role Phone Betina Ag MD Primary Care Provider [phone] Sherry Martinez PA-C Unavailable [phone] Encounter Details Date Type Department Care Team (Latest Contact Info) Description 01/13/2021 Job36t Message Enc [facility] Medical Group Multispecialty Care - [address] [address] [address] [place], [place] [id number] Betina Ag MD [address] [place] [address] [address] [place] [address] RE: follow up visit Social [...] documented as of this encounter Care Teams Clay Mixer Relationship Specialty Start Date End Date Betina Ag MD [address] [address] PCP - General INTERNAL MEDICINE 01/03/21 Sherry Martinez, PAPilyC [facility]5 [place] [address] Referring Physician Physician Director Of Emergency Nursing Medical 01/04/24 documented as of this encounter
--- OUTSIDE RECORDS SUMMARY | 2024-08-15 20:05 | XMS_ITS | Encounter Summary ---
Author Organization [facility] Address [facility]6 [place] [address] Care Team Providers Care Fabric Separator Operator Name Role Phone Betina Ag MD Primary Care Provider [phone] Sherry Martinez PA-C Unavailable [phone] Encounter Details Date Type Department Care Team (Late st Contact Info) Description 01/04/2021 BlueConict Message Enc [facility] Medical Group Multispecialty Care - [address] [place], [place] [phone] Betina Ag MD [address] [place] [address] 157 [place] [address] Test Results Social History Tobacco [...] documented as of this encounter Care Teams Fabric Separator Operator Relationship Specialty Start Date End Date Betina Ag MD [address] [address] PCP - General INTERNAL MEDICINE 01/03/21 Sherry Martinez, PAPilyC [address] [place] [address] Referring Physician Physician Anode Worker Medical 01/04/24 documented as of this encounter
--- OUTSIDE RECORDS SUMMARY | 2024-08-15 20:05 | XMS_ITS | Encounter Summary ---
Author Organization [facility] Address [facility] [place] [address] Care Team Providers Care Court Reporter Name Role Phone Betina Ag MD Primary Care Provider [phone] Sherry Martinez PA-C Unavailable [phone] Encounter Details Date Type Department Care Team (Latest Contact Info) Description 02/25/2022 Snapsort Message Enc [facility] Medical Group Multispecialty Care - [address] [address] [address] [place], [place] [phone] Betina Ag MD [address] [place] [address] [address] [place] [address] Preceptor for nurse practitioner Social [...] Total Score: 1 07/28/19 22 10:30 AM MECHANICAL DRAWING TEACHER documented as of this encounter Care Teams Court Reporter Relationship Specialty Start Date End Date Betina Ag MD [address] [address] PCP - General INTERNAL MEDICINE 01/03/21 Sherry Martinez, PAPilyC [facility]5 [place] [address] Referring Physician Physician Administrator [facility] Medical 01/04/24 documented as of this encounter
--- OUTSIDE RECORDS SUMMARY | 2024-08-15 20:05 | XMS_ITS | Referral Summary ---
Author Organization [facility] Address [address] [place] [address] Care Team Providers Care Bevel Face Stoner And Polisher Name Role Phone Betina Ag MD Primary Care Provider Encounters Date Type Department Care Team Description 08/15/2024 Patient Self-Triage [facility] [address] [place] [address] Shiraz Krueger Provider 07/04/2024 Orders Only [facility] Medical Group Convenient Care at [address] [address] Esteban Jean-Baptiste NP 07/04/2024 Telephone [facility] Con[facility]ient [facility] at [address] [address] Esteban Jean-Baptiste NP 07/03/2024 9:21 AM BAR POINTER - 07/03/2024 11:59 PM BAR POINTER Hospital Encounter [address] [address] Screening examination for STI; Vaginal itching Discharge Disposition: Discharge to home or self care 07/03/2024 9:30 AM BAR POINTER Lab [facility] Outpatient Lab at [address] [address] Recurrent major depressive disorder (HCC) (Primary Dx) 07/03/2024 9:00 AM BAR POINTER Office Visit [facility] at [address] [address] Esteban Jean-Baptiste NP Screening examination for STI (Primary Dx); Vaginal itching 07/03/2024 Patient Self-Triage [facility] Health[facility]/ Physicians [address] [place] [address] Pati, Generic Provider from Last 3 Months Allergies [...] Last Assessment & Plan: Condition: eduardo Santiago encouraged to use relaxation to help [...] months Assessment & Plan (08/13/2023 10:35 PM BAR POINTER): Uncontrolled anxiety with panic attacks. Taking buspar [...] bleach solution if approve PCP. Consult professional instrumentation instructor to get way of cockroaches. Repair holes [...] on file Legal Sex Female 3:14 AM BAR POINTER Gender Identity Not on file Sexual Orientation Not on file Last Filed Vital Signs Vital Sign Reading Time Taken Comments Blood Pressure 118/70 07/03/2024 8:57 AM BAR POINTER Pulse 67 07/03/2024 8:57 AM BAR POINTER Temperature 36.8 C (98.2 F) 07/03/2024 8:57 AM BAR POINTER Respiratory Rate 20 07/03/2024 8:57 AM BAR POINTER Oxygen Saturation 98% 07/03/2024 8:57 AM BAR POINTER Inhaled Oxygen Concentration - - Weight 79.8 kg (176 lb) 07/03/2024 8:57 AM BAR POINTER Height 170.2 cm (5' 7 ) 07/03/2024 8:57 AM BAR POINTER Body Mass Index 27.57 07/03/2024 8:57 AM BAR POINTER Plan of Treatment Not on file Procedures Procedure Name Priority Date/Time Associated Diagnosis Comments VAGINITIS PANEL Routine 07/03/2024 9:21 AM BAR POINTER Vaginal itching N. GONORRHOEAE/C. TRACHOMATIS AMPLIFICATION Routine 07/03/2024 9:21 AM BAR POINTER Screening examination for STI HSV 1 ANTIBODY, IGG Routine 07/03/2024 9 :21 AM BAR POINTER Screening examination for STI HSV 2 ANTIBODY, IGG Routine 07/03/2024 9 :21 AM BAR POINTER Screening examination for STI HEPATITIS PANEL, ACUTE Routine 9:21 AM BAR POINTER Screening examination for STI RPR Routine 07/03/2024 9:21 AM BAR POINTER Screening examination for STI HIV 1/2 ANTIBODY PLUS P24 ANTIGEN Routine 07/03/2024 9:21 AM BAR POINTER Screening examination for STI from Last 3 Months Results * N. gonorrhoeae/C. trachomatis Amplification Vaginal (07/03/2024 9:21 AM BAR POINTER) Pathologist [facility] C. trachomatis Not Detected [facility] Comment:Testing performed by : [facility], [address] [place] [address], [place]., [address] N. gonorrhoeae Not Detected [facility] Comment: Interpretive Data This assay detects Chlamydia trachomatis and Neisseria gonorrhoeae by nucleic acid amplification testing (NAAT). This assay has been cleared by the [place] Food and Drug administration. The performance characteristics of this test have been verified by the [facility] Molecular Infectious Disease laboratory. The performance characteristics of this test have not been evaluated in individuals less than 14 years of age. Current Interpretive Data was last revised on 2023. Testing performed by: [facility], [address] [place]., [address] Vaginal (None) 07/03/2024 9: 21 AM BAR POINTER 07/04/2024 10:03 AM BAR POINTER Esteban Jean-Baptiste NP LAB MICROBIOLOGY - GENERAL ORDE RABLES Final Result Performing Organization Address [facility] Co de Phone Number KEILYNATALY WATT [address] [place] [address] [facility] * (ABNORMAL) Vaginitis panel Vaginal (07/03/2024 9:21 AM BAR POINTER) [place] DNA probe Not Detected Not Detected Comment:Testing performed by : [facility], [address] [place] [address]., [id number] Gardnerella DNA probe Detected(A) Not Detected [facility] Comment:Testing performed by : [facility], [address] [place] [address]., [id number] Trichomonas DNA probe Not Detected Not Detected [facility] Comment: Interpretive Data Testing performed by [facility] via Affirm VPIII Microbial Identification Test, a [...] last revised on 2020. Testing performed by: [facility], [address] [place] [address]., [id number] Vaginal 07/03/2024 9:21 AM BAR POINTER 07/04/2024 2:31 PM BAR POINTER Esteban Jean-Baptiste NP LAB MICROBIOLOGY - GENERAL ORDE RABLES Final Result Performing Organization Address City/[facility]/ZIP Co de Phone Number [facility] WATT [phone] [place] [address] * HIV 1/2 Antibody plus p24 Antigen Blood (07/03/2024 9:21 AM BAR POINTER) HIV 1/2 ab + p24 ag Nonreactive Nonreactive Comment: Nonreactive for HIV-1 antigen and HIV-1/HIV-2 antibodies. No laboratory evidence of HIV infection. If acute HIV infection is suspected, consider testing for HIV-1 RNA. Blood 07/03/2024 9:21 AM BAR POINTER 07/03/2024 4:05 PM BAR POINTER Esteban Jean-Baptiste NP LAB MICROBIOLOGY - GENERAL ORDE [id number] Final Result Performing Organization Address [facility]/ZIP Co de Phone Number [facility] [address] Department [place] [address] * Hepatitis panel, acute Blood (07/03/2024 9:21 AM BAR POINTER) Pathologist [facility] Hep A IgM Nonreactive Nonreactive Comment: Interpretive Data: If Hep A IgM Ab is reported as Equivocal, a new sample should be drawn in two weeks for testing. Current interpretive data was last revised on 19. Hep B core IgM Nonreactive Nonreactive [facility] Comment: Interpretive Data If HepB Core IgM Ab is reported as Equivocal, a new sample should be drawn in two weeks for testing. Current interpretive data was last revised on 19. Hep C Ab Nonreactive Nonreactive [facility] Comment: Interpretive Data Nonreactive: Antibodies to [...] last revised on 2019. HepBsAg Nonreactive Nonreactive [facility] Blood 07/03/2024 9:21 AM BAR POINTER 07/03/2024 4:05 PM BAR POINTER Esteban Jean-Baptiste NP LAB MICROBIOLOGY - GENERAL ORDE RABLES Final Result Performing Organization Address City/[facility]/ZIP Co de Phone Number [facility] WATT [address] [facility] [place] [place] [address] * HSV 2 IgG Antibody Blood (07/03/2024 9:21 AM BAR POINTER) Pathologist [facility] HSV 2 IgG Nonreactive Nonreactive Comment: Interpretive Data 1. Nonreactive: No detectable IgG antibody to HSV-2. 2. Equivocal: Presence or absence of detectable antibodies to HSV-2 cannot be determined and the test should be repeated. 3. Reactive: Indicates presence of detectable IgG antibody to HSV-2. Current interpretive data was last revised on 2022. Testing performed by: [facility], [address] [place] [address]., [id number] Blood 07/03/2024 9:21 AM BAR POINTER 07/04/2024 9:50 AM BAR POINTER Esteban Jean-Baptiste NP LAB MICROBIOLOGY - GENERAL ORDE RABLES Final Result Performing Organization Address [facility] de Phone Number X[facility] [address] [address] [facility] [place] [address] * HSV 1 IgG Antibody Blood (07/03/2024 9:21 AM BAR POINTER) Pathologist [facility] HSV 1 IgG Nonreactive Nonreactive Comment: Interpretive Data 1. Nonreactive: No detectable IgG antibody to HSV-1. 2. Equivocal: Presence or absence of detectable antibodies to HSV-1 cannot be determined and the test should be repeated. 3. Reactive: Indicates presence of detectable IgG antibody to HSV-1. Current interpretive data was last revised on 2016. Testing performed by: [facility], [address] [place] [address]., [id number] Blood 07/03/2024 9:21 AM BAR POINTER 07/04/2024 9:50 AM BAR POINTER Esteban Jean-Baptiste NP LAB MICROBIOLOGY - GENERAL ORDE RABLES Final Result Performing Organization Address [facility] Co de Phone Number X[facility] [phone] [facility] [place] [address] * RPR Blood (07/03/2024 9:21 AM BAR POINTER) RPR Nonreactive Nonreactive Blood 07/03/2024 9:21 AM BAR POINTER 07/03/2024 4:05 PM BAR POINTER us Esteban Jean-Baptiste PLANT ATTENDANT OR ASSISTANT OPERATOR LAB MICROBIOLOGY - GENERAL LISE MARTINEZ Final Result [facility] [id number] Department [place] [address] from Last 3 Months Insurance Care Teams Bevel Face Stoner And Polisher Relationship Specialty Start Date End Date Betina Ag MD [address] [place], [place] [id number] PCP - General Internal Medicine 07/15/23
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
--- OUTSIDE RECORDS SUMMARY | 2024-08-15 20:06 | XMS_ITS | Encounter Summary ---
Author Organization [facility] Address [facility] [place] [address] Care Team Providers Care Actuarial Trainee Name Role Phone Betina Ag MD Primary Care Provider [phone] Sherry Martinez PA-C Unavailable Encounter Details Date Type Department Care Team (Late st Contact Info) Description 09/07/2023 Autotethert Message Enc [facility] Medical [facility] Multispecialty Care - [place] [address] [address] [address] [place], [place] [id number] Betina Ag MD [address] [place] [address] [address] [place] [address] Tremors Social History Tobacco Use [...] Depression Total Score: 14 024 2:02 PM TRAILER 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
--- OUTSIDE RECORDS SUMMARY | 2024-08-15 20:06 | XMS_ITS | Encounter Summary ---
Author Organization [facility] Address [facility] [place] [address] Care Team Providers Care Research Physician Name Role Phone Betina Ag MD Primary Care Provider [phone] Sherry Martinez PA-C Unavailable [phone] Encounter Details Date Type Department Care Team (Latest Contact Info) Description 09/15/2022 Drybar Message Enc [facility] Medical Group Multispecialty Care - [place] [address] [address] [place], [place] [id number] Betina Ag MD [address] [place] [address] [address] [place] [address] EMPLOYMENT RECRUITER clinical hours Social History Tobacco Use Types [...] Total Score: 1 07/28/19 22 10:30 AM MANAGER OF CLINICAL documented as of this encounter Care Teams Research Physician Relationship Specialty Start Date End Date Betnia Ag MD [address] [facility] [address] [place] [address] PCP - General INTERNAL MEDICINE 01/03/21 Sherry Martinez PAPilyC [facility] [place] [address] Referring Physician Physician Fairing Man Medical 01/04/24 documented as of this encounter
--- OUTSIDE RECORDS SUMMARY | 2024-08-15 20:06 | XMS_ITS | Clinical Summary ---
Author Organization [facility] Address [address] [place] [phone] Phone Care Team Providers Care Diesel Truck Crane Operator Name Role Phone Ashwini Ji MD Primary Care Provider [phone] Allergies No known active allergies Medications montelukast [...] topic Insurance [employer] [employer] [place] Care Teams Diesel Truck Crane Operator Relationship Specialty Start Date End Date Ashwini Ji MD PCP - General Internal Medicine 03/03/15
--- OUTSIDE RECORDS SUMMARY | 2024-08-15 20:06 | XMS_ITS | Encounter Summary ---
Author Organization [facility] Address [facility] [place] [address] Care Team Providers Care Systems Engineer Name Role Phone Betina Ag MD Primary Care Provider [phone] Sherry Martinez PA-C Unavailable [phone] Encounter Details Date Type Department Care Team (Latest Contact Info) Description 07/22/2021 hi5t Message Enc [facility] Medical Group Multispecialty Care - [address] [place], [place] [id number] Betina Ag MD [address] [place] [address] [address] [place] [address] Abnormal screening Social History Tobacco [...] COVID-19? No / Unsure 07/25/2021 10:41 AM HIGH HEEL BUILDER documented as of this encounter Plan of [...] documented as of this encounter Care Teams Systems Engineer Relationship Specialty Start Date End Date Betina Ag MD [address] [address] PCP - General INTERNAL MEDICINE 01/03/21 Sherry Martinez, PAPilyC [address] [place] [address] Referring Physician Physician Binding Machine Operator Medical 01/04/24 documented as of this encounter
--- OUTSIDE RECORDS SUMMARY | 2024-08-15 20:06 | XMS_ITS | Encounter Summary ---
Author Organization [facility] Address [facility] [place] [address] Care Team Providers Care Press Operator Instant Print Shop Name Role Phone Betina Ag MD Primary Care Provider Sherry Martinez PA-C Unavailable [phone] Encounter Details Date Type Department Care Team (Late st Contact Info) Description 05/09/2023 Cliqsett Message Enc [facility] Medical Group Multispecialty Care - [address] [place], [place] [phone] Betina Ag MD [address] [place] [address] [address] [place] [address] Right calf pain Social History [...] Score: 1 07/28/19 22 10:30 AM FRONT END DRIVER documented as of this encounter Care Teams Press Operator Instant Print Shop Relationship Specialty Start Date End Date Betina Ag MD [address] [address] PCP - General INTERNAL MEDICINE 01/03/21 Sherry Martinez PAPilyC [address] [place] [address] Referring Physician Physician Supervisor Wet Pour Medical 01/04/24 documented as of this encounter
--- OUTSIDE RECORDS SUMMARY | 2024-08-15 20:06 | XMS_ITS | Encounter Summary ---
Author Organization [facility] Address [facility] [place] [address] Care Team Providers Care Insurance Risk Surveyor Name Role Phone Betina Ag MD Primary Care Provider [phone] Sherry Martinez PA-C Unavailable [phone] Encounter Details Date Type Department Care Team (Latest Contact Info) Description 07/30/2023 SpareFoott Message Enc [facility] Medical Group Multispecialty Care - [place] [address] [address] [place], [place] [address] Betina Ag MD [address] [place] [address] [address] [place] [address] Clinical start time Social History [...] Total Score: 1 05/18/20 23 3:49 PM ADVERTISING ASSOCIATE documented as of this encounter Care Teams Insurance Risk Surveyor Relationship Specialty Start Date End Date Betina Ag MD [address] [address] PCP - General INTERNAL MEDICINE 01/03/21 Sherry Martinez, PAPilyC [address] [place] [address] Referring Physician Physician Rn Oncology Research Medical 01/04/24 documented as of this encounter
--- OUTSIDE RECORDS SUMMARY | 2024-08-15 20:06 | XMS_ITS | Encounter Summary ---
Author Organization [facility] Address [address] [place] [address] Care Team Providers Care Cooperative Manager Name Role Phone Betina Ag MD Primary Care Provider [phone] Sherry Martinez PA-C Unavailable [phone] Encounter Details Date Type Department Care Team (Late st Contact Info) Description 06/29/2024 SeptRxt Message Enc [facility] Medical Group Multispecialty Care - [place] [address] [address] [place], [place] [address] Betina Ag MD [address] [place] [address] 157 [place] [address] Physical Social History Tobacco Use [...] Total Score: 2 06/23/20 24 3:34 PM BIOLOGY TUTOR documented as of this encounter Care Teams Cooperative Manager Relationship Specialty Start Date End Date Betina Ag MD [address] [address] PCP - General INTERNAL MEDICINE 01/03/21 Sherry Martinez PA-C [address] [facility] [place] [address] Referring Physician Physician Stockroom Supervisor Medical 01/04/24 documented as of this encounter
--- OUTSIDE RECORDS SUMMARY | 2024-08-15 20:06 | XMS_ITS | Clinical Summary ---
Author Organization [facility] Address [address] [place] [address] Care Team Providers Care Jig Mill Operator Name Role Phone Betina Ag MD Primary Care Provider [phone] Sherry Martinez PA-C Unavailable [phone] Allergies No known active allergies Medications DULoxetine [...] Type Department Care Team Description 07/04/2024 Scan Mapp INFO SRVCS Scanned, Doc Med Group Lab (SCAN); Ultrasound (SCAN); CT (SCAN) 06/29/2024 E-nterview Message Enc [facility] [address] [place] [address] Betina Ag MD Physical 06/26/2024 7:30 AM INTEGRITY MANAGER Allied Health/Nurse [facility] - [place] [address] [facility] [address] [place] [address] Betina Ag MD Allied Health Visit (Patient present for labs) 06/26/2024 Orders Only [facility] [address] [facility] [address] [place] [address] Kendal Ball MA 06/26/2024 Travel 06/23/2024 1:40 PM INTEGRITY MANAGER [facility] [place] [address] [place] [address] Betina Ag MD Physical 06/23/2024 Travel from [...] 36.3 C (97.3 F) 06/23/2024 2:12 PM INTEGRITY MANAGER Respiratory Rate 18 03/10/2024 10:3 1 AM CDT Oxygen Saturation 100% 03/10/2024 10: 31 AM CDT Inhaled Oxygen Concentration - - Weight 78.8 kg (173 lb 12.8 oz) 06/23/2024 2:12 PM INTEGRITY MANAGER Height 172.7 cm (5' 8 ) 06/23/2024 2:12 PM INTEGRITY MANAGER Body Mass Index 26.43 06/23/2024 2:12 PM INTEGRITY MANAGER Plan of Treatment Health Maintenance Due Date [...] 06/11/2021, 08/07/2020, Additional history exists PHQ-2 (Physician [place]) 07/05/2024 06/23/2024 Annual Physical 06/23/2025 06/23/2024, 05/05, [...] CBC W/DIFF AUTOMATED Routine 06/26/2024 8:02 AM INTEGRITY MANAGER Annual physical exam General medical exam Drug therapy COMPREHENSIVE METABOLIC PANEL Routine 06/26/2024 8:02 AM INTEGRITY MANAGER Annual physical exam General medical exam Drug therapy LIPID PANEL Routine 06/26/2024 8:02 AM INTEGRITY MANAGER Annual physical exam General medical exam Screening for hyperlipidemia Drug therapy TSH W/REFLEX Routine 06/26/2024 8:02 AM INTEGRITY MANAGER Annual physical exam General medical exam Screening for hypothyroidism Drug therapy HEMOGLOBIN, GLYCOSYLATED Routine 06/26/2024 8:02 AM INTEGRITY MANAGER Annual physical exam General medical exam Screening for diabetes mellitus Drug therapy COLLECTION VENOUS BLOOD VENIPUNCTURE Routine 06/23/2024 2:32 PM INTEGRITY MANAGER Annual physical exam General medical exam Drug [...] Anatomical Region Laterality Modality Other 07/04/2024 us [facility] Scanned SCANNING Final Resu lt * OUTSIDE LAB (SCAN ORDER) (07/04/2024) Only the most recent of5 resultswithin the time period is included. 07/04/2024 us [facility] Scanned SCANNING Final Resu lt * ULTRASOUND GENERIC (SCAN ORDER) (07/04/2024) Only the most recent of2 resultswithin the time period is included. Anatomical Region Laterality Modality Other 07/04/2024 Doc Med Group Scanned SCANNING Final Resu lt * TSH W/REFLEX (06/26/2024 8:02 AM INTEGRITY MANAGER) TSH 1.619 0.358 - 3.740 uIU/ML 06/26/2024 3:06 PM INTEGRITY MANAGER [facility] 06/26/2024 8:02 AM INTEGRITY MANAGER Betina Ag MD LABORATORY Final Result Performing Organization Address [facility] Co de Phone Number [facility] [address] [place] [address], * (ABNORMAL) HEMOGLOBIN, GLYCOSYLATED (06/26/2024 8:02 AM INTEGRITY MANAGER) HGB A1C 5.4 4.5 - 6.2 % 06/26/2024 3:29 PM INTEGRITY MANAGER [facility] ESTIMATED AVG GLUCOSE 108(H) 74 - 106 MG/DL 06/26/2024 3:29 PM INTEGRITY MANAGER [facility] 06/26/2024 8:02 AM INTEGRITY MANAGER Betina Ag MD LABORATORY Final Result Performing Organization Address City/[facility]/ZIP Co de Phone Number [facility] [address] [place] [address], * (ABNORMAL) COMPREHENSIVE METABOLIC PANEL (06/26/2024 8:02 AM INTEGRITY MANAGER) SODIUM S/P/B 143 136 - 145 MMOL/L 06/26/2024 3:06 PM INTEGRITY MANAGER [facility] POTASSIUM S/P/B 4.1 3.5 - 5.1 MMOL/L 06/26/2024 3:06 PM [facility] CHLORIDE S/P/B 106 98 - 107 MMOL/L 06/26/2024 3:06 PM [facility] CO2 30.4 21 - 32 MMOL/L 06/26/2024 3:06 PM [facility] GLUCOSE 93 70 - 99 MG/DL 06/26/2024 3:06 PM [facility] BUN 10 7 - 18 MG/DL 06/26/2024 3:06 PM [facility] CREATININE S/P/B 0.95 0.55 - 1.02 MG/DL 06/26/2024 3:06 PM [facility] CALCIUM S/P/B 9.0 8.4 - 10.5 MG/DL 06/26/2024 3:06 PM [facility] BILIRUBIN TOTAL S/P/B 0.5 0.2 - 1.0 MG/DL 06/26/2024 3:06 PM [facility] ALKALINE PHOSPHATASE S/P/B 69 37 - 98 U/L 06/26/2024 3:06 PM [facility] AST 12(L) 15 - 37 U/L 06/26/2024 3:06 PM [facility] ALT 17 14 - 59 U/L 06/26/2024 3:06 PM [facility] TOTAL PROTEIN S/P/B 7.5 6.4 - 8.2 G/DL 06/26/2024 3:06 PM [facility] ALBUMIN S/P/B 3.7 3.4 - 5.0 G/DL 06/26/2024 3:06 PM [facility] ANION GAP 6.6 5 - 15 MMOL/L 06/26/2024 3:06 PM [facility] Comment:REFERENCE RANGE NOT ESTABLISHED OSMOLALITY (CALC) 295 MOSM/KG 12/23/2 024 3:06 PM [facility] Comment:REFERENCE RANGE NOT ESTABLISHED GFR ESTIMATE 81(L) >90 ML/MIN/1. 73 M2 06/26/2024 3:06 PM [facility] GFR NOTES GFR REFERENCE S: 06/26/2024 3:06 PM [facility] Comment: THE ESTIMATED GFR IS CALCULATED USING [...] FAILURE: <15 ml/min/1.73 m2 06/26/2024 8:02 AM INTEGRITY MANAGER Betina Ag MD LABORATORY Final Result [facility] [address] [place] [address], * (ABNORMAL) LIPID PANEL (06/26/2024 8:02 AM INTEGRITY MANAGER) CHOLESTEROL 189 <200 MG/DL 06/26/2024 3:06 PM [facility] TRIGLYCERIDES 93 <150 MG/DL 06/26/2024 3:06 PM [facility] HDL 67 >40 MG/DL 06/26/2024 3:06 PM [facility] LDL-C 103(H) <100 MG/DL 06/26/2024 3:06 PM [facility] VLDL CALCULATION 19 5 - 28 MG/DL 06/26/2024 3:06 PM INTEGRITY MANAGER [facility] CHOL/HDL RATIO 2.8 0.0 - 4.0 06/26/2024 3:06 PM INTEGRITY MANAGER [facility] LDL/HDL 1.5 0.41 - 2.13 06/26/2024 3:06 PM INTEGRITY MANAGER [facility] NON HDL CHOLESTEROL 122 <140 MG/DL 06/26/2024 3:06 PM INTEGRITY MANAGER [facility] 06/26/2024 8:02 AM INTEGRITY MANAGER Betina Ag MD LABORATORY Final Result [facility] [address] [place] [address], * (ABNORMAL) CBC W/DIFF AUTOMATED (06/26/2024 8:02 AM INTEGRITY MANAGER) WBC 4.76 4.00 - 10.80 x10'3/uL 06/26/2024 2:57 PM INTEGRITY MANAGER [facility] RBC 4.21 4.10 - 5.40 x10'6/uL 06/26/2024 2:57 PM INTEGRITY MANAGER [facility] HGB 12.5 12.0 - 16.0 G/DL 06/26/2024 2:57 PM [facility] HCT 37.3 36.0 - 47.0 % 06/26/2024 2:57 PM INTEGRITY MANAGER [facility] MCV 88.6 78.0 - 100.0 FL 06/26/2024 2:57 PM INTEGRITY MANAGER [facility] MCH 29.7 27.0 - 31.0 PG 06/26/2024 2:57 PM INTEGRITY MANAGER [facility] MCHC 33.5 33.0 - 36.0 G/DL 06/26/2024 2:57 PM INTEGRITY MANAGER [facility] RDW 13.6 11.5 - 14.5 % 06/26/2024 2:57 PM [facility] PLT 416(H) 150 - 350 x10'3/uL 06/26/2024 2:57 PM [facility] MPV 8.8 7.4 - 10.4 FL 06/26/2024 2:57 PM [facility] DIFFERENTIAL TYPE AUTOMATED DIFFERENTIAL 06/26/2024 2:59 PM [facility] NEUTROPHILS % 57.0 % 06/26/2024 2:59 PM [facility] LYMPHOCYTES % 34.2 % 06/26/2024 2:59 PM [facility] MONOCYTES % 6.3 % 06/26/2024 2:59 PM [facility] EOSINOPHILS % 2.1 % 06/26/2024 2:59 PM [facility] BASOPHILS % 0.4 % 06/26/2024 2:59 PM [facility] IMMATURE GRANS % 0.0 % 06/26/2024 2:59 PM [facility] ABS. NEUTROPHILS 2.71 1.60 - 8.30 x10'3/uL 06/26/2024 2:59 PM [facility] ABS. LYMPHOCYTES 1.63 0.80 - 4.70 x10'3/uL 06/26/2024 2:59 PM [facility] ABS. MONOCYTES 0.30 0.00 - 1.50 x10'3/uL 06/26/2024 2:59 PM [facility] ABS. EOSINOPHILS 0.10 0.00 - 0.40 x10'3/uL 06/26/2024 2:59 PM [facility] ABS. BASOPHILS 0.02 0.00 - 0.20 x10'3/uL 06/26/2024 2:59 PM [facility] ABS. IMMATURE GRANULOCYTES 0.00 0.00 - 0.03 x10'3/uL 06/26/2024 2:[address] [facility] 06/26/2024 8:02 AM INTEGRITY MANAGER Betina Ag MD LABORATORY Final Result Performing Organization Address City/[facility]/ZIP Co de Phone Number [facility] [place] [address] [place] [address], [place] [phone] * (ABNORMAL) URINALYSIS AUTO DIP (06/23/2024) Pathologist [facility] COLOR (U) YELLOW YELLOW [address], [place] TRANSPARENCY CLEAR CLEAR [address], [place] GLUCOSE (U) NEGATIVE NEGATIVE MG/DL [address], [place] BILIRUBIN (U) NEGATIVE NEGATIVE MG-[address], [place] KETONES MG/DL (U) NEGATIVE NEGATIVE MG/DL [address], [place] SPECIFIC GRAVITY (U) 1.020 1.001 - 1.035 [address], [place] BLOOD (U) NEGATIVE NEGATIVE [address], [place] U PH 7.0 5.0 - 9.0 [address], [place] PROTEIN (U) TRACE(A) NEGATIVE mg/dL MG[address], [place] UROBILINOGEN 1.0 0.2 - 1.0 EU/dL = mg/dL [address], [place] NITRITES NEGATIVE NEGATIVE MG/DL [address], [place] LEUKOCYTES (U) NEGATIVE NEGATIVE MG-[address], [place] URINE SPECIMEN OBTAINED BY CLEAN CATCH PROCEDURE / Unknown 06/23/2024 Betina Ag MD URINE ORDERABLES Final Result [address], [place] [address] [place] [address], * HEPATITIS C ANTIBODY (01/15/2022 9:22 AM CDT) HEPATITIS C AB NON-REACTI VE NON-REACT BRODY 01/15/2022 6:15 PM CDT [facility] Comment: ANTIBODIES TO HCV NOT DETECTED. DOES NOT EXCLUDE THE POSSIBILITY OF EXPOSURE TO HCV. 01/15/2022 9:22 AM CDT us Betina Ag MD LABORATORY Final Result [facility] [address] [place] [address], [id number] * OUTSIDE CYTOPATH CERV/VAG INTERPRET (PAP) (08/12/2020) 08/12/2020 Narrative 08/12/2020 Ordered by an unspecified provider. us Documents Scanned SCANNING Final Result from Last 3 Months or Most Recently Relevant to Health Maintenance Insurance [facility] Care Teams Jig Mill Operator Relationship Specialty Start Date End Date Betina Ag MD [address] [facility] [address] [place] [address] PCP - General INTERNAL MEDICINE 01/03/21 Sherry Martinez PA-C [facility] [place] [address] Referring Physician Physician Trouble Lineman Medical 01/04/24
--- OUTSIDE RECORDS SUMMARY | 2024-08-15 20:06 | XMS_ITS | Encounter Summary ---
Author Organization [facility] Address [address] [place] [address] Care Team Providers Care Brazing Machine Operator Name Role Phone Betina Ag MD Primary Care Provider [phone] Sherry Martinez PA-C Unavailable [phone] Encounter Details Date Type Department Care Team (Late st Contact Info) Description 01/19/2022 BA Systems Message Enc [facility] Medical Group Multispecialty Care - [address] [place] [address] [place], [facility] Provider test results Social History Tobacco Use [...] Total Score: 1 07/28/19 22 10:30 AM BOTTOM SANDER documented as of this encounter Care Teams Brazing Machine Operator Relationship Specialty Start Date End Date Betina Ag MD [address] [address] PCP - General INTERNAL MEDICINE 01/03/21 Sherry Martinez PA-C [address] [place] [address] Referring Physician Physician Yeast Pumper Medical 01/04/24 documented as of this encounter
--- OUTSIDE RECORDS SUMMARY | 2024-08-15 20:06 | XMS_ITS | Encounter Summary ---
Author Organization [facility] Address [address] [place] [address] Care Team Providers Care Screen Door Maker Name Role Phone Betina Ag MD Primary Care Provider [phone] Encounter Details Date Type Department Care Team (Late st Contact Info) Description 08/15/2024 Patient Self-Triage [facility] HealthCare/ Physicians [address] [place] [address] Mychart, Generic Provider [address] [place], [place] [address] Social History Tobacco Use Types Packs/Day Years Used Date Smoking Tobacco: Never Smokeless Tobacco: Never Alcohol Use Standard Drinks/Week Comments Yes 0 (1 standard drink = 0.6 oz pur e alcohol) Comments Unknown Sex and Gender Information Value Date Recorded Sex Assigned at Not on file Legal Sex Female 3:14 AM BUILDING DRAFTING OFFICER Gender Identity Not on file Sexual Orientation Not on file documented as of this encounter Plan of Treatment Not on file documented as of this encounter Visit Diagnoses Not on filedocumented in this encounter Care Teams Screen Door Maker Relationship Specialty Start Date End Date Betina Ag MD [address] [place] [address] PCP - General Internal Medicine 07/15/23 documented as of this encounter
--- OUTSIDE RECORDS SUMMARY | 2024-08-15 20:06 | XMS_ITS | Referral Summary ---
Author Organization [facility] Address [address] [place] [address] Care Team Providers Care Project Finance Analyst Name Role Phone Betina Ag MD Primary Care Provider [phone] Source Comments [facility],non-owned Affiliates and Associated Physician Practices is amultiple site organization consisting of ambulatory clinics and hospital sitesin [place], [place], [place] and [place]. This disclosure is being madepursuant to the Care Everywhere program and may not contain all information available regarding this patient. Last updated 18.[facility] Allergies No known active allergies Medications * [...] 9:49 PM 06/29/2021 4:27 PM Care Teams Project Finance Analyst Relationship Specialty Start Date End Date Betina Ag MD [address] [facility] [address] [place], [place] [address] PCP - General Internal Medicine 01/02/21
--- OUTSIDE RECORDS SUMMARY | 2024-08-15 20:06 | XMS_ITS | Encounter Summary ---
Author Organization [facility] Address [facility] [place] [address] Care Team Providers Care Health Education Teacher Name Role Phone Betina Ag MD Primary Care Provider [phone] Sherry Martinez PA-C Unavailable [phone] Encounter Details Date Type Department Care Team (Late st Contact Info) Description 08/27/2023 [employer] Message Enc [facility] Medical Group Multispecialty Care - [place] [address] [address] [place], [place] [address] Betina Ag MD [address] [place] [address] [address] [place] [address] Sick day Social History Tobacco [...] Depression Total Score: 14 024 2:02 PM INTERNET ECOMMERCE SPECIALIST documented as of this encounter Care Teams Health Education Teacher Relationship Specialty Start Date End Date Betina Ag MD [address] [address] PCP - General INTERNAL MEDICINE 01/03/21 Sherry Martinez, PAPilyC [address] [place] [address] Referring Physician Physician Paper Coater Medical 01/04/24 documented as of this encounter
--- OUTSIDE RECORDS SUMMARY | 2024-08-15 20:06 | XMS_ITS | Encounter Summary ---
Author Organization [facility] Address [facility] [place] [address] Care Team Providers Care Water Hauler Name Role Phone Betina Ag MD Primary Care Provider [phone] Sherry Martinez PA-C Unavailable [phone] Encounter Details Date Type Department Care Team (Latest Contact Info) Description 11/17/2022 Rosalindt Message Enc [facility] Medical Group Multispecialty Care - [address] [place], [place] [address] Betina Ag MD [address] [place] [address] [address] [place] [address] Anxiety medications Social History Tobacco [...] Total Score: 1 07/28/19 22 10:30 AM CATALOGING ASSISTANT documented as of this encounter Care Teams Water Hauler Relationship Specialty Start Date End Date Betina Ag MD [address] [facility] [address] [place] [address] PCP - General INTERNAL MEDICINE 01/03/21 Sherry Martinez PAPilyC [facility] [place] [address] Referring Physician Physician Electronics Technology Department Chair Medical 01/04/24 documented as of this encounter
--- OUTSIDE RECORDS SUMMARY | 2024-08-15 20:06 | XMS_ITS | Encounter Summary ---
Author Organization [facility] Address [facility] [place] [address] Care Team Providers Care Pyridine Recovery Operator Name Role Phone Betina Ag MD Primary Care Provider [phone] Sherry Martinez PA-C Unavailable [phone] Encounter Details Date Type Department Care Team (Late st Contact Info) Description 05/19/2023 1-800-DENTISTt Message Enc [facility] Medical Group Multispecialty Care - [place] [address] [address] [place], [place] [address] Betina Ag MD [address] [place] [address] [address] [place] [address] Note Social History Tobacco Use [...] Total Score: 1 05/18/20 23 3:49 PM FINANCE BROKER documented as of this encounter Care Teams Pyridine Recovery Operator Relationship Specialty Start Date End Date Betina Ag MD [address] [facility] [address] [place] [address] PCP - General INTERNAL MEDICINE 01/03/21 Sherry Martinez PAPilyC [address] [place] [address] Referring Physician Physician Checkroom Attendant Medical 01/04/24 documented as of this encounter
--- OUTSIDE RECORDS SUMMARY | 2024-08-15 20:06 | XMS_ITS | Encounter Summary ---
Author Organization [facility] Address [facility] [place] [address] Care Team Providers Care Scrubber Operator Name Role Phone Betina Ag MD Primary Care Provider [phone] Sherry Martinez PA-C Unavailable [phone] Encounter Details Date Type Department Care Team (Late st Contact Info) Description 05/17/2021 Shipwiret Message Enc [facility] Medical Group Multispecialty Care - [address] [place] [address] Betina Ag MD [address] [place] [address] 157 [place] [address] lab results Social History Tobacco [...] COVID-19? No / Unsure 05/15/2021 10:43 AM K 8 SCHOOL PRINCIPAL documented as of this encounter Plan of [...] documented as of this encounter Care Teams Scrubber Operator Relationship Specialty Start Date End Date Betina Ag MD [address] [address] PCP - General INTERNAL MEDICINE 01/03/21 Sherry Martinez, PAPilyC [address] [place] [address] Referring Physician Physician Acquisition Marketing Manager Medical 01/04/24 documented as of this encounter
--- OUTSIDE RECORDS SUMMARY | 2024-08-15 20:06 | XMS_ITS | Encounter Summary ---
Author Organization [facility] Address [facility] [place] [address] Care Team Providers Care Referral Management Liaison Name Role Phone Betina Ag MD Primary Care Provider [phone] Sherry Martinez PA-C Unavailable [phone] Encounter Details Date Type Department Care Team (Latest Contact Info) Description 11/26/2021 Pickiet Message Enc [facility] Medical Group Multispecialty Care - [address] [place] [address] Betina Ag MD [address] [place] [address] [address] [place] [address] Question regarding CBC W/DIFF AUTOMATED [...] Total Score: 1 07/28/19 22 10:30 AM ENTERPRISE SALES EXECUTIVE documented as of this encounter Care Teams Referral Management Liaison Relationship Specialty Start Date End Date Betina Ag MD [address] [address] PCP - General INTERNAL MEDICINE 01/03/21 Sherry Martinez, PAPilyC [address] [place] [address] Referring Physician Physician Installation Helper Medical 01/04/24 documented as of this encounter
--- OUTSIDE RECORDS SUMMARY | 2024-08-15 20:06 | XMS_ITS | Clinical Summary ---
Author Organization [facility] Address [address] [place] [address] Care Team Providers Care Packer Name Role Phone Betina Ag MD Primary Care Provider [phone] Source Comments [facility],non-owned Affiliates and Associated Physician Practices is amultiple site organization consisting of ambulatory clinics and hospital sitesin [place], [place], [place] and [place]. This disclosure is being madepursuant to the Care Everywhere program and may not contain all information available regarding this patient. Last updated 18.[facility] Allergies No known active allergies Medications * [...] 9:49 PM 06/29/2021 4:27 PM Care Teams Packer Relationship Specialty Start Date End Date Betina Ag MD [address] [facility] [address] [place] [address] PCP - General Internal Medicine 01/02/21
--- OUTSIDE RECORDS SUMMARY | 2024-08-15 20:06 | XMS_ITS | Encounter Summary ---
Author Organization [facility] Address [address] [place] [id number] Care Team Providers Care Waiter/Waitress Take Out Name Role Phone Betina Ag MD Primary Care Provider [phone] Sherry Martinez PA-C Unavailable [phone] Encounter Details Date Type Department Care Team (Late st Contact Info) Description 08/20/2022 MyChart Message Enc [facility] Multispecialty Care - [address] [place] [address] [place] [address] [place] [address] [address] [place] [address] Anxiety Social History Tobacco Use [...] Coronavirus/COVID-19? No / Unsure 07/21/2022 8:09 AM CADDY/CADDIE SUPERVISOR documented as of this encounter Plan of Treatment Not on file documented as of this encounter Visit Diagnoses Not on filedocumented in this encounter Additional Health Concerns Infection Onset Date Last Indicated Resolved Time COVID-19 Rule Out 03/10/2024 03/10/2024 03/10/2024 10:58 AM CDT COVID-19 Confirmed 03/10/2024 03/10/2024 12:32 AM CDT Assessment Noted Time PHQ-9 Depression Total Score: 1 07/28/19 22 10:30 AM CADDY/CADDIE SUPERVISOR documented as of this encounter Care Teams Waiter/Waitress Take Out Relationship Specialty Start Date End Date Betina Ag MD [address] [facility] [address] [place] [address] PCP - General INTERNAL MEDICINE 01/03/21 Sherry Martinez, PAPilyC [address] [place] [address] Referring Physician Physician [employer] [facility] 01/04/24 documented as of this encounter
--- OUTSIDE RECORDS SUMMARY | 2024-08-15 20:06 | XMS_ITS | Encounter Summary ---
Author Organization [facility] Address [address] [place] [address] Care Team Providers Care Hand Ornament Maker Name Role Phone Betina Ag MD Primary Care Provider [phone] Sherry Martinez PA-C Unavailable [phone] Encounter Details Date Type Department Care Team (Late st Contact Info) Description 08/14/2022 The [employer] Message Enc [facility] Multispecialty Care - [address] [place] [address] [place], [facility] Provider MMR Social History Tobacco Use [...] Coronavirus/COVID-19? No / Unsure 07/21/2022 8:09 AM RETIREMENT BENEFITS SPECIALIST documented as of this encounter Plan of Treatment Not on file documented as of this encounter Visit Diagnoses Not on filedocumented in this encounter Additional Health Concerns Infection Onset Date Last Indicated Resolved Time COVID-19 Rule Out 03/10/2024 03/10/2024 03/10/2024 10:58 AM CDT COVID-19 Confirmed 03/10/2024 03/10/2024 12:32 AM CDT Assessment Noted Time PHQ-9 Depression Total Score: 1 07/28/19 22 10:30 AM RETIREMENT BENEFITS SPECIALIST documented as of this encounter Care Teams Hand Ornament Maker Relationship Specialty Start Date End Date Betina Ag MD [address] [address] PCP - General INTERNAL MEDICINE 01/03/21 Sherry Martinez PA-C [address] [place] [address] Referring Physician Physician [employer] [facility] 01/04/24 documented as of this encounter
== END 2024-08-15 19:36 | disposition left against medical advice (07) ==
PROVIDERS: PCP Internal Medicine
DX: Z53.21 Procedure and treatment not carried out due to patient leaving prior to being seen by health care provider (principal)
CPT/HCPCS: 99199